=== PATIENT | female | born 1960 | race Caucasian/White ===

== ENCOUNTER 2019-08-17 09:29 | Outpatient (CLI) | payer MEDICARE, SELFPAY ==
--- NOTE | 2019-08-17 | XR_ITS ---
WS: [id number] LATERAL LUMBAR SPINE: 3 view. Lateral radiographs are performed in upright neutral, flexion and extension to the patient's toleranc e. HISTORY: LUMBOSACRAL RADICULOPATHY COMPARISON: 05/05/2018 L4 anterolisthesis by 8.1 mm on neutral imaging. During flexion anterolisthesis is 9.1 mm and during extension 4.6 mm. Otherwise disc spaces and vertebral body heights are well-maintained with the exception of moderate n arrowing at L5-S1. No fracture. XR/XR lumbar spine 2-3V* [id number] IMPRESSION: Grade 1 spondylolisthesis of L4 with mild instability during extension.
== END 2019-08-17 09:30 | disposition home or self-care (01) ==
PROVIDERS: Family Provider Family Medicine; Visit Provider Family Medicine
DX: M54.17 Radiculopathy, lumbosacral region (principal); M43.16 Spondylolisthesis, lumbar region

== ENCOUNTER 2019-12-02 09:45 | Outpatient (CLI) | payer MEDICARE, SELFPAY ==
--- NOTE | 2019-12-02 10:15 | CT_ITS ---
WS: [id number] CT LUMBAR SPINE TECHNIQUE: Noncontrast CT of the lumbar spine with coronal and sagittal reformatted images. CLINICAL INFORMATION: Low back pain COMPARISON: MRI September 08, 2019 DLP: 2060.[address] scans at [facility] use at least one of these dose optimization techniques: automat ed exposure control; mA and/or kV adjustment per patient size (includes targeted exams where dose is matched to clinical indication); or iterative reconstruction. FINDINGS: Mild lumbar curve. No acute compression. Slight anterolisthesis L4 on L5. Vacuum disc phenomenon L4-5 . Disc space narrowing worse L5-S1 with osteophytic ridging. L1-L2: Normal. L2-L3: Mild disc bulging with osteophytic ridging. Mild central canal stenosis. Moderate facet arthro abel. Mild bilateral foraminal narrowing. L3-L4: Mild disc bulging with osteophytic ridging. Moderate central canal stenosis. Moderate facet ar thropathy and ligamentum flavum hypertrophy. Mild left greater than right foraminal narrowing. L4-L5: Slight anterolisthesis L4 on L5. Disc bulging with osteophytic ridging results in severe centr al canal stenosis. Advanced facet arthropathy. Mild left greater than right foraminal narrowing. L5-S1: Mild disc bulging with osteophytic ridging. Disc space narrowing. Advanced facet arthropathy. Narrowing of the subarticular recess bilaterally. Mild right foraminal narrowing. Visualized pelvic bony structures: Normal. Paravertebral soft tissues: Normal. CT/CT lumbar spine wo con* [id number] IMPRESSION: 1. Mild lumbar curve with grade 1 anterolisthesis L4 on L5 unchanged. 2. Severe central canal stenosis L4-5 due to disc osteophyte complex with face t arthropathy ligament flavum hypertrophy. Advanced facet arthropathy at this l evel. 3. Mild central canal stenosis L2-3 and moderate central canal stenosis L3-4. 4. Mild foraminal narrowing described above. 5. Moderate to advanced facet arthropathy L3-4 and L4-5.
== END 2019-12-02 09:46 | disposition home or self-care (01) ==
PROVIDERS: Family Provider Family Medicine; PCP Family Medicine; Visit Provider Licensed Practical Nurse
DX: M54.5 Low back pain (principal); M48.061 Spinal stenosis, lumbar region without neurogenic claudication; M25.78 Osteophyte, vertebrae; M47.816 Spondylosis without myelopathy or radiculopathy, lumbar region
CPT/HCPCS: 72131

== ENCOUNTER 2021-04-25 14:52 | Outpatient (CLI) | payer MEDICARE, SELFPAY ==
--- NOTE | 2021-04-25 15:01 | MM_ITS ---
WS: [id number] BILATERAL DIGITAL SCREENING MAMMOGRAPHY WITH CAD CLINICAL INFORMATION: SCREENING HISTORY: Screening mammogram. No current complaints. COMPARISON: 3 5 TECHNIQUE: Bilateral CC and MLO views. FINDINGS: Scattered fibroglandular densities bilaterally. No suspicious focal mass, asymmetry, calcifications, or architectural distortion. No evidence of malignancy. A few punctate calcifications. Intramammary l ymph node upper outer left breast is unchanged. MM/[id number] IMPRESSION: BI-RADS: 2-Benign FOLLOW UP: 1 Year Follow-up Recommend return to annual screening mammography.
== END 2021-04-25 14:53 | disposition home or self-care (01) ==
LOC: RADSHAW 14:57
PROVIDERS: PCP Family Medicine; Visit Provider Family Medicine
DX: Z12.31 Encounter for screening mammogram for malignant neoplasm of breast (principal)
CPT/HCPCS: 77067

== ENCOUNTER 2022-01-23 15:25 | Outpatient (CLI) | payer MEDICARE, SELFPAY ==
--- NOTE | 2022-01-23 15:31 | MM_ITS ---
WS: [id number] VIEWS: MLO and CC views both breasts. 3D digital tomosynthesis is also included in this exam. Comparison made with prior exam of 09/01/2007, 10/05/2014, 04/25/2021.. Findings: Stable appearing nodular densities in both breasts. No areas of architectural distortion or suspiciou s calcification. Scattered fibroglandular densities MM/[id number] Impression: BI-RADS: 2-Benign FOLLOW-UP: 1 Year Follow-up This mammogram was also analyzed by the Computer Aided Detection System [employer] Employee Relations Assistant.
== END 2022-01-23 15:26 | disposition home or self-care (01) ==
LOC: RAD 15:26
PROVIDERS: PCP Family Medicine; Visit Provider Family Medicine
DX: Z12.31 Encounter for screening mammogram for malignant neoplasm of breast (principal)
CPT/HCPCS: 77063; 77067

== ENCOUNTER → 2022-12-04 10:40 | Outpatient (BNVA) | payer MEDICARE, SELFPAY | PROVIDERS: PCP Family Medicine; Referring Provider Family Medicine; Visit Provider Orthopaedic Surgery | DX: M17.0 Bilateral primary osteoarthritis of knee (principal) | CPT/HCPCS: 99203 ==

== ENCOUNTER 2023-01-25 08:23 | Outpatient (CLI) | payer MEDICARE, SELFPAY ==
--- NOTE | 2023-01-25 08:29 | MM_ITS ---
WS: [id number] BILATERAL SCREENING DIGITAL TOMOSYNTHESIS MAMMOGRAM WITH CAD HISTORY: SCREENING COMPARISON: 01/23/2022 and 04/25/2021 Bilateral CC and MLO views with tomosynthesis and synthetic mammography submitted. Computer aided det ection analyzed. Breast composition: There are scattered areas of fibroglandular density. No suspicious masses, microc alcifications or architectural distortion. Benign calcifications. Benign lymph node upper outer quadr ant LEFT breast. MM/[id number] IMPRESSION: BI-RADS: 2-Benign FOLLOW UP: 1 Year Follow-up
== END 2023-01-25 08:24 | disposition home or self-care (01) ==
PROVIDERS: PCP Family Medicine; Visit Provider Family Medicine
DX: Z12.31 Encounter for screening mammogram for malignant neoplasm of breast (principal)
CPT/HCPCS: 77063; 77067

== ENCOUNTER 2024-01-28 13:08 | Outpatient (CLI) | payer MEDICARE, SELFPAY ==
--- NOTE | 2024-01-28 13:19 | MM_ITS ---
WS: [id number] BILATERAL 3D TOMOSYNTHESIS DIGITAL SCREENING MAMMOGRAPHY WITH CAD CLINICAL INFORMATION: SCREENING HISTORY: Screening mammogram. No current complaints. COMPARISON: 2022 TECHNIQUE: Bilateral CC and MLO views. FINDINGS: Scattered fibroglandular densities bilaterally. No suspicious focal mass, asymmetry, calcifications, or architectural distortion. No evidence of malignancy. Incidental punctate and lucent centered calci fications. Vascular calcifications. MM/[id number] IMPRESSION: BI-RADS: 2-Benign FOLLOW UP: 1 Year Follow-up Recommend return to annual screening mammography.
== END 2024-01-28 13:09 | disposition home or self-care (01) ==
LOC: RAD 13:11
PROVIDERS: PCP Family Medicine; Visit Provider Family Medicine
DX: Z12.31 Encounter for screening mammogram for malignant neoplasm of breast (principal); R92.323 Mammographic fibroglandular density, bilateral breasts; R92.1 Mammographic calcification found on diagnostic imaging of breast
CPT/HCPCS: 77063; 77067

== ENCOUNTER 2024-04-13 10:09 | Emergency (ER) | payer MEDICARE, SELFPAY ==
[2024-04-13 10:16] VITALS: BP 141/99; PULSE 93; TEMP 36.4; O2SAT 98; BMI 32.9
--- NOTE | 2024-04-13 10:29 | XR_ITS ---
WS: [id number] XR knee RT 3V* [id number] REASON FOR EXAM: injury FINDINGS: There is relatively severe osteoarthritis in all 3 knee joint compartments. No acute fracture is identified. There is been advancement of the osteoarthritis in the medial knee joint compartment compared to prev ious examination of 11/19/2022, otherwise no significant interval change. XR/XR knee RT 3V* [id number] IMPRESSION: Relatively severe osteoarthritis of the right knee. No acute abnormality.
--- NOTE | 2024-04-13 10:31 | ED_ITS ---
HPI - Extremity Injury (Lower) 2 General: Chief Complaint: Extremity Injury, Lower Stated Complaint: fall Time Seen by Provider: 04/13/24 10:13 Source: patient Mode of arrival: EMS Limitations: no limitations History of Present Illness: Patient is a 64-year-old female presents to ED today with a complaint of an injury to her right knee. Patient states she was walking to her car when she felt like her knees locked . She states she was able to lower herself to the ground but did hear a pop in her right knee and has had pain since. She states it took multiple EMS personnel to get her up into the ambulance. She denies any other injuries sustained. Patient has reported a few falls over the past several months from weakness. Patient reportedly had a gastric bypass surgery back in June in [place] and states since the surgery she has felt weak. She has had continued follow-up through her bariatric team. complaint: knee injury Onset (ago): hour(s) Injury: Right: knee Place: home Severity: moderate Relieving factors: immobilization Exacerbating factors: weight bearing, movement and palpation Other symptoms: none Related Data Home Medications Medication Instructions Recorded Confirmed diphenhydramine 25 3 tab PO BEDTIME PRN Pain 10/23/19 04/13/24 mg-acetaminophen 500 mg tablet (Tylenol PM Extra Strength) fluticasone propionate 50 1 inh inhalation DAILY PRN 10/23/19 04/13/24 mcg/actuation blister powder for allergies inhalation gabapentin 400 mg capsule 400 mg PO TID 10/23/19 04/13/24 levothyroxine 137 mcg capsule 137 mcg PO DAILY 10/23/19 04/13/24 tramadol 50 mg tablet 50 mg PO TID PRN Pain 10/23/19 04/13/24 multivitamin with iron 1 tab PO DAILY 04/13/24 04/13/24 omeprazole 40 mg capsule,delayed 40 mg PO DAILY 04/13/24 04/13/24 release Allergies Allergy/AdvReac Type Severity Reaction Status Date / Time No Known Allergies Allergy Verified 04/13/24 10:22 Review of Systems 2 Const: Reports: other (generalized weakness); Denies: fever(s), chills, body aches, fatigue or malaise Card: Denies: chest pain, palpitations, lightheadedness, syncope or pre- syncope Resp: Denies: dyspnea GI: Denies: abdominal pain or vomiting : Denies: flank pain or dysuria Musc: Reports: joint pain (R knee); Denies: neck pain, back pain, extremity pain or extremity swelling Neuro: Denies: numbness in extremities or sensory changes PFSH ED 2 PFSH: Medical History (Updated 04/13/24 @ 15:01 by WINNIE Rodríguez) Instability of joint Spondylolisthesis, lumbar region Morbid obesity with BMI of 50.0-59.9, adult Lumbar stenosis with neurogenic claudication Intervertebral disc disorder with radiculopathy of lumbosacral region Spondylolisthesis (~08/15/16) Surgical History History of tonsillectomy History of knee surgery right knee laproscopic History of hysterectomy History of cervical spinal surgery (~2016) Dr. Abran Colindres Family History Mother Stroke Arthritis Social History Smoking and tobacco/nicotine status: never used tobacco/nicotine Alcohol intake: never Substance/Drug Use: never Household members: spouse and family Marital status: Current occupational status: retired and disabled Physical Exam 2 Const: COMMON NORMALS: no acute distress, patient oriented x3, no limitations, alert and well nourished GENERAL APPEARANCE: cooperative O RIENTATION/CONSCIOUSNESS: Yes awake, Yes oriented to person, Yes oriented to place and Yes oriented to time HENMT: COMMON NORMALS: normocephalic and atraumatic HEAD & SCALP: normal to inspection, normocephalic and atraumatic Neck/C-Spine: COMMON NORMALS: full ROM CERVICAL SPINE: No Cervical spine tenderness Chest: COMMONS NORMALS: normal inspection of the chest and normal palpation of entire chest wall Resp: COMMON NORMALS: normal respiratory effort and clear to auscultation bilaterally AUSCULTATION: clear to auscultation bilaterally Cardio: COMMON NORMALS: regular rate and regular rhythm RATE: regular rate RHYTHM: regular rhythm GI: COMMON NORMALS: non-tender AUSCULTATION: Yes normoactive bowel sounds : COMMON NORMALS: Yes no CVA tenderness BLADDER/KIDNEY EXAM: Yes no CVA tenderness Back/Pelvis: COMMON NORMALS: no CVA tenderness and thoracic and lumbar spine normal to inspection Extremity: COMMON NORMALS: capillary refill normal, no calf tenderness and no pedal edema GENERAL: Yes normal exam except as noted RIGHT LOWER EXTREMITY: Yes knee joint Right knee: Yes palpation (TTP; significant arthritic crepitus noted) and Yes neurovascular exam (normal) Neuro: COMMON NORMALS: patient oriented x3, moves all extremities, no focal motor deficits and no sensory deficits noted SENSORIUM/ORIENTATION: Yes alert, Yes oriented to person, Yes oriented to place and Yes oriented to time Skin: COMMON NORMALS: no rashes or lesions noted GENERAL SKIN EXAM: no rashes or lesions noted Course 2 Vital Signs: Vital signs: Vital Signs Temperature 97.5 F L 04/13/24 10:16 Pulse Rate 77 04/13/24 11:58 Respiratory Rate 16 04/13/24 14:51 Blood Pressure 155/91 04/13/24 14:51 Pulse Oximetry 98 04/13/24 14:51 Oxygen Delivery Me thod Room Air 04/13/24 10:16 MDM - Extremity Injury (Lower) Medical Decision Making Patient here following a right knee injury. Her XR is unremarkable apart from chronic severe osteoarthritis. She was ambulatory here without difficulty or assistance. CBC, CMP obtained due to her complaint of weakness. She states this has been present since June since she had her bariatric surgery. She has a follow-up appointment with them on Saturday. CBC is unremarkable. Her CMP showing mild hypokalemia at 3.1. She was given oral replacement for this. Her LFTs are mildly elevated. We do not have any previous lab values for comparison. Patient is status postcholecystectomy. She did have hepatitis/HIV testing ran on her as one of the RN/phlebotomists stuck herself during lab draw. These are unremarkable. We attempted to contact [facility] for previous lab records however after waiting several hours they still have not faxed these. We will have patient follow-up with her bariatric team on Saturday as scheduled and bring these labs today with her so they can compare with previous values. If these are new she will require further evaluation for these. She has no complaints of abdominal pain at this time. She is not vomiting. I do not feel she needs emergent imaging at this time. Medical Records I reviewed the patient's medical records. Lab Data I reviewed the patient's lab results. 04/13/24 12:34 04/13/24 12:34 Radiology Impressions Knee X-Ray 04/13/24 10:29 IMPRESSION: Relatively severe osteoarthritis of the right knee. No acute abnormality. Laboratory Results WBC 7.63 10^3/uL (3.29-11.43) 04/13/24 12:34 RBC 5.00 10^6/uL (3.85-5.65) 04/13/24 12:34 Hgb 15.10 g/dL (11.27-16.99) 04/13/24 12:34 Hct 45.6 % (36-47) 04/13/24 12:34 MCV 91.2 fl (85-98) 04/13/24 12:34 MCH 30.2 pg (27-33) 04/13/24 12:34 MCHC 33.1 g/dL (30-55) 04/13/24 12:34 RDW 12.2 % (12.1-15.1) 04/13/24 12:34 Plt Count 235 10^3/cmm (157-399) 04/13/24 12:34 MPV 10.9 fL (7.4-10.4) H 04/13/24 12:34 Neut % (Auto) 82.6 % 04/13/24 12:34 Lymph % (Auto) 11.7 % 04/13/24 12:34 Walsh % (Auto) 5.1 % 04/13/24 12:34 Eos % (Auto) 0.1 % 04/13/24 12:34 Baso % (Auto) 0.4 % 04/13/24 12:34 Neut # (Auto) 6.30 10^3/uL (1.8-7.7) 04/13/24 12:34 Lymph # (Auto) 0.9 10^3/uL (0.8-4.8) 04/13/24 12:34 Walsh # (Auto) 0.4 10^3/uL (0.2-0.9) 04/13/24 12:34 Eos # (Auto) 0.0 10^3/uL (0.0-0.8) 04/13/24 12:34 Baso # (Auto) 0.0 10^3/uL (0.0-0.1) 04/13/24 12:34 Nucleated RBC % (auto) 0 % 04/13/24 12:34 Nucleated RBCs # 0.0 /100WBC 04/13/24 12:34 Sodium 142 mmol/L (136-145) 04/13/24 12:34 Potassium 3.1 mmol/L (3.5-5.1) L 04/13/24 12:34 Chloride 103 mmol/L (98-107) 04/13/24 12:34 Carbon Dioxide 25 mmol/L (22-29) 04/13/24 12:34 Anion Gap 17.1 (5-19) 04/13/24 12:34 BUN 12 mg/dL (8-23) 04/13/24 12:34 Creatinine 0.8 mg/dL (0.5-0.9) 04/13/24 12:34 GFR Calculation 72.0 mL/min (90-130) L 04/13/24 12:34 Glucose 124 mg/dL (65-115) H 04/13/24 12:34 Calculated Osmolality 295 mOsm/kg (285-295) 04/13/24 12:34 Calcium 9.5 mg/dL (8.5-10.5) 04/13/24 12:34 Total Bilirubin 2.4 mg/dL (0.15-1.2) H 04/13/24 12:34 AST 90 U/L (0-32) H 04/13/24 12:34 ALT 53 U/L (0-33) H 04/13/24 12:34 Alkaline Phosphatase 176 U/L (35-105) H 04/13/24 12:34 Total Protein 5.5 g/dL (6.6-8.7) L 04/13/24 12:34 Albumin 2.8 g/dL (3.5-5.2) L 04/13/24 12:34 Globulin 2.7 g/dL (1.3-4.6) 04/13/24 12:34 Hep Bs Antigen Non-reactive (Nonreactive) 04/13/24 12:34 Hepatitis C Antibody Non-reactive (Nonreactive) 04/13/24 12:34 HIV 1&2 Ab & HIV 1 Ag Non-reactive (Non-Reactiv) 04/13/24 12:34 HIV 1&2 Antibody Non-reactive (Non-Reactiv) 04/13/24 12:34 All radiology interpretation(s) finalized by discharge Discharge Plan Discharge Patient Disposition: Home Clinical Impression: Elevated LFTs Injury of knee, right Qualifiers: Encounter type: initial encounter Qualified Code(s): S89.91XA - Unspecified injury of right lower leg, initial encounter Condition: Stable Prescriptions: No Action fluticasone propionate 50 mcg/actuation blister with device 1 inh INHALATION DAILY PRN (Reason: allergies) levothyroxine 137 mcg capsule 137 mcg PO DAILY gabapentin 400 mg capsule 400 mg PO TID tramadol 50 mg tablet 50 mg PO TID PRN (Reason: Pain) diphenhydramine-acetaminophen [Tylenol PM Extra Strength] 25-500 mg tablet 3 tab PO BEDTIME PRN (Reason: Pain) omeprazole 40 mg capsule,delayed release(DR/EC) 40 mg PO DAILY multivitamin with iron Tablet 1 tab PO DAILY Discharge Orders: Discharge ED (Routine); Ordered 04/13/24 Ordered By: Mady Munoz Referrals: Noel Landon MD [Primary Care Provider] - Activity Restrictions/Additional Instructions: As we discussed, make sure you get a copy of your labs prior to discharge. Your liver enzymes were elevated today. Unknown whether these are new or chronic. We attempted records from [facility] however, after several hours, they still have yet to fax labs. I would like you to bring those labs with you to your appointment on Saturday so they can compare. He may require further follow-up for this. Coding Level of Care Code ED [employer] for Harshal Momin
--- NOTE | 2024-04-13 11:13 | PC.NURSE ---
this nurse assumed pt care at 1100.
[2024-04-13 11:58] VITALS: BP 128/92; PULSE 77; RESP 16; O2SAT 99
[2024-04-13 12:42] LABS: Basophils % 0.4 %; Eosinophils % 0.1 %; Hematocrit 45.6 % (36-47); Lymphocytes # 0.9 10^3/uL (0.8-4.8); Lymphocytes % 11.7 %; Mean Corpuscular HGB Conc 33.1 g/dL (30-55); Mean Corpuscular Hemoglobin 30.2 pg (27-33); Mean Corpuscular Volume 91.2 fl (85-98); Mean Platelet Volume 10.9 fL (7.4-10.4); Monocytes # 0.4 10^3/uL (0.2-0.9); Monocytes % 5.1 %; Neutrophils % 82.6 %; Nucleated Red Blood Cells % 0 %; Platelet Count 235 10^3/cmm (157-399); Red Cell Distribution Width 12.2 % (12.1-15.1); White Blood Count 7.63 10^3/uL (3.29-11.43)
[2024-04-13 13:05] LABS: Alanine Aminotransferase 53 U/L (0-33); Albumin Level 2.8 g/dL (3.5-5.2); Alkaline Phosphatase 176 U/L (35-105); Anion Gap 17.1 (5-19); Aspartate Amino Transferase 90 U/L (0-32); Blood Urea Nitrogen 12 mg/dL (8-23); Calcium 9.5 mg/dL (8.5-10.5); Carbon Dioxide 25 mmol/L (22-29); Chloride 103 mmol/L (98-107); Globulin 2.7 g/dL (1.3-4.6); Glucose 124 mg/dL (65-115); Osmolality Calculated 295 mOsm/kg (285-295); Potassium 3.1 mmol/L (3.5-5.1); Sodium 142 mmol/L (136-145); Total Bilirubin 2.4 mg/dL (0.15-1.2); Total Protein 5.5 g/dL (6.6-8.7)
[2024-04-13 14:27] LABS: Hepatitis B Surface Antigen Non-Reactive (Nonreactive); Hepatitis C Virus Antibody Non-Reactive (Nonreactive)
[2024-04-13] MEDS: potassium chloride ER 20 mEq Tablet 40 MEQ PO (14:43)
[2024-04-13 14:46] LABS: HIV 1 & 2 Antibody Non-Reactive (Non-Reactiv); HIV 1 & 2 Antigen Non-Reactive (Non-Reactiv)
[2024-04-13 14:51] VITALS: BP 155/91; RESP 16; O2SAT 98
[2024-04-13 15:19] VITALS: BP 151/93; PULSE 77; O2SAT 100
== END 2024-04-13 15:19 | disposition home or self-care (01) ==
PROVIDERS: Emergency Provider Physician Assistant; PCP Family Medicine
DX: S89.91XA Unspecified injury of right lower leg, initial encounter (principal); R79.89 Other specified abnormal findings of blood chemistry; X58.XXXA Exposure to other specified factors, initial encounter
CPT/HCPCS: 73562; 80053; 85025; 86803; 87340; 87806; 99284

== ENCOUNTER 2024-05-24 21:26 | Emergency (ER) | payer MEDICARE, SELFPAY ==
[2024-05-24 21:28] VITALS: BP 108/93; PULSE 72; RESP 16; TEMP 36.4; O2SAT 97; BMI 31.4
--- NOTE | 2024-05-24 21:36 | ED_ITS ---
HPI - Abdominal Pain 2 General: Chief Complaint: Nausea/Vomiting/Diarrhea Stated Complaint: ABD PAIN Time Seen by Provider: 05/24/24 21:34 History of Present Illness: 64-year-old female comes in today with c omplaints of abdominal pain since Saturday with diarrhea. Patient appears chronically ill. Patient appears pale. Patient has a history of asthma and hypothyroidism. Patient takes medication for GERD and pain. Patient has had gastric bypass 1 year ago, neck surgery, gallbladder removal, arthroscopy on the knee, and a hysterectomy. Patient denies diabetes or high blood pressure. Related Data Home Medications Medication Instructions Recorded Confirmed diphenhydramine 25 3 tab PO BEDTIME PRN Pain 10/23/19 04/13/24 mg-acetaminophen 500 mg tablet (Tylenol PM Extra Strength) fluticasone propionate 50 1 inh inhalation DAILY PRN 10/23/19 04/13/24 mcg/actuation blister powder for allergies inhalation gabapentin 400 mg capsule 400 mg PO TID 10/23/19 04/13/24 levothyroxine 137 mcg capsule 137 mcg PO DAILY 10/23/19 04/13/24 tramadol 50 mg tablet 50 mg PO TID PRN Pain 10/23/19 04/13/24 multivitamin with iron 1 tab PO DAILY 04/13/24 04/13/24 omeprazole 40 mg capsule,delayed 40 mg PO DAILY 04/13/24 04/13/24 release Previous Rx's Medication Instructions Recorded apixaban 5 mg (74 tabs) tablets in See Rx Instructions PO .COMPLEX 05/25/24 a dose pack ([employer] DVT-PE Treat #74 ea 30D Start) nitrofurantoin 100 mg PO BID 5 days #10 caps 05/25/24 monohydrate/macrocrystals 100 mg capsule (Macrobid) Allergies Allergy/AdvReac Type Severity Reaction Status Date / Time No Known Allergies Allergy Verified 04/13/24 10:22 Review of Systems 2 General: Reports: 10 or more systems reviewed and unremarkable except in HPI and below PFSH ED 2 PFSH: Medical History (Updated 05/25/24 @ 00:11 by PHILIP Moncada) Instability of joint Spondylolisthesis, lumbar region Morbid obesity with BMI of 50.0-59.9, adult Lumbar stenosis with neurogenic claudication Intervertebral disc disorder with radiculopathy of lumbosacral region Spondylolisthesis (~01/11/17) Surgical History History of tonsillectomy History of knee surgery right knee laproscopic History of hysterectomy History of cervical spinal surgery (~2016) Dr. Abran Colindres Family History Mother Stroke Arthritis Social History Smoking and tobacco/nicotine status: never used tobacco/nicotine Alcohol intake: never Substance/Drug Use: never Household members: spouse and family Marital status: Current occupational status: retired and disabled Physical Exam 2 Const: COMMON NORMALS: alert HENMT: COMMON NORMALS: normocephalic HEAD & SCALP: normocephalic Neck/C-Spine: COMMON NORMALS: full ROM Resp: COMMON NORMALS: normal respiratory effort Cardio: COMMON NORMALS: regular rate RATE: regular rate GI: COMMON NORMALS: Soft to palpation PALPATION: Yes Soft to palpation and Yes Tenderness to palpation present (GI) (Generalized tenderness) Back/Pelvis: COMMON NORMALS: thoracic and lumbar spine normal to inspection Extremity: COMMON NORMALS: full ROM Neuro: SENSORIUM/ORIENTATION: Yes alert Skin: NARRATIVE SKIN EXAM: Skin turgor decreased. Course 2 Vital Signs: Vital signs: Vital Signs Temperature 97.6 F 05/24/24 21:28 Pulse Rate 72 05/24/24 21:28 Respiratory Rate 16 05/24/24 21:28 Blood Pressure 108/93 05/24/24 21:28 Pulse Oximetry 97 05/24/24 21:28 Oxygen Delivery Me thod Room Air 05/24/24 21:28 MDM - Abdominal Pain Medical Decision Making 64-year-old female comes in today with generalized abdominal pain and diarrhea since Saturday. Patient appears nontoxic. Patient is pale. Patient reports no blood in stool. On exam abdomen is soft with generalized tenderness. Bowel sounds are decreased. Vital signs are normal. Differential diagnosis includes not limited to GI bleed, gastroenteritis, dehydration, perforation of bowel, malnutrition. CBC was unremarkable. CMP had some mild hyponatremia. Liver enzymes remain elevated but no significant change from prior exam. CT of the abdomen noted some mild bilateral pleural effusions and DVT of the right lower extremity patient was also noted to have severe fatty infiltration of the liver with mild hepatomegaly. Reviewed exam with patient with recommendations for treatment for DVT with Eliquis, and Macrobid for her urinary tract infections that was noted on the urine. Patient reports that she has been having these episodes for weeks now and has actually been seen in [facility] regarding the symptoms. They believe it is related to her gastric bypass. Recommended that patient follow back up with her gastric bypass surgeon to discuss options for reversal of the procedure or other recommendations. Lab Data 05/24/24 21:45 05/24/24 21:45 Labs/Radiology: Radiology Impressions Abdomen/Pelvis CT 05/24/24 21:41 IMPRESSION: 1. There is low volume free intraperitoneal fluid, body wall edema, and bilateral pleural effusions which could reflect fluid overload. Heart size is normal and there is no pulmonary edema to suggest heart failure. 2. Probable right lower extremity deep venous thrombosis. Consider correlation with duplex exam. 3. Otherwise no acute abnormality in the abdomen or pelvis. No evidence of bowel obstruction or urolithiasis. No findings to suggest appendicitis. 4. Severe fatty infiltration of the liver with mild hepatomegaly. ADDENDUM: 05/24/24 [id number] THIS REPORT CONTAINS FINDINGS THAT MAY BE CRITICAL TO PATIENT CARE. The findings were verbally communicated via telephone conference with Dr. Sutton at 11:57 PM CDT on 05/24/2024. The findings were acknowledged and understood. Laboratory Results WBC 3.74 10^3/uL (3.29-11.43) 05/24/24 21:45 RBC 4.03 10^6/uL (3.85-5.65) 05/24/24 21:45 Hgb 12.80 g/dL (11.27-16.99) 05/24/24 21:45 Hct 37.0 % (36-47) 05/24/24 21:45 MCV 91.8 fl (85-98) 05/24/24 21:45 MCH 31.8 pg (27-33) 05/24/24 21:45 MCHC 34.6 g/dL (30-55) 05/24/24 21:45 RDW 21.0 % (12.1-15.1) H 05/24/24 21:45 Plt Count 239 10^3/cmm (157-399) 05/24/24 21:45 MPV 10.1 fL (7.4-10.4) 05/24/24 21:45 Neut % (Auto) 59.9 % 05/24/24 21:45 Lymph % (Auto) 31.0 % 05/24/24 21:45 [place] % (Auto) 7.2 % 05/24/24 21:45 Eos % (Auto) 1.1 % 05/24/24 21:45 Baso % (Auto) 0.5 % 05/24/24 21:45 Neut # (Auto) 2.24 10^3/uL (1.8-7.7) 05/24/24 21:45 Lymph # (Auto) 1.2 10^3/uL (0.8-4.8) 05/24/24 21:45 [place] # (Auto) 0.3 10^3/uL (0.2-0.9) 05/24/24 21:45 Eos # (Auto) 0.0 10^3/uL (0.0-0.8) 05/24/24 21:45 Baso # (Auto) 0.0 10^3/uL (0.0-0.1) 05/24/24 21:45 Nucleated RBC % (auto) 0 % 05/24/24 21:45 Nucleated RBCs # 0.0 /100WBC 05/24/24 21:45 Sodium 132 mmol/L (136-145) L 05/24/24 21:45 Potassium 3.5 mmol/L (3.5-5.1) 05/24/24 21:45 Chloride 98 mmol/L (98-107) 05/24/24 21:45 Carbon Dioxide 25 mmol/L (22-29) 05/24/24 21:45 Anion Gap 12.5 (5-19) 05/24/24 21:45 BUN 10 mg/dL (8-23) 05/24/24 21:45 Creatinine 0.7 mg/dL (0.5-0.9) 05/24/24 21:45 GFR Calculation 84.0 mL/min (90-130) L 05/24/24 21:45 Glucose 98 mg/dL (65-115) 05/24/24 21:45 Calculated Osmolality 273 mOsm/kg (285-295) L 05/24/24 21:45 Calcium 8.6 mg/dL (8.5-10.5) 05/24/24 21:45 Total Bilirubin 2.7 mg/dL (0.15-1.2) H 05/24/24 21:45 AST 82 U/L (0-32) H 05/24/24 21:45 ALT 65 U/L (0-33) H 05/24/24 21:45 Alkaline Phosphatase 316 U/L (35-105) H 05/24/24 21:45 Total Protein 4.9 g/dL (6.6-8.7) L 05/24/24 21:45 Albumin 2.7 g/dL (3.5-5.2) L 05/24/24 21:45 Globulin 2.2 g/dL (1.3-4.6) 05/24/24 21:45 Lipase 8 U/L (13-60) L 05/24/24 21:45 Urine Color Dark yellow (Yellow) A 05/24/24 23:19 Urine Appearance Clear (CLEAR) 05/24/24 23:19 Urine pH 7.5 (5-7) 05/24/24 23:19 Ur Specific [place] 1.054 (1.005-1.030) H 05/24/24 23:19 Urine Protein Trace (Negative) A 05/24/24 23:19 Urine Glucose (UA) Negative (Normal) 05/24/24 23:19 Urine Ketones Negative (Negative) 05/24/24 23:19 Urine Blood Negative (Negative) 05/24/24 23:19 Urine Nitrate Positive (Negative) A 05/24/24 23:19 Urine Bilirubin 1+ (Negative) H 05/24/24 23:19 Urine Urobilinogen 1.0 mg/dL (Negative) 05/24/24 23:19 Ur Leukocyte Esterase 2+ (Negative) A 05/24/24 23:19 Urine RBC 6-10 /hpf (0-2) 05/24/24 23:19 Urine WBC 21-50 /hpf (0-5) H 05/24/24 23:19 Ur Squamous Epith Cells 0-5 /hpf (0-5) 05/24/24 23:19 Amorphous Sediment Not Reportable 05/24/24 23:19 Urine Bacteria 4+ /hpf (NONE) H 05/24/24 23:19 Hyaline Casts 8.67 /lpf 05/24/24 23:19 All radiology interpretation(s) finalized by discharge Discharge Plan Discharge Patient Disposition: Home Clinical Impression: Acute UTI Right leg DVT Qualifiers: Affected thrombotic vein of extremity: unspecified vein of extremity C hronicity: acute Qualified Code(s): I82.401 - Acute embolism and thrombosis of unspecified deep veins of right lower extremity Condition: Stable Prescriptions: New Eliquis DVT-PE Treat 30D Start 5 mg (74 tabs) tablets,dose pack See Rx Instructions .ROUTE .COMPLEX Qty: 74 0RF Rx Instructions: orally per package directions nitrofurantoin monohyd/m-cryst [Macrobid] 100 mg capsule 100 mg PO BID 5 Days Qty: 10 0RF Rx Instructions: must administer with a meal/food No Action fluticasone propionate 50 mcg/actuation blister with device 1 inh INHALATION DAILY PRN (Reason: allergies) levothyroxine 137 mcg capsule 137 mcg PO DAILY gabapentin 400 mg capsule 400 mg PO TID tramadol 50 mg tablet 50 mg PO TID PRN (Reason: Pain) diphenhydramine-acetaminophen [Tylenol PM Extra Strength] 25-500 mg tablet 3 tab PO BEDTIME PRN (Reason: Pain) omeprazole 40 mg capsule,delayed release(DR/EC) 40 mg PO DAILY multivitamin with iron Tablet 1 tab PO DAILY Discharge Orders: Discharge ED (Routine); Ordered 05/25/24 Ordered By: Ismael Perez Referrals: Noel Landon MD [Primary Care Provider] - Discharge Diet: Usual diet Discharge Activity: Increase activity as tolerated Patient Instructions: Deep Vein Thrombosis (ED) Activity Restrictions/Additional Instructions: Home and rest. Take medication as directed. Follow-up with primary care in the morning for further recommendations of treatment. Follow-up with surgeon regarding the persistent nausea and poor oral intake. Coding Level of Care Code ED [employer] for Harshal Momin
--- NOTE | 2024-05-24 21:41 | CTR_ITS ---
PROCEDURE INFORMATION: Exam: CT Abdomen And Pelvis With Contrast Exam date and time: 05/24/2024 9:51 PM Age: 64 years old Clinical indication: Abdominal pain; Prior surgery; Surgery date: 6+ months; Surgery type: Gastric sleeve. Gb. Hysterectomy; Patient HX: C/O epigastric pain with n/v. ; Additional info: Diffuse abd pain TECHNIQUE: Imaging protocol: Computed tomography of the abdomen and pelvis with contrast. Radiation optimization: All CT scans at this facility use at least one of these dose optimization techniques: automated exposure control; mA and/or kV adjustment per patient size (includes targeted exams where dose is matched to clinical indication); or iterative reconstruction. Contrast material: OMNI 350; Contrast volume: 100 ml; Contrast route: INTRAVENOUS (IV); COMPARISON: CT lumbar spine wo con* [id number] 12/02/2019 10:00 AM RADIATION DOSE METRICS: Total DLP (mGy-cm): 900.49 FINDINGS: Lungs: Minor compressive atelectasis at each lung base. Pleural spaces: Left larger than right non loculated pleural effusions. Heart: Heart size is normal. Liver: Homogeneous low attenuation throughout the liver is compatible with fatty infiltration. Liver measures 18.7 cm in length. Gallbladder and biliary ducts: Prior cholecystectomy. No biliary tree dilation or high-density retained stones appreciated. Pancreas: There is fatty atrophy of the pancreas without visible edema or mass. Spleen: Spleen measures 10.6 cm in length. Adrenal glands: Normal configuration. Kidneys and ureters: No evidence of obstruction. No visible inflammation. Stomach and bowel: Changes of prior gastric sleeve procedure are noted. There are also changes of gastric bypass with Katarina-en-Y reconstruction. Normal caliber small bowel. Decompressed colon. Appendix: Normal appendix is confirmed. Intraperitoneal space: Low volume free intraperitoneal fluid. No free air. Vasculature: Filling defect noted in the contrast column of the right common femoral vein. Systemic venous structures otherwise appear normal. Minimal aortoiliac calcific atherosclerosis. No evidence of aneurysm. Patent portal vein. Lymph nodes: No enlarged lymph nodes. Urinary bladder: Unremarkable as visualized. Reproductive: Prior hysterectomy. No evidence of vaginal cuff or adnexal mass. Bones/joints: Diffuse fatty atrophy of skeletal muscle. Soft tissues: Moderate body wall edema. CT/CT abdomen pelvis w con* [id number] IMPRESSION: 1. There is low volume free intraperitoneal fluid, body wall edema, and bilateral pleural effusions which could reflect fluid overload. Heart size is normal and there is no pulmonary edema to suggest heart failure. 2. Probable right lower extremity deep venous thrombosis. Consider correlation with duplex exam. 3. Otherwise no acute abnormality in the abdomen or pelvis. No evidence of bowel obstruction or urolithiasis. No findings to suggest appendicitis. 4. Severe fatty infiltration of the liver with mild hepatomegaly.
[2024-05-24 21:52] LABS: Basophils % 0.5 %; Eosinophils % 1.1 %; Lymphocytes # 1.2 10^3/uL (0.8-4.8); Mean Corpuscular HGB Conc 34.6 g/dL (30-55); Mean Corpuscular Hemoglobin 31.8 pg (27-33); Mean Corpuscular Volume 91.8 fl (85-98); Mean Platelet Volume 10.1 fL (7.4-10.4); Monocytes # 0.3 10^3/uL (0.2-0.9); Monocytes % 7.2 %; Neutrophils # 2.24 10^3/uL (1.8-7.7); Neutrophils % 59.9 %; Nucleated Red Blood Cells % 0 %; Platelet Count 239 10^3/cmm (157-399); Red Blood Count 4.03 10^6/uL (3.85-5.65); White Blood Count 3.74 10^3/uL (3.29-11.43)
[2024-05-24] MEDS: iohexol 350 mg/mL 500 mL Btl (per mL) IV (21:52)
[2024-05-24 22:14] LABS: Alanine Aminotransferase 65 U/L (0-33); Albumin Level 2.7 g/dL (3.5-5.2); Alkaline Phosphatase 316 U/L (35-105); Anion Gap 12.5 (5-19); Aspartate Amino Transferase 82 U/L (0-32); Blood Urea Nitrogen 10 mg/dL (8-23); Calcium 8.6 mg/dL (8.5-10.5); Carbon Dioxide 25 mmol/L (22-29); Chloride 98 mmol/L (98-107); Creatinine Clr Calc Pharmacy 78.5369; Globulin 2.2 g/dL (1.3-4.6); Glucose 98 mg/dL (65-115); Lipase 8 U/L (13-60); Osmolality Calculated 273 mOsm/kg (285-295); Potassium 3.5 mmol/L (3.5-5.1); Sodium 132 mmol/L (136-145); Total Bilirubin 2.7 mg/dL (0.15-1.2); Total Protein 4.9 g/dL (6.6-8.7)
[2024-05-24] MEDS: sodium chloride 0.9% 1,000 ML 999 ML IV (22:32)
[2024-05-24 23:28] LABS: Bilirubin Urine 1+ (Negative); Blood Urine Negative (Negative); Glucose Urine UA Negative (Normal); Ketones Urine Negative (Negative); Leukocyte Esterase Urine 2+ (Negative); Nitrate Urine Positive (Negative); Protein Urine Trace (Negative); Urine Appearance Clear (CLEAR); Urine Color Dark Yellow (Yellow); pH Urine 7.5 (5-7)
[2024-05-24 23:31] LABS: Add Urine Microscopic? YES; Bacteria Urine 4+ /hpf; Hyaline Casts Urine 8.67 /lpf; Squamous Epithelial Cell Urine 0-5 /hpf (0-5); Universal Test for UA Present (0); WBC Urine 21-50 /hpf (0-5)
[2024-05-24 23:44] LABS: Add Urine Culture? Yes; Specific Gravity, Urine 1.054 (1.005-1.030)
[2024-05-25] MEDS: cefTRIAXone 2,000 mg SDV 2000 MG IVP
[2024-05-25] MEDS: apixaban 5 mg Tablet 10 MG PO (00:20)
== END 2024-05-25 00:37 | disposition home or self-care (01) ==
PROVIDERS: Emergency Provider Nurse Practitioner Family; PCP Family Medicine
DX: N39.0 Urinary tract infection, site not specified (principal); I82.401 Acute embolism and thrombosis of unspecified deep veins of right lower extremity
CPT/HCPCS: 74177; 80053; 81001; 83690; 85025; 87077; 87086; 87186; 96374; 99285; J0696; J7030

== ENCOUNTER 2024-06-07 00:51 | Emergency (ER) | payer MEDICARE, SELFPAY ==
[2024-06-07 00:57] VITALS: BP 114/75; PULSE 73; RESP 18; TEMP 36.8; O2SAT 100; BMI 31.4
--- NOTE | 2024-06-07 01:17 | ED_ITS ---
HPI - Nausea/Vomiting/Diarrhea 2 General: Chief complaint: Nausea/Vomiting/Diarrhea Stated complaint: N/V Time Seen by Provider: 06/07/24 01:50 CDT History of Present Illness: 64-year-old female with a history of gas tric bypass surgery 1 year ago. She presents with vomiting, and diarrhea, on and off for the last month or more. She has been generally weak. It has been difficult to get out of bed. She has had a couple of visits here for various complaints. She had a PICC line placed on Saturday, apparently for parenteral nutrition, but has not received any nutrition through the line yet. She is requesting admission. She denies fever. She denies blood in the stool. Related Data Home Medications Medication Instructions Recorded Confirmed diphenhydramine 25 3 tab PO BEDTIME PRN Pain 10/23/19 06/07/24 mg-acetaminophen 500 mg tablet (Tylenol PM Extra Strength) gabapentin 400 mg capsule 400 mg PO TID 10/23/19 06/07/24 levothyroxine 137 mcg capsule 137 mcg PO DAILY 10/23/19 06/07/24 tramadol 50 mg tablet 50 mg PO TID PRN Pain 10/23/19 06/07/24 multivitamin with iron 1 tab PO DAILY 04/13/24 06/07/24 omeprazole 40 mg capsule,delayed 40 mg PO DAILY 04/13/24 06/07/24 release Previous Rx's Medication Instructions Recorded apixaban 5 mg (74 tabs) tablets in See Rx Instructions PO .COMPLEX 05/25/24 a dose pack ([employer] DVT-PE Treat #74 ea 30D Start) Allergies Allergy/AdvReac Type Severity Reaction Status Date / Time No Known Allergies Allergy Verified 04/13/24 10:22 [facility] ED 2 [facility]: Medical History (Updated 06/07/24 @ 15:14 by Alexandro Matthew DO) Instability of joint Spondylolisthesis, lumbar region Morbid obesity with BMI of 50.0-59.9, adult Lumbar stenosis with neurogenic claudication Intervertebral disc disorder with radiculopathy of lumbosacral region Spondylolisthesis (~08/15/16) Surgical History (Updated 06/07/24 @ 15:14 by Alexandro Matthew DO) History of tonsillectomy History of knee surgery right knee laproscopic History of hysterectomy History of cervical spinal surgery (~2016) Dr. Abran Deleon [place] Family History Mother Stroke Arthritis Social History (Reviewed 06/07/24 @ 01:19 WASHERY BOSS by Alexandro Matthew DO) Smoking and tobacco/nicotine status: never used tobacco/nicotine Alcohol intake: never Substance/Drug Use: never Household members: spouse and family Marital status: Current occupational status: retired and disabled Physical Exam 2 Const: GENERAL APPEARANCE: cooperative, ill appearing, frail appearing (Mildly) and other (Pale) HENMT: COMMON NORMALS: normocephalic, atraumatic and Normal external nose present HEAD & SCALP: normocephalic and atraumatic FACE & SINUS: normal facial exam and face symmetric NOSE: Normal external nose present Eye: COMMON NORMALS: Equal, round and reactive pupils present and EOMs intact bilaterally PUPIL: Yes Equal, round and reactive pupils present Neck/C-Spine: GENERAL: Yes trachea midline Chest: CHEST: Yes Symmetrical chest wall rise Resp: COMMON NORMALS: normal respiratory effort, No retractions, No use of accessory muscles and clear to auscultation bilaterally AUSCULTATION: clear to auscultation bilaterally Cardio: COMMON NORMALS: regular rate and regular rhythm RATE: regular rate RHYTHM: regular rhythm GI: COMMON NORMALS: Normal to inspection, nondistended, normoactive bowel sounds present Extremity: COMMON NORMALS: no pedal edema Neuro: RIYA COMA SCALE: document GCS findings Riya coma scale eye opening: Spontaneous [place] coma scale verbal response: Orientated Riya coma scale motor response: Obey commands Riya coma scale total score: 15 S ENSORY EXAM: Yes extremities (intact) Psych: COMMON NORMALS: speech normal SPEECH: Yes normal speech Skin: COMMON NORMALS: no rashes or lesions noted GENERAL SKIN EXAM: no rashes or lesions noted Course 2 Vital Signs: Vital signs: Vital Signs Temperature 98.2 F 06/07/24 00:57 Pulse Rate 72 06/07/24 05:50 Respiratory Rate 16 06/07/24 03:38 Blood Pressure 117/78 06/07/24 05:50 Pulse Oximetry 94 06/07/24 05:50 Oxygen Delivery Me thod Room Air 06/07/24 05:50 MDM - Nausea/Vomiting/Diarrhea Medical Decision Making PICC line present in the left upper extremity. She does appear pale. She is afebrile. Her vitals are stable. However, her potassium is 2.7. Lactic acid is 3.1. CT scan shows severe hepatic steatosis, small amount of ascites. There are also findings of enteritis present. No Leukocytosis. CRP is only 8. Creatinine is 7. Lipase is normal. Bilirubin is 2.3. She has had a cholecystectomy. She has had 2L of fluid so far, with maintenence running now. KCL 40 IV and 40 liquid PO which she has held down. Her albumin is 2.2. She does appear to be malnutrition. Spoke with our hospitalist, who is concerned about this lady's next step post gastric bypass surgery, as she appears to be failing nutritionally, with an acute exacerbation of vomiting and diarrhea from enteritis. Spoke with the bariatric surgery team at [facility] in [place], as we do not have that service, and she had her surgery there. Since she is going to require admission, they would like to see her there in consultation. She'll go to the ER there. ER physician accepts in transfer. She's stable for transfer. Lab Data 06/07/24 01:18 [facility]ASH[facility] BOSS 06/07/24 01:18 W[facility]OSS Radiology Impressions Abdomen/Pelvis CT 06/07/24 02:40 IMPRESSION: 1. Severe hepatic steatosis. Small amount of ascites. 2. Findings suggesting mild enteritis. Laboratory Results WBC 3.78 10^3/uL (3.29-11.43) 06/07/24 01:18 WASHERY BOSS RBC 3.16 10^6/uL (3.85-5.65) L 06/07/24 01:18 [facility]ASH[facility] [employer]OSS Hgb 10.50 g/dL (11.27-16.99) L 06/07/24 01:18 [facility]ASH[facility] [employer] Hct 31.0 % (36-47) L 06/07/24 01:18 [facility] [employer] MCV 98.1 fl (85-98) H 06/07/24 01:18 [facility] MCH 33.2 pg (27-33) H 06/07/24 01:18 [facility] MCHC 33.9 g/dL (30-55) 06/07/24 01:18 [facility] [employer] RDW 18.5 % (12.1-15.1) H 06/07/24 01:18 [facility]ASH[facility] [employer]OSS Plt Count 146 10^3/cmm (157-399) L 06/07/24 01:18 [facility] [employer]OSS MPV 11.2 fL (7.4-10.4) H 06/07/24 01:18 [facility]OSS Neut % (Auto) 49.4 % 06/07/24 01:18 [facility]ASH[facility]OSS Lymph % (Auto) 40.5 % 06/07/24 01:18 WASHERY BOSS [place] % (Auto) 7.9 % 06/07/24 01:18 WASH[facility] [employer]OSS Eos % (Auto) 0.8 % 06/07/24 01:18 WASH[facility]OSS Baso % (Auto) 1.1 % 06/07/24 01:18 WASHERY [facility]OSS Neut # (Auto) 1.87 10^3/uL (1.8-7.7) 06/07/24 01:18 WASH[facility] BOSS Lymph # (Auto) 1.5 10^3/uL (0.8-4.8) 06/07/24 01:18 WASHERY BOSS [place] # (Auto) 0.3 10^3/uL (0.2-0.9) 06/07/24 01:18 WASH[facility] BOSS Eos # (Auto) 0.0 10^3/uL (0.0-0.8) 06/07/24 01:18 WASH[facility] BOSS Baso # (Auto) 0.0 10^3/uL (0.0-0.1) 06/07/24 01:18 WASH[facility] [employer]OSS Nucleated RBC % (auto) 0 % 06/07/24 01:18 WASH[facility] [employer]OSS Nucleated RBCs # 0.0 /100WBC 06/07/24 01:18 [facility]ASH[facility]OSS Sodium 141 mmol/L (136-145) 06/07/24 01:18 WASH[facility]OSS Potassium 2.7 mmol/L (3.5-5.1) L* 06/07/24 01:18 [facility]ASH[facility] [employer]OSS Chloride 106 mmol/L (98-107) 06/07/24 01:18 [facility]ASH[facility] [employer]OSS Carbon Dioxide 23 mmol/L (22-29) 06/07/24 01:18 [facility]ASH[facility] [employer]OSS Anion Gap 14.7 (5-19) 06/07/24 01:18 [facility]ASH[facility]OSS BUN 9 mg/dL (8-23) 06/07/24 01:18 [facility]ASH[facility]OSS Creatinine 0.7 mg/dL (0.5-0.9) 06/07/24 01:18 WASHERY [employer]OSS GFR Calculation 84.0 mL/min (90-130) L 06/07/24 01:18 WASHERY [employer]OSS Glucose 67 mg/dL (65-115) 06/07/24 01:18 WASHERY BOSS Calculated Osmolality 289 mOsm/kg (285-295) 06/07/24 01:18 WASHERY BOSS Lactic Acid 2.8 mmol/L (0.5-2.2) H 06/07/24 01:18 WASHERY BOSS Lactic Acid (Sepsis) 3.1 mmol/L (0.5-2.2) H 06/07/24 03:34 Calcium 7.9 mg/dL (8.5-10.5) L 06/07/24 01:18 WASHERY BOSS Total Bilirubin 2.3 mg/dL (0.15-1.2) H 06/07/24 01:18 WASHERY BOSS AST 71 U/L (0-32) H 06/07/24 01:18 WASHERY BOSS ALT 54 U/L (0-33) H 06/07/24 01:18 WASHERY BOSS Alkaline Phosphatase 252 U/L (35-105) H 06/07/24 01:18 WASHERY BOSS C-Reactive Protein 8.3 mg/L (0.0-4.9) H 06/07/24 01:18 WASHERY BOSS Total Protein 3.9 g/dL (6.6-8.7) L 06/07/24 01:18 WASH[facility] BOSS Albumin 2.2 g/dL (3.5-5.2) L 06/07/24 01:18 WASHERY BOSS Globulin 1.7 g/dL (1.3-4.6) 06/07/24 01:18 WASHERY BOSS Lipase 6 U/L (13-60) L 06/07/24 01:18 WASHERY BOSS All radiology interpretation(s) finalized by discharge Discharge Plan Discharge Patient Disposition: Xfer Short-Term Hosp Clinical Impression: Enteritis, Hypoalbuminemia, Hypokalemia, Acidosis, lactic, History of gastric bypass Referrals: Noel Landon MD [Primary Care Provider] - Coding Level of Care Code ED [employer] [facility] for Marcog Liliane
--- NOTE | 2024-06-07 01:17 | W.ED.NAVMDI ---
HPI - Nausea/Vomiting/Diarrhea General: Chief complaint: Nausea/Vomiting/Diarrhea Stated complaint: N/V Time Seen by Provider: 06/07/24 01:50 CDT History of Present Illness: 64-year-old female with a history of gastric bypass surgery 1 year ago. She presents with vomiting, and diarrhea, on and off for the last month or more. She has been generally weak. It has been difficult to get out of bed. She has had a couple of visits here for various complaints. She had a PICC line placed on Saturday, apparently for parenteral nutrition, but has not received any nutrition through the line yet. She is requesting admission. She denies fever. She denies blood in the stool. Related Data Home Medications Medication Instructions Recorded Confirmed diphenhydramine 25 3 tab PO BEDTIME PRN Pain 10/23/19 06/07/24 mg-acetaminophen 500 mg tablet (Tylenol PM Extra Strength) gabapentin 400 mg capsule 400 mg PO TID 10/23/19 06/07/24 levothyroxine 137 mcg capsule 137 mcg PO DAILY 10/23/19 06/07/24 tramadol 50 mg tablet 50 mg PO TID PRN Pain 10/23/19 06/07/24 multivitamin with iron 1 tab PO DAILY 04/13/24 06/07/24 omeprazole 40 mg capsule,delayed 40 mg PO DAILY 04/13/24 06/07/24 release Previous Rx's Medication Instructions Recorded apixaban 5 mg (74 tabs) tablets in See Rx Instructions PO .COMPLEX 05/25/24 a dose pack (Eliquis DVT-PE Treat #74 ea 30D Start) Allergies Allergy/AdvReac Type Severity Reaction Status Date / Time No Known Allergies Allergy Verified 04/13/24 10:22 [facility] ED [facility]: Medical History (Updated 06/07/24 @ 15:14 by Alexandro Matthew DO) Instability of joint Spondylolisthesis, lumbar region Morbid obesity with BMI of 50.0-59.9, adult Lumbar stenosis with neurogenic claudication Intervertebral disc disorder with radiculopathy of lumbosacral region Spondylolisthesis (~08/15/16) Surgical History (Updated 06/07/24 @ 15:14 by Alexandro Matthew DO) History of tonsillectomy History of knee surgery right knee laproscopic History of hysterectomy History of cervical spinal surgery (~2016) Dr. 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 by Alexandro Matthew DO) Smoking and tobacco/nicotine status: never used tobacco/nicotine Alcohol intake: never Substance/Drug Use: never Household members: spouse and family Marital status: Current occupational status: retired and disabled Physical Exam Const: GENERAL APPEARANCE: cooperative, ill appearing, frail appearing (Mildly) and other (Pale) HENMT: COMMON NORMALS: normocephalic, atraumatic and Normal external nose present HEAD & SCALP: normocephalic and atraumatic FACE & SINUS: normal facial exam and face symmetric NOSE: Normal external nose present Eye: COMMON NORMALS: Equal, round and reactive pupils present and EOMs intact bilaterally PUPIL: Yes Equal, round and reactive pupils present Neck/C-Spine: GENERAL: Yes trachea midline Chest: CHEST: Yes Symmetrical chest wall rise Resp: COMMON NORMALS: normal respiratory effort, No retractions, No use of accessory muscles and clear to auscultation bilaterally AUSCULTATION: clear to auscultation bilaterally Cardio: COMMON NORMALS: regular rate and regular rhythm RATE: regular rate RHYTHM: regular rhythm GI: COMMON NORMALS: Normal to inspection, nondistended, normoactive bowel sounds present Extremity: COMMON NORMALS: no pedal edema Neuro: RIYA COMA SCALE: document GCS findings Riya coma scale eye opening: Spontaneous Riya coma scale verbal response: Orientated Unity coma scale motor response: Obey commands Riya coma scale total score: 15 SENSORY EXAM: Yes extremities (intact) Psych: COMMON NORMALS: speech normal SPEECH: Yes normal speech Skin: COMMON NORMALS: no rashes or lesions noted GENERAL SKIN EXAM: no rashes or lesions noted Course Vital Signs: Vital signs: Vital Signs Temperature 98.2 F 06/07/24 00:57 Pulse Rate 72 06/07/24 05:50 Respiratory Rate 16 06/07/24 03:38 Blood Pressure 117/78 06/07/24 05:50 Pulse Oximetry 94 06/07/24 05:50 Oxygen Delivery Me thod Room Air 06/07/24 05:50 MDM - Nausea/Vomiting/Diarrhea Medical Decision Making PICC line present in the left upper extremity. She does appear pale. She is afebrile. Her vitals are stable. However, her potassium is 2.7. Lactic acid is 3.1. CT scan shows severe hepatic steatosis, small amount of ascites. There are also findings of enteritis present. No Leukocytosis. CRP is only 8. Creatinine is 7. Lipase is normal. Bilirubin is 2.3. She has had a cholecystectomy. She has had 2L of fluid so far, with maintenence running now. KCL 40 IV and 40 liquid PO which she has held down. Her albumin is 2.2. She does appear to be malnutrition. Spoke with our hospitalist, who is concerned about this lady's next step post gastric bypass surgery, as she appears to be failing nutritionally, with an acute exacerbation of vomiting and diarrhea from enteritis. Spoke with the bariatric surgery team at [facility] in [place], as we do not have that service, and she had her surgery there. Since she is going to require admission, they would like to see her there in consultation. She'll go to the ER there. ER physician accepts in transfer. She's stable for transfer. Lab Data 06/07/24 01:18 SPRAY GUN STRIPER 06/07/24 01:18 SPRAY GUN STRIPER Radiology Impressions Abdomen/Pelvis CT 06/07/24 02:40 IMPRESSION: 1. Severe hepatic steatosis. Small amount of ascites. 2. Findings suggesting mild enteritis. Laboratory Results WBC 3.78 10^3/uL (3.29-11.43) 06/07/24 01:18 SPRAY GUN STRIPER RBC 3.16 10^6/uL (3.85-5.65) L 06/07/24 01:18 SPRAY GUN STRIPER Hgb 10.50 g/dL (11.27-16.99) L 06/07/24 01:18 SPRAY GUN STRIP[employer] Hct 31.0 % (36-47) L 06/07/24 01:18 [employer] GUN [employer]IP[employer] MCV 98.1 fl (85-98) H 06/07/24 01:18 [employer] G[employer] MCH 33.2 pg (27-33) H 06/07/24 01:18 [employer] GUN [employer]IP[employer] MCHC 33.9 g/dL (30-55) 06/07/24 01:18 SPRAY GUN STR[employer] RDW 18.5 % (12.1-15.1) H 06/07/24 01:18 SPRAY GUN STRIPER Plt Count 146 10^3/cmm (157-399) L 06/07/24 01:18 SPRAY GUN STRIP[employer] MPV 11.2 fL (7.4-10.4) H 06/07/24 01:18 SPRAY GUN STRIP[employer] Neut % (Auto) 49.4 % 06/07/24 01:18 SPRAY GUN STRIP[employer] Lymph % (Auto) 40.5 % 06/07/24 01:18 SPRAY GUN STRIPER [place] % (Auto) 7.9 % 06/07/24 01:18 SPRAY GUN STRIPER Eos % (Auto) 0.8 % 06/07/24 01:18 SPRAY GUN STRIPER Baso % (Auto) 1.1 % 06/07/24 01:18 SPRAY GUN STRIPER Neut # (Auto) 1.87 10^3/uL (1.8-7.7) 06/07/24 01:18 SPRAY GUN STRIPER Lymph # (Auto) 1.5 10^3/uL (0.8-4.8) 06/07/24 01:18 SPRAY GUN STRIP[employer] [place] # (Auto) 0.3 10^3/uL (0.2-0.9) 06/07/24 01:18 SPRAY GUN STRIPER Eos # (Auto) 0.0 10^3/uL (0.0-0.8) 06/07/24 01:18 SPRAY GUN STRIPER Baso # (Auto) 0.0 10^3/uL (0.0-0.1) 06/07/24 01:18 SPRAY GUN STRIP[employer] Nucleated RBC % (auto) 0 % 06/07/24 01:18 SPRAY GUN STRIP[employer] Nucleated RBCs # 0.0 /100WBC 06/07/24 01:18 SPRAY GUN STRIP[employer] Sodium 141 mmol/L (136-145) 06/07/24 01:18 SPRAY GUN STRIP[employer] Potassium 2.7 mmol/L (3.5-5.1) L* 06/07/24 01:18 SPRAY GUN STRIPER Chloride 106 mmol/L (98-107) 06/07/24 01:18 SPRAY GUN STRIPER Carbon Dioxide 23 mmol/L (22-29) 06/07/24 01:18 SPRAY GUN STRIPER Anion Gap 14.7 (5-19) 06/07/24 01:18 SPRAY GUN STRIPER BUN 9 mg/dL (8-23) 06/07/24 01:18 SPRAY GUN STRIPER Creatinine 0.7 mg/dL (0.5-0.9) 06/07/24 01:18 SPRAY GUN STRIPER GFR Calculation 84.0 mL/min (90-130) L 06/07/24 01:18 SPRAY GUN STRIPER Glucose 67 mg/dL (65-115) 06/07/24 01:18 SPRAY GUN STRIPER Calculated Osmolality 289 mOsm/kg (285-295) 06/07/24 01:18 SPRAY GUN STRIPER Lactic Acid 2.8 mmol/L (0.5-2.2) H 06/07/24 01:18 SPRAY GUN STRIPER Lactic Acid (Sepsis) 3.1 mmol/L (0.5-2.2) H 06/07/24 03:34 Calcium 7.9 mg/dL (8.5-10.5) L 06/07/24 01:18 SPRAY GUN STRIPER Total Bilirubin 2.3 mg/dL (0.15-1.2) H 06/07/24 01:18 SPRAY GUN STRIPER AST 71 U/L (0-32) H 06/07/24 01:18 SPRAY GUN STRIPER ALT 54 U/L (0-33) H 06/07/24 01:18 SPRAY GUN STRIPER Alkaline Phosphatase 252 U/L (35-105) H 06/07/24 01:18 SPRAY GUN STRIPER C-Reactive Protein 8.3 mg/L (0.0-4.9) H 06/07/24 01:18 SPRAY GUN STRIPER Total Protein 3.9 g/dL (6.6-8.7) L 06/07/24 01:18 SPRAY GUN STRIPER Albumin 2.2 g/dL (3.5-5.2) L 06/07/24 01:18 SPRAY GUN STRIPER Globulin 1.7 g/dL (1.3-4.6) 06/07/24 01:18 SPRAY GUN STRIPER Lipase 6 U/L (13-60) L 06/07/24 01:18 SPRAY GUN STRIPER All radiology interpretation(s) finalized by discharge Discharge Plan Discharge Patient Disposition: Xfer Short-Term Hosp Clinical Impression: Enteritis, Hypoalbuminemia, Hypokalemia, Acidosis, lactic, History of gastric bypass Referrals: Noel Landon MD [Primary Care Provider] - Coding Level of Care Code ED Cutter Operator Brick for Marcog Liliane
[2024-06-07 01:29] LABS: Basophils % 1.1 %; Eosinophils % 0.8 %; Lymphocytes # 1.5 10^3/uL (0.8-4.8); Lymphocytes % 40.5 %; Mean Corpuscular HGB Conc 33.9 g/dL (30-55); Mean Corpuscular Hemoglobin 33.2 pg (27-33); Mean Corpuscular Volume 98.1 fl (85-98); Mean Platelet Volume 11.2 fL (7.4-10.4); Monocytes # 0.3 10^3/uL (0.2-0.9); Monocytes % 7.9 %; Neutrophils # 1.87 10^3/uL (1.8-7.7); Neutrophils % 49.4 %; Nucleated Red Blood Cells % 0 %; Platelet Count 146 10^3/cmm (157-399); Red Blood Count 3.16 10^6/uL (3.85-5.65); Red Cell Distribution Width 18.5 % (12.1-15.1); White Blood Count 3.78 10^3/uL (3.29-11.43)
[2024-06-07 01:43] LABS: Alanine Aminotransferase 54 U/L (0-33); Albumin Level 2.2 g/dL (3.5-5.2); Alkaline Phosphatase 252 U/L (35-105); Anion Gap 14.7 (5-19); Aspartate Amino Transferase 71 U/L (0-32); Blood Urea Nitrogen 9 mg/dL (8-23); C Reactive Protein 8.3 mg/L (0.0-4.9); Calcium 7.9 mg/dL (8.5-10.5); Carbon Dioxide 23 mmol/L (22-29); Chloride 106 mmol/L (98-107); Creatinine Clr Calc Pharmacy 78.5369; Globulin 1.7 g/dL (1.3-4.6); Glucose 67 mg/dL (65-115); Lactic Sepsis W/Reflex 2.8 mmol/L (0.5-2.2); Lipase 6 U/L (13-60); Osmolality Calculated 289 mOsm/kg (285-295); Sodium 141 mmol/L (136-145); Total Bilirubin 2.3 mg/dL (0.15-1.2); Total Protein 3.9 g/dL (6.6-8.7)
[2024-06-07 01:50] VITALS: BP 134/74; PULSE 67; RESP 16; O2SAT 100
[2024-06-07 01:51] LABS: Potassium 2.7 mmol/L (3.5-5.1)
--- NOTE | 2024-06-07 02:40 | CTR_ITS ---
PROCEDURE INFORMATION: Exam: CT Abdomen And Pelvis With Contrast Exam date and time: 06/07/2024 4:00 AM Age: 64 years old Clinical indication: Pain and abnormal findings; Abnormal lab test; Elevated liver enzymes; Abdominal pain; Generalized; Prior surgery; Surgery date: 6+ months; Surgery type: Gastric bypass. Gb. Hysterectomy. Patient HX: C/O abd pain with vomiting and diarrhea. Elevated lactic acid and lfts. ; Additional info: Abd pain, vomiting, elevated lactic acid TECHNIQUE: Imaging protocol: Computed tomography of the abdomen and pelvis with contrast. Radiation optimization: All CT scans at this facility use at least one of these dose optimization techniques: automated exposure control; mA and/or kV adjustment per patient size (includes targeted exams where dose is matched to clinical indication); or iterative reconstruction. Contrast material: OMNI 350; Contrast volume: 100 ml; Contrast route: INTRAVENOUS (IV); COMPARISON: CT abdomen pelvis w con* [id number] 05/24/2024 9:51 PM RADIATION DOSE METRICS: Total DLP (mGy-cm): 924.19 FINDINGS: Pleural spaces: Small left pleural effusion similar to prior exam. Liver: Severe hepatic steatosis noted. Gallbladder and biliary ducts: There has been cholecystectomy. Pancreas: Normal. No ductal dilation. Spleen: Normal. No splenomegaly. Adrenal glands: Normal. No mass. Kidneys and ureters: Normal. No hydronephrosis. Stomach and bowel: Mild thickening of the gastroenteric anastomosis is unchanged. There are mildly prominent small bowel loops throughout the abdomen with air-fluid levels suggesting mild enteritis. Appendix: No evidence of appendicitis. Intraperitoneal space: Small amount of ascites noted. Vasculature: Unremarkable. No abdominal aortic aneurysm. Lymph nodes: Unremarkable. No enlarged lymph nodes. Urinary bladder: Unremarkable as visualized. Reproductive: There has been hysterectomy. Bones/joints: Unremarkable. No acute fracture. Soft tissues: Unremarkable. Other findings: There has been bariatric surgery. CT/CT abdomen pelvis w con* [id number] IMPRESSION: 1. Severe hepatic steatosis. Small amount of ascites. 2. Findings suggesting mild enteritis.
[2024-06-07] MEDS: sodium chloride 0.9% 1,000 ML 999 ML IV (02:47)
[2024-06-07] MEDS: potassium chloride oral liq 20 mEq/15 mL UDC 40 MEQ PO (02:47)
[2024-06-07] MEDS: lidocaine 1% 5 ML in potassium chloride premix 100 ML 26.25 ML IV (02:48)
[2024-06-07] MEDS: iohexol 350 mg/mL 500 mL Btl (per mL) IV (03:04)
[2024-06-07 03:08] LABS: Reflex Lactate Order REFLEX LACTIC ORDERD
[2024-06-07 03:38] VITALS: BP 122/96; PULSE 71; RESP 16; O2SAT 96
[2024-06-07 03:59] LABS: Lactic Acid level (Lactate) 3.1 mmol/L (0.5-2.2)
[2024-06-07] MEDS: sodium chloride 0.9% 1,000 ML 150 ML IV (05:48)
[2024-06-07 05:50] VITALS: BP 117/78; PULSE 72; O2SAT 94
--- NOTE | 2024-06-07 07:22 | PC.NURSE ---
took over pt care from ELIE Smith at 0655.
--- NOTE | 2024-06-07 07:30 | PC.NURSE ---
ELIE Smith explained to this RN during shift change that pt continues to refuse straight cath. pt is unable to give urine sample d/t her having a bowel movement at the same time she urinates.
--- NOTE | 2024-06-07 07:31 | PC.PHAR ---
Pt states has not taken any of her medications since Saturday06/03/24
== END 2024-06-07 08:02 | disposition short-term general hospital (02) ==
PROVIDERS: Emergency Provider Emergency Medicine; PCP Family Medicine
DX: K52.9 Noninfective gastroenteritis and colitis, unspecified (principal); E27.40 Unspecified adrenocortical insufficiency; E87.6 Hypokalemia; E87.20 Acidosis, unspecified; Z98.890 Other specified postprocedural states
CPT/HCPCS: 74177; 80053; 83605; 83690; 85025; 86140; 96361; 96374; 99285; J3480; J7030

== ENCOUNTER 2024-07-24 01:17 | Inpatient (IN) | payer MEDICARE, SELFPAY ==
[2024-07-24] VITALS (70 sets, daily range): BP systolic 112–161; BP diastolic 61–97; PULSE 75–150; RESP 16–112; TEMP 36.6–37.7; O2SAT 94–100; BMI 32.3
--- NOTE | 2024-07-24 01:33 | ED_ITS ---
HPI - Back Pain/Injury 2 General: Chief Complaint: Back Pain/Injury Stated Complaint: Back Pain Time Seen by Provider: 07/24/24 01:19 History of Present Illness: 64-year-old female who presents to the mergency room with weakness and back pain. Once. They report she is receiving TPN for failure to thrive. They say her sent her today because she is getting worse. Apparently she has a appointment in [place] tomorrow with someone. She will not give me much history. Related Data Home Medications Medication Instructions Recorded Confirmed diphenhydramine 25 3 tab PO BEDTIME PRN Pain 10/23/19 06/07/24 mg-acetaminophen 500 mg tablet (Tylenol PM Extra Strength) gabapentin 400 mg capsule 400 mg PO TID 10/23/19 06/07/24 levothyroxine 137 mcg capsule 137 mcg PO DAILY 10/23/19 06/07/24 tramadol 50 mg tablet 50 mg PO TID PRN Pain 10/23/19 06/07/24 multivitamin with iron 1 tab PO DAILY 04/13/24 06/07/24 omeprazole 40 mg capsule,delayed 40 mg PO DAILY 04/13/24 06/07/24 release Previous Rx's Medication Instructions Recorded apixaban 5 mg (74 tabs) tablets in See Rx Instructions PO .COMPLEX 05/25/24 a dose pack (EliquSweet [employer] DVT-PE Treat #74 ea 30D Start) Allergies Allergy/AdvReac Type Severity Reaction Status Date / Time No Known Allergies Allergy Verified 04/13/24 10:22 Review of Systems 2 Narrative: Constitutional symptoms: Negative except as documented in HPI. Skin symptoms: Negative except as documented in HPI. Eye symptoms: Negative except as documented in HPI. ENMT symptoms: Negative except as documented in HPI. Respiratory symptoms: Negative except as documented in HPI. Cardiovascular symptoms: Negative except as documented in HPI. Gastrointestinal symptoms: Negative except as documented in HPI. Genitourinary symptoms: Negative except as documented in HPI. Musculoskeletal symptoms: Negative except as documented in HPI. Neurologic symptoms: Negative except as documented in HPI. Psychiatric symptoms: Negative except as documented in HPI. Endocrine symptoms: Negative except as documented in HPI. PFSH ED 2 PFSH: Medical History (Updated 07/24/24 @ 03:55 by Abimbola Rojas MD) Instability of joint Spondylolisthesis, lumbar region Morbid obesity with BMI of 50.0-59.9, adult Lumbar stenosis with neurogenic claudication Intervertebral disc disorder with radiculopathy of lumbosacral region Spondylolisthesis (~08/15/16) Surgical History (Updated 06/15/24 @ 00:00 by BLANCHE Mcgill) History of tonsillectomy History of knee surgery right knee laproscopic History of hysterectomy History of cervical spinal surgery (~2016) Dr. 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 Skin: Warm, dry. Head: Normocephalic, atraumatic. Neck: Supple, trachea midline. Eye: Extraocular movements are intact. Ears, nose, mouth and throat: Tacky oral mucosa Cardiovascular: Regular, Normal peripheral perfusion. Respiratory: Lungs are clear to auscultation, respirations are non-labored, breath sounds are equal, Symmetrical chest wall expansion. Gastrointestinal: Soft, Nontender, Non distended Musculoskeletal: Normal ROM, no deformity. Patient has diffuse tenderness over entire back. Nothing focal. Neurological: Alert and oriented, No focal neurological deficit observed. Patient will not provide much history. Psychiatric: Not providing much history. Course 2 Vital Signs: Vital signs: Vital Signs Temperature 97.9 F 07/24/24 01:24 Pulse Rate 86 07/24/24 01:31 Respiratory Rate 16 07/24/24 01:31 Blood Pressure 144/74 07/24/24 01:31 Pulse Oximetry 99 07/24/24 01:31 Oxygen Delivery Me thod Room Air 07/24/24 01:31 MDM - Back Pain/Injury Medical Decision Making Medical decision making: Differential diagnosis for patient presenting with generalized weakness including but not limited to and based on the above HPI, review of systems and physical exam: Sepsis. Dehydration. Renal failure. Electrolyte abnormalities. Anemia. Congestive heart failure. Hypotension. Coronary syndrome. Hepatitis. Cirrhosis. Infections such as pneumonia, urinary tract infection, [place] illness, Cellulitis, Viral infections including influenza and Covid-19. Workup: labwork and lab/exam driven imaging ordered to evaluate, rule in and rule out above pathologies. Lab Review: Laboratory results were reviewed and interpreted by myself the emergency room physician. Lab work is actually fairly unremarkable. No leukocytosis. Stable anemia. No renal failure. Urinalysis is negative for infection. She does appear somewhat dehydrated. I reviewed the patient's medical record. Assessment and plan: Chronic back pain Weakness Dehydration ?IV Dilaudid and Zofran. IV fluids. - Discharged home - Discussed plan with patient. Answered any questions. - Evaluation and treatment of this problem were appropriate in the emergency setting. Labs 07/24/24 02:09 07/24/24 02:09 Laboratory Results WBC 10.75 10^3/uL (3.29-11.43) 07/24/24 02:09 RBC 3.17 10^6/uL (3.85-5.65) L 07/24/24 02:09 Hgb 9.70 g/dL (11.27-16.99) L 07/24/24 02:09 Hct 28.9 % (36-47) L 07/24/24 02:09 MCV 91.2 fl (85-98) 07/24/24 02:09 MCH 30.6 pg (27-33) 07/24/24 02:09 MCHC 33.6 g/dL (30-55) 07/24/24 02:09 RDW 12.3 % (12.1-15.1) 07/24/24 02:09 Plt Count 180 10^3/cmm (157-399) 07/24/24 02:09 MPV 11.8 fL (7.4-10.4) H 07/24/24 02:09 Neut % (Auto) 81.6 % 07/24/24 02:09 Lymph % (Auto) 7.6 % 07/24/24 02:09 [place] % (Auto) 9.7 % 07/24/24 02:09 Eos % (Auto) 0.0 % 07/24/24 02:09 Baso % (Auto) 0.2 % 07/24/24 02:09 Neut # (Auto) 8.77 10^3/uL (1.8-7.7) H 07/24/24 02:09 Lymph # (Auto) 0.8 10^3/uL (0.8-4.8) 07/24/24 02:09 [place] # (Auto) 1.0 10^3/uL (0.2-0.9) H 07/24/24 02:09 Eos # (Auto) 0.0 10^3/uL (0.0-0.8) 07/24/24 02:09 Baso # (Auto) 0.0 10^3/uL (0.0-0.1) 07/24/24 02:09 Nucleated RBC % (auto) 0 % 07/24/24 02:09 Nucleated RBCs # 0.0 /100WBC 07/24/24 02:09 Sodium 130 mmol/L (136-145) L 07/24/24 02:09 Potassium 3.7 mmol/L (3.5-5.1) 07/24/24 02:09 Chloride 94 mmol/L (98-107) L 07/24/24 02:09 Carbon Dioxide 23 mmol/L (22-29) 07/24/24 02:09 Anion Gap 16.7 (5-19) 07/24/24 02:09 BUN 23 mg/dL (8-23) 07/24/24 02:09 Creatinine 0.6 mg/dL (0.5-0.9) 07/24/24 02:09 GFR Calculation 100.3 mL/min (90-130) 07/24/24 02:09 Glucose 173 mg/dL (65-115) H 07/24/24 02:09 Calculated Osmolality 278 mOsm/kg (285-295) L 07/24/24 02:09 Lactic Acid 2.3 mmol/L (0.5-2.2) H 07/24/24 02:09 Calcium 9.8 mg/dL (8.5-10.5) 07/24/24 02:09 Total Bilirubin 0.8 mg/dL (0.15-1.2) 07/24/24 02:09 AST 33 U/L (0-32) H 07/24/24 02:09 ALT 28 U/L (0-33) 07/24/24 02:09 Alkaline Phosphatase 123 U/L (35-105) H 07/24/24 02:09 Total Protein 5.7 g/dL (6.6-8.7) L 07/24/24 02:09 Albumin 3.0 g/dL (3.5-5.2) L 07/24/24 02:09 Globulin 2.7 g/dL (1.3-4.6) 07/24/24 02:09 Urine Color Yellow (Yellow) 07/24/24 02:45 Urine Appearance Clear (CLEAR) 07/24/24 02:45 Urine pH 5.5 (5-7) 07/24/24 02:45 Ur Specific [place] 1.018 (1.005-1.030) 07/24/24 02:45 Urine Protein Trace (Negative) A 07/24/24 02:45 Urine Glucose (UA) Negative (Normal) 07/24/24 02:45 Urine Ketones Negative (Negative) 07/24/24 02:45 Urine Blood Negative (Negative) 07/24/24 02:45 Urine Nitrate Negative (Negative) 07/24/24 02:45 Urine Bilirubin Negative (Negative) 07/24/24 02:45 Urine Urobilinogen 1.0 mg/dL (Negative) 07/24/24 02:45 Ur Leukocyte Esterase Negative (Negative) 07/24/24 02:45 Urine RBC 6-10 /hpf (0-2) 07/24/24 02:45 Urine WBC 0-5 /hpf (0-5) 07/24/24 02:45 Ur Squamous Epith Cells 0-5 /hpf (0-5) 07/24/24 02:45 Amorphous Sediment Not Reportable 07/24/24 02:45 Urine Bacteria None seen /hpf (NONE) 07/24/24 02:45 Hyaline Casts 2.05 /lpf 07/24/24 02:45 No radiology studies performed this visit Discharge Plan Discharge Patient Disposition: Home Clinical Impression: Chronic back pain, Dehydration, Weakness Condition: Stable Prescriptions: No Action levothyroxine 137 mcg capsule 137 mcg PO DAILY gabapentin 400 mg capsule 400 mg PO TID tramadol 50 mg tablet 50 mg PO TID PRN (Reason: Pain) diphenhydramine-acetaminophen [Tylenol PM Extra Strength] 25-500 mg tablet 3 tab PO BEDTIME PRN (Reason: Pain) omeprazole 40 mg capsule,delayed release(DR/EC) 40 mg PO DAILY multivitamin with iron Tablet 1 tab PO DAILY Eliquis DVT-PE Treat 30D Start 5 mg (74 tabs) tablets,dose pack See Rx Instructions .ROUTE .COMPLEX Qty: 74 0RF Rx Instructions: Take orally as directed per package instructions. Discharge Orders: Discharge ED (Routine); Ordered 07/24/24 Ordered By: Abimbola Rojas Referrals: Noel Landon MD [Primary Care Provider] - Discharge Diet: As Directed Discharge Activity: Increase activity as tolerated Patient Instructions: Opioid Safety, Pain Management Activity Restrictions/Additional Instructions: I would call your primary provider today and discussed with them that you are having worsening issues with her mobility. Discussed being placed in rehab again. Or snf. Thank you for choosing [facility] for your healthcare needs today. Please realize this is an emergency room and that we are providing you with a medical screening exam and this may not be complete and all inclusive of all the testing and or work up that you may need to determine your ailment or severity of your illness. You have been screened and evaluated and felt safe for discharge. Health conditions do change or evolve sometimes and as such it is important that you follow up with your Primary Doctor to be re checked, 3-5 days is a general good time frame for follow up. You are always welcome to return to the ED for re assessment if your symptoms are worsening or you have new concerns Coding Level of Care Code ED Collar Padder Blindstitch for Harshal Momin
[2024-07-24 02:31] LABS: Basophils % 0.2 %; Hematocrit 28.9 % (36-47); Lymphocytes # 0.8 10^3/uL (0.8-4.8); Lymphocytes % 7.6 %; Mean Corpuscular HGB Conc 33.6 g/dL (30-55); Mean Corpuscular Hemoglobin 30.6 pg (27-33); Mean Corpuscular Volume 91.2 fl (85-98); Mean Platelet Volume 11.8 fL (7.4-10.4); Monocytes % 9.7 %; Neutrophils # 8.77 10^3/uL (1.8-7.7); Neutrophils % 81.6 %; Nucleated Red Blood Cells % 0 %; Platelet Count 180 10^3/cmm (157-399); Red Blood Count 3.17 10^6/uL (3.85-5.65); Red Cell Distribution Width 12.3 % (12.1-15.1); White Blood Count 10.75 10^3/uL (3.29-11.43)
[2024-07-24 02:54] LABS: Alanine Aminotransferase 28 U/L (0-33); Alkaline Phosphatase 123 U/L (35-105); Anion Gap 16.7 (5-19); Aspartate Amino Transferase 33 U/L (0-32); Blood Urea Nitrogen 23 mg/dL (8-23); Calcium 9.8 mg/dL (8.5-10.5); Carbon Dioxide 23 mmol/L (22-29); Chloride 94 mmol/L (98-107); Creatinine Clr Calc Pharmacy 79.5405; Globulin 2.7 g/dL (1.3-4.6); Glomerular Filtration Rate 100.3 mL/min (90-130); Glucose 173 mg/dL (65-115); Lactic Sepsis W/Reflex 2.3 mmol/L (0.5-2.2); Osmolality Calculated 278 mOsm/kg (285-295); Potassium 3.7 mmol/L (3.5-5.1); Sodium 130 mmol/L (136-145); Total Bilirubin 0.8 mg/dL (0.15-1.2); Total Protein 5.7 g/dL (6.6-8.7)
[2024-07-24 03:26] LABS: Bilirubin Urine Negative (Negative); Blood Urine Negative (Negative); Glucose Urine UA Negative (Normal); Ketones Urine Negative (Negative); Leukocyte Esterase Urine Negative (Negative); Nitrate Urine Negative (Negative); Protein Urine Trace (Negative); Specific Gravity, Urine 1.018 (1.005-1.030); Urine Appearance Clear (CLEAR); Urine Color Yellow (Yellow); pH Urine 5.5 (5-7)
[2024-07-24 03:31] LABS: Bacteria Urine None Seen /hpf; Hyaline Casts Urine 2.05 /lpf; Squamous Epithelial Cell Urine 0-5 /hpf (0-5); WBC Urine 0-5 /hpf (0-5)
[2024-07-24 03:39] LABS: UA Slide Review UA Slide Review Perf
[2024-07-24] MEDS: HYDROmorphone 1 mg/mL INJ 1 mL IVP (04:11)
[2024-07-24] MEDS: ondansetron 2 mg/ML SDV 2 mL 4 MG IVP (04:11)
[2024-07-24] MEDS: sodium chloride 0.9% 1,000 ML 999 ML IV (04:12)
[2024-07-24 04:15] LABS: Reflex Lactate Order REFLEX LACTIC ORDERD
--- NOTE | 2024-07-24 06:59 | CT_ITS ---
WS: [id number] CT LUMBAR SPINE, noncontrast. HISTORY: trauma pain TECHNIQUE: Contiguous 2.0 mm axial imaging are performed. Sagittal and coronal reformats are submitte d and reviewed. All CT scans at [facility] use at least one of these dose optimization techni ques: automated exposure control; mA and/or kV adjustment per patient size (includes targeted exams w here dose is matched to clinical indication); or iterative reconstruction. IV contrast: None DLP: 922.08 mGy.cm COMPARISON: 12/02/2019, 06/07/2024 L4 anterolisthesis by 5.6 mm. No acute lumbar spine fracture. Degenerative disc disease and vacuum di sc phenomenon at L2-3 and L4-5. Severe disc space narrowing at L5-S1. Marked facet joint arthropathy bilateral. L1-2: Annular disc bulging with facet arthritis. L2-3: Moderate annular disc bulging with osteophytic ridging and facet arthritis. Moderate central, b ilateral subarticular recess and mild foraminal stenosis. L3-4: Diffuse annular disc bulging with bilateral proximal foraminal disc protrusions, ligamentum fla vum and facet arthritis. Severe central, bilateral subarticular recess and moderate foraminal stenosi s. L4-5: Marked annular disc bulging with severe facet joint arthropathy. Osteophyte and facet arthropat hy encroach upon the central canal and subarticular recesses. Severe central, bilateral subarticular recess and foraminal stenosis. L5-S1: Diffuse osteophytic ridging. No significant encroachment upon the S1 nerve roots. Mild central with moderate subarticular recess and mild foraminal stenosis. Paravertebral soft tissues are negative for acute process. Mild atherosclerosis aorta. CT/CT lumbar spine wo con* [id number] IMPRESSION: 1. No acute fractures identified. 2. Grade 1 anterolisthesis of L4, unchanged. 3. Mild progression of stenosis and facet joint arthropathy since 2019. 4. L4-5: Severe central, bilateral subarticular recess and foraminal stenosis. Severe facet joint arthropathy. 5. L5-S1: Mild central with moderate bilateral subarticular recess and mild fo raminal stenosis. 6. L2-3: Moderate central, bilateral subarticular recess and mild foraminal st enosis. 7. L3-4: Severe central, bilateral subarticular recess and moderate foraminal stenosis.
--- NOTE | 2024-07-24 07:33 | ECG_ITS ---
[facility] Test Date: 2024-07-24 Pat Name: Suma Rush Department: Room: Gender: Female Administrative Sales Assistant: : 1960 Requested By: Edward Nicole Order Number: [id number] Lisa MD: Derrick Ward M.D. Measurements Intervals [place] Rate: 146 P: 0 ID: 0 QRS: -50 QRSD: 119 T: 27 QT: 303 QTc: 473 Interpretive Statements ATRIAL FIBRILLATION WITH RAPID VENTRICULAR RESPONSE PATTERN CONSISTENT WITH PULMONARY DISEASE INCOMPLETE RIGHT BUNDLE BRANCH BLOCK [90+ ms QRS DURATION, TERMINAL R IN V1/V2, 40+ ms S IN I/aVL/V4/V5/V6] LEFT ANTERIOR FASCICULAR BLOCK [QRS AXIS <= -45, QR IN I, RS IN II] MODERATE ST DEPRESSION [0.05+ mV ST DEPRESSION] No previous ECG available for comparison Electronically Signed On 07-24-2024 19:45:07 MAINTENANCE GROUNDSKEEPER by Derrick Ward M.D. [id number]
[2024-07-24 08:09] LABS: Thyroid Stimulating Hormone 2.07 uIU/mL (0.27-4.20)
[2024-07-24] MEDS: dilTIAZem 100 MG in sodium chloride 0.9% (add-van) 100 ML IV (08:49)
[2024-07-24] MEDS: dilTIAZem 5 mg/mL SDV 5 mL 10 MG IVP (08:49)
[2024-07-24 09:01] LABS: Troponin(5th) Baseline 92 ng/L (0-10)
[2024-07-24 09:03] LABS: Lactic Acid level (Lactate) 1.7 mmol/L (0.5-2.2)
[2024-07-24] MEDS: HYDROmorphone 1 mg/mL INJ 1 mL 0.5 MG IVP (09:21)
--- NOTE | 2024-07-24 09:33 | ECG_ITS ---
[facility]: 2024-07-24 Pat Name: Suma Rush Department: Room: Gender: Female Teller Supervisor: : 1960 Requested By: Edward Nicole Order Number: [id number] Lisa MD: Derrick Ward M.D. Measurements Intervals [place] Rate: 120 P: 0 [place]: 0 QRS: -47 QRSD: 134 T: 12 QT: 322 QTc: 455 Interpretive Statements ATRIAL FIBRILLATION WITH RAPID VENTRICULAR RESPONSE RIGHT BUNDLE BRANCH BLOCK [120+ ms QRS DURATION, UPRIGHT V1, 40+ ms S IN I/aVL/V4/V5/V6] LEFT ANTERIOR FASCICULAR BLOCK [QRS AXIS <= -45, QR IN I, RS IN II] Compared to ECG 07/24/2024 07:37:53 Right bundle-branch block now present Incomplete right bundle-branch block no longer present ST (T wave) deviation no longer present Electronically Signed On 07-24-2024 19:54:02 BUCKLE INSPECTOR by Derrick Wadr M.D. [email or web address]
[2024-07-24 10:56] LABS: Troponin 5 2HR 93.79 ng/L (0-10); Troponin 5 2HR Delta 1.79 ABS# (0-10)
--- NOTE | 2024-07-24 12:39 | USCV_ITS ---
Suma Rush Age: 64 Gender: F : 1960 Exam Date: 07/24/2024 13:27 Ordering Phys: Jermaine Rodriguez MD Technologist: Nikos Pierson Exam Location: [facility] Indication: AFIB BP: 122 / 73 HR: 80 Rhythm: Sinus Technical Quality: Adequate MEASUREMENTS (Male / Female) Normal Values 2D ECHO LV Diastolic Diameter PLAX 4.2 cm 4.2 - 5.9 / 3.9 - 5.3 cm IVS Diastolic Thickness 1.5 cm 0.6 - 1.0 / 0.6 - 0.9 cm IVS Systolic Thickness 1.9 cm LVPW Diastolic Thickness 1.8 cm 0.6 - 1.0 / 0.6 - 0.9 cm LVPW Systolic Thickness 2.3 cm LVOT Diameter 2.1 cm LV Ejection Fraction 2D Teich 61.9 % LV Ejection Fraction MOD 4C 66.7 % LV Ejection Fraction MOD 2C 69.4 % LV Ejection Fraction 2C AL 69.0 % LA Diameter 3.5 cm RA Systolic Volume 4C AL 45.8 ml RA Systolic Volume 4C MOD 44.4 ml LA Sys Volume AL 65.3 cm cubed LA Sys Volume Index AL 31.3 cm cubed/m squared Aorta at Sinotubular Diameter 2.3 cm IVC Diameter 2.0 cm M-MODE LA Ao Ratio MM 1.3 AV Cusp Separation MM 1.5 cm DOPPLER AV Peak Velocity 266.0 cm/s LVOT Peak Velocity 207.0 cm/s AV Area Cont Eq vti 2.7 cm squared AV Area Cont Eq pk 2.7 cm squared MV Peak Velocity 141.0 cm/s MV Area PHT 3.5 cm squared Mitral E to A Ratio 1.8 TV Peak Velocity 357.0 cm/s TR Peak Velocity 424.0 cm/s TR Peak Gradient 71.9 mmHg TR Mean Velocity 300.0 cm/s TR Mean Gradient 40.8 mmHg TR Velocity Time Integral 100.3 cm PV Peak Velocity 110.0 cm/s RV Ejection Time 0.3 s FINDINGS Left Ventricle Left ventricle is normal in size. LV systolic function is normal with EF of 60 to 65%. No regional wall motion abnormalities are seen. Right Ventricle Normal in size and function Right Atrium Normal in size Left Atrium Dilated Mitral Valve Moderate mitral annular calcification. No significant stenosis. Mild mitral regurgitation. Aortic Valve Aortic valve is thickened. Mild aortic stenosis with mean gradient of 14 mmHg. Tricuspid Valve Mild tricuspid regurgitation. Insufficient TRjet to calculate RVSP Pulmonic Valve Not well visualized Pericardium Normal Aorta Normal in size IVC Appears dilated CONCLUSIONS LV systolic function is normal with EF of 60 to 65%. No left atrial dilation. Mild mitral regurgitation. Mild mild aortic stenosis Mild tricuspid regurgitation No comparison studies are available. Francis Pierre MD (Electronically Signed) Final Date: 25 July 2024 10:48 S
--- NOTE | 2024-07-24 12:57 | MRR_ITS ---
PROCEDURE INFORMATION: Exam: MR Lumbar Spine Without Contrast Exam date and time: 07/24/2024 4:50 PM Age: 64 years old Clinical indication: Abnormal findings; Abnormal xray or scan of thoracolumbar spine; Additional info: Lumbar stenosis TECHNIQUE: Imaging protocol: Magnetic resonance imaging of the lumbar spine without contrast. COMPARISON: CT lumbar spine wo con* [id number] 07/24/2024 7:22 AM FINDINGS: Bones/joints: There are degenerative changes throughout the visualized spine including marginal osteophyte formations, endplate degenerative changes, and facet arthropathy. Multilevel disc space narrowing. Grade 1 degenerative anterolisthesis of L4 on L5 appears similar to the prior CT scan. Spinal cord: The conus ends normally at the T12-L1 level. No abnormal signal is seen within the conus or the intrathecal nerve roots. L1-L2: No significant disc bulge or herniation. No severe spinal canal stenosis. No significant neural foraminal narrowing. L2-L3: There is a broad-based disc osteophyte complex which results in moderate severe canal stenosis. Cauda equina are crowded and/or compressed. L3-L4: There is a broad-based disc osteophyte complex resulting in moderate to severe canal stenosis.Cauda equina are crowded and/or compressed. Mild narrowing of the right neural foramen. L4-L5: There is a broad-based disc osteophyte complex with severe canal stenosis and compression of the cauda equina. Moderate to severe narrowing of the left neural foramen and moderate narrowing of the right neural foramen. L5-S1: Severe disc desiccation and narrowing. Canal and neural foramina are within normal limits in caliber. Soft tissues: There is edema in the subcutaneous soft tissues of the lower thoracic and lumbar spine. Small synovial cyst posterior to the lower lumbar facet joints. MR/MR lumbar spine wo con* [id number] IMPRESSION: Multilevel, multifactorial degenerative changes are present throughout the lumbar spine with varying degrees of canal and neural foramina stenosis as described in detail above. The canal stenosis is severe at the L4-L5 level with compression of the cauda equina. Canal stenosis is moderate to severe at the L2-L3 and L3-L4 levels where the cauda equina are crowded and/or compressed.
--- NOTE | 2024-07-24 13:03 | P.CONIM_ITS ---
Providers/Reason For Consult 2 Consulting Physician/Specialty*: Hospitalist Reason for Consult*: Back pain and leg pain. Attending Physician: Jermaine Rodriguez MD Primary Care Provider: Noel Landon MD History of Present Illness History of Present Illness Suam Rush is a 64 year old female long history of low back pain. She is seeing Dr. Kevan quesada in 2019. She had a L4-5 spinal listhesis. Which is unstable. She is having severe radicular pain to her legs. She is able to move her legs. In the ER she is having issues with her heart and was admitted to the hospital. Recently she was up in [place] which was to have a procedure done on her back but ended up having a what sounds a EGD instead. Review of Systems 2 Const: Reports: other (generalized weakness); Denies: fever(s), chills, body aches, fatigue or malaise Card: Denies: chest pain, palpitations, lightheadedness, syncope or pre- syncope Resp: Denies: dyspnea GI: Denies: abdominal pain or vomiting : Denies: flank pain or dysuria Musc: Reports: joint pain (R knee); Denies: neck pain, back pain, extremity pain or extremity swelling Neuro: Denies: numbness in extremities or sensory changes Medications/Allergies Home Medications Medication Instructions Recorded Confirmed Last Taken Type diphenhydramine 25 3 tab PO BEDTIME PRN Pain 10/23/19 07/24/24 Unknown History mg-acetaminophen 500 mg tablet (Tylenol PM Extra Strength) gabapentin 400 mg capsule 400 mg PO TID 10/23/19 07/24/24 06/03/24 History levothyroxine 137 mcg capsule 137 mcg PO DAILY 10/23/19 07/24/24 06/03/24 History tramadol 50 mg tablet 50 mg PO TID PRN Pain 10/23/19 07/24/24 06/03/24 History multivitamin with iron 1 tab PO DAILY 04/13/24 07/24/24 06/03/24 History omeprazole 40 mg capsule,delayed 40 mg PO DAILY 04/13/24 07/24/24 06/03/24 History release apixaban 2.5 mg tablet (Eliquis) 2.5 mg PO BID 07/24/24 07/24/24 Unknown History docusate sodium 250 mg capsule 250 mg PO BID 07/24/24 07/24/24 Unknown History (Stool Softener) magnesium oxide 400 mg (241.3 mg 400 mg PO DAILY 07/24/24 07/24/24 Unknown History magnesium) tablet trazodone 100 mg tablet 100 mg PO DAILY 07/24/24 07/24/24 Unknown History Allergies Allergy/AdvReac Type Severity Reaction Status Date / Time No Known Allergies Allergy Verified 04/13/24 10:22 Current Medications Generic Name Dose Route Start Last Admin Trade Name Freq PRN Reason Stop Dose Admin Diltiazem HCl 100 mg/ Sodium 100 mls @ 0 mls/hr 07/24/24 08:00 07/24/24 12:06 Chloride IV 10 mg/hr .Q0M JEFF 10 mls/hr Titration Protocol Per Protocol PFSH Acute 2 PFSH: Medical History (Updated 07/24/24 @ 13:06 by Parrish Shah DO) Instability of joint Spondylolisthesis, lumbar region Morbid obesity with BMI of 50.0-59.9, adult Lumbar stenosis with neurogenic claudication Intervertebral disc disorder with radiculopathy of lumbosacral region Spondylolisthesis (~08/15/16) Surgical History (Updated 06/15/24 @ 00:00 by BLANCHE Mcgill) History of tonsillectomy History of knee surgery right knee laproscopic History of hysterectomy History of cervical spinal surgery (~2016) Dr. Abran [place] Family History Mother Stroke Arthritis Social History (Reviewed 06/07/24 @ 01:[address] ENGINEER by Alexandro Matthew DO) Smoking and tobacco/nicotine status: never used tobacco/nicotine Alcohol intake: never Substance/Drug Use: never Household members: spouse and family Marital status: Current occupational status: retired and disabled Vitals/I&O/Wt Last Vital Signs Temp 97.9 F 07/24/24 01:24 Pulse 76 07/24/24 12:38 Resp 16 07/24/24 11:53 BP 122/73 07/24/24 12:38 Pulse Ox 96 07/24/24 12:38 O2 Del Method Room Air 07/24/24 11:53 07/23/24 07/24/24 07/24/24 22:59 06:59 14:59 Intake Total 1000 / 1000 33.916 / 33.916 Balance 1000 / 1000 33.916 / 33.916 Weight last 48 hrs Weight 200 lb Physical Exam 2 Narrative: Alert and oriented x 3 Head is normocephalic atraumatic Respirations are intact No evidence of any rashes or infection strength in bilateral upper and lower extremities difficult to get a good exam because every time she moves she winces in pain. Sensation intact in all extremities Urinary Catheter Management: Garcia: Cath Placed During This Visit: yes Urinary Catheter Date of Insertion: 07/24/24 Data 07/24/24 02:09 07/24/24 02:09 Micro: Microbiology 07/24/24 02:09 Blood Culture - Preliminary Blood SPECIMEN COLLECTED 07/24/24 02:09 Blood Culture - Preliminary Blood SPECIMEN COLLECTED A&P Assessment and plan (1) Spondylolisthesis at L4-L5 level: Patient has L4-5 spinal thesis as well as lumbar stenosis neurogenic claudication. At this point we will get a new MRI to discuss treatment plan. However patient is on Eliquis and also sounds like she had some heart issues currently. At this point not sure if she would be candidate for any type of surgery. But will review the MRI and determine Coding Level of Care Code Acute Code for [facility] Fwd Diagnoses Spondylolisthesis at L4-L5 level M43.16
--- NOTE | 2024-07-24 13:11 | P.HP_ITS ---
Providers/Chief Complaint 2 Admitting Physician: Jermaine Rodriguez MD Primary Care Provider: Noel Landon MD Chief Complaint: Back Pain History of Present Illness Suma Rush is a 64 year old female presenting to the emergency department with weakness and back pain. She apparently has been ill since gastric bypass surgery in June 2023. She has not been able to eat well, and eventually was started on TPN in June 2024. They have hopes to reverse the surgery at some point in the future if she recovers enough. She has been having low back pain for quite some time. She has been treated for neuropathy before. She slid down, during a fall yesterday secondary to weakness. She did not hit her head or have loss of consciousness. Secondary to poor nutrition she has been receiving TPN 7 PM to 7 AM for at least the last 7 to 8 weeks through a PICC line placed about the same time. She normally gets her care at [facility]. No recent fever. In the emergency department she had an episode of atrial fibrillation with rapid ventricular rate, ultimately controlled and converted on Cardizem. She has no past medical history of A-fib, or coronary disease. Bladder scan demonstrated urinary retention and catheter was placed. There was concern with her low back pain, radiculopathy, urinary retention, abnormal CT findings that orthopedics was consulted. They recommended MRI. She was recently in [facility] rehab, discharging 7 to 10 days ago. Review of Systems 2 General: Reports: 10 or more systems reviewed and unremarkable except in HPI and below Card: Denies: chest pain Resp: Denies: dyspnea GI: Denies: abdominal pain Medications/Allergies Home Medications Medication Instructions Recorded Confirmed Last Taken Type diphenhydramine 25 3 tab PO BEDTIME PRN Pain 10/23/19 07/24/24 Unknown History mg-acetaminophen 500 mg tablet (Tylenol PM Extra Strength) gabapentin 400 mg capsule 400 mg PO TID 10/23/19 07/24/24 06/03/24 History levothyroxine 137 mcg capsule 137 mcg PO DAILY 10/23/19 07/24/24 06/03/24 History tramadol 50 mg tablet 50 mg PO TID PRN Pain 10/23/19 07/24/24 06/03/24 History multivitamin with iron 1 tab PO DAILY 04/13/24 07/24/24 06/03/24 History omeprazole 40 mg capsule,delayed 40 mg PO DAILY 04/13/24 07/24/24 06/03/24 History release apixaban 2.5 mg tablet (Eliquis) 2.5 mg PO BID 07/24/24 07/24/24 Unknown History docusate sodium 250 mg capsule 250 mg PO BID 07/24/24 07/24/24 Unknown History (Stool Softener) magnesium oxide 400 mg (241.3 mg 400 mg PO DAILY 07/24/24 07/24/24 Unknown History magnesium) tablet trazodone 100 mg tablet 100 mg PO DAILY 07/24/24 07/24/24 Unknown History Allergies Allergy/AdvReac Type Severity Reaction Status Date / Time No Known Allergies Allergy Verified 04/13/24 10:22 PFSH Acute 2 PFSH: Medical History (Updated 07/24/24 @ 13:24 by Jermaine Rodriguez MD) GERD (gastroesophageal reflux disease) Hypothyroidism Instability of joint Spondylolisthesis, lumbar region Morbid obesity with BMI of 50.0-59.9, adult Lumbar stenosis with neurogenic claudication Intervertebral disc disorder with radiculopathy of lumbosacral region Spondylolisthesis (~08/15/16) Surgical History History of cholecystectomy History of gastric bypass History of tonsillectomy History of knee surgery right knee laproscopic History of hysterectomy History of cervical spinal surgery (~2016) Dr. Abran Deleon [place] Family History Mother Stroke Arthritis Social History Smoking and tobacco/nicotine status: never used tobacco/nicotine Alcohol intake: never Substance/Drug Use: never Household members: spouse and family Marital status: Current occupational status: retired and disabled Vitals/I&O/Wt Last Vital Signs Temp 97.9 F 07/24/24 01:24 Pulse 76 07/24/24 12:38 Resp 16 07/24/24 11:53 BP 122/73 07/24/24 12:38 Pulse Ox 96 07/24/24 12:38 O2 Del Method Room Air 07/24/24 11:53 07/23/24 07/24/24 07/24/24 22:59 06:59 14:59 Intake Total 1000 / 1000 33.916 / 33.916 Balance 1000 / 1000 33.916 / 33.916 Weight last 48 hrs Weight 90.718 kg Physical Exam 2 Narrative: General Exam demonstrates a tired appearing female, reporting low back pain HEENT: Atraumatic normocephalic. Oropharynx is clear Neck is supple no lymphadenopathy thyromegaly Cardiovascular currently regular rate and rhythm with a 2/6 systolic murmur Lungs clear Abdomen is soft nontender exam Garcia Extremities no cyanosis clubbing. Trace edema. PICC line noted left upper extremity. Skin no rash Neuro no obvious focal deficits Urinary Catheter Management: Garcia: Cath Placed During This Visit: yes Urinary Catheter Date of Insertion: 07/24/24 Data 07/24/24 02:09 07/24/24 02:09 Other Labs: Lactic acid 2.3, repeat normal at 1.7 Hemoglobin A1c 4.4 LFTs with an elevation in AST of 33 and an alk phos of 123 Troponin 92 and repeat 93 Albumin 3.0, calcium 9.8 Urinalysis 6-10 reds 0-5 whites TSH normal Magnesium recently normal yesterday at 1.[address] demonstrates severe central stenosis L3/4. Severe stenosis L4/5. See report for other specificities of abnormalities EKG demonstrated atrial fibrillation with rapid ventricular response, left axis deviation, right bundle branch block. Repeat EKG demonstrated sinus rhythm left axis deviation right bundle branch block by my read I have ordered a chest x-ray Micro: Microbiology 07/24/24 02:09 Blood Culture - Preliminary Blood SPECIMEN COLLECTED 07/24/24 02:09 Blood Culture - Preliminary Blood SPECIMEN COLLECTED A&P Assessment and plan (1) Atrial fibrillation: Patient presents with weakness, was found to be in atrial fibrillation with rapid ventricular rate. She required Cardizem IV, and is since converted to sinus rhythm Initiate metoprolol 25 mg twice daily Magnesium, TSH were checked and normal Check echocardiogram Lovenox for anticoagulation (2) Back pain: Patient with significant low back pain Now there was a concern of urinary retention and Garcia has been placed CT indicates severe lumbar stenosis MRI has been ordered by orthopedic spine surgery Pain control with oxycodone Physical therapy consultation She does report weakness, falling 1 day ago which could contribute. (3) Protein calorie malnutrition: Significant weakness, protein calorie malnutrition, low albumin developing since her gastric bypass surgery over a year ago. She was recently in a long-term care hospital for rehab and was discharged 7 to 10 days ago. Try to obtain records Dietary consult for TPN which she is receiving by PICC line left upper extremity. Family indicates she eats, but very small amounts and typically gets infusions from 7 PM to 7 AM of nutrition via her PICC Plan Past history of DVT, currently on low-dose Eliquis. Changed to Lovenox secondary to A-fib, and potential need for a surgical procedure Other medical problems as outlined in past medical history Full code currently Lovenox for DVT prophylaxis Attestations 2 Medical Necessity Statement*: Will need greater than 2 midnight stay for evaluation and treatment of atrial fibrillation with rapid ventricular rate, significant back pain requiring IV pain medication, therapy consultation, orthopedic consultation and MRI Diagnoses Atrial fibrillation I48.91 Back pain M54.9 Protein calorie malnutrition E46 Time Spent (min) 45
--- NOTE | 2024-07-24 13:11 | PC.NURSE ---
received patient from ER patient alert and oriented v/s table medications in place
[2024-07-24 13:16] LABS: Estmated Average Glucose 80; Hemoglobin A1C 4.4 % (4.0-6.0)
--- NOTE | 2024-07-24 13:21 | XRR_ITS ---
PROCEDURE INFORMATION: Exam: XR Chest Exam date and time: 07/24/2024 1:56 PM Age: 64 years old Clinical indication: Condition or disease; Other: Arrhythmia TECHNIQUE: Imaging protocol: Radiologic exam of the chest. Views: 1 view. COMPARISON: CT abdomen pelvis w con* [id number] 06/07/2024 4:00 AM FINDINGS: Tubes, catheters and devices: PICC line terminates near the atrial caval junction. Lungs: Mild chronic interstitial prominence. Pleural spaces: Unremarkable. No pleural effusion. No pneumothorax. Heart/Mediastinum: See Vasculature finding. Vasculature: Mild cardiomegaly and uncoiling of the thoracic aorta. Bones/joints: Prior anterior cervical fusion. XR/XR chest 1V portable [id number] IMPRESSION: No acute findings.
--- NOTE | 2024-07-24 13:33 | ECG_ITS ---
[facility] Test Date: 2024-07-24 Pat Name: Suma Rush Department: Room: Gender: Female Nonprofit Fundraiser: : 1960 Requested By: Edward Nicole Order Number: [id number] Lisa MD: Derrick Ward M.D. Measurements Intervals [place] Rate: 82 P: -4 [place]: 138 QRS: -31 QRSD: 134 T: 10 QT: 405 QTc: 474 Interpretive Statements SINUS RHYTHM LEFT AXIS DEVIATION [QRS AXIS < -30] RIGHT BUNDLE BRANCH BLOCK [120+ ms QRS DURATION, UPRIGHT V1, 40+ ms S IN I/aVL/V4/V5/V6] Compared to ECG 07/24/2024 09:36:02 Left-axis deviation now present Atrial fibrillation no longer present Left anterior fascicular block no longer present Electronically Signed On 07-24-2024 19:54:13 IN SERVICE EDUCATION TEACHER by Derrick Ward M.D. [email or web address]
[2024-07-24] MEDS: enoxaparin 100 mg/mL Syringe SUBCUT (14:41)
[2024-07-24] MEDS: gabapentin 400 mg Capsule PO ×2 (14:42→20:43)
[2024-07-24] MEDS: oxyCODONE 5 mg IR Tab/Cap PO (14:56)
--- NOTE | 2024-07-24 15:18 | PC.PT ---
Patient adamantly refused PT evaluation at this time, refusing to sit bedside or demonstrate recently learned rehab program from 4-week stay at [facility]. Patient friend or other, male person in the room, states patient was doing well with moving at [employer] on Saturday, but has declined since then. Patient states severe back pain as to her current limitation, but denies pre-existing severity, and feels it is due to recent fall. Encouraged patient and person in the room to request pain medicine, and attempt to perform any out of bed activities with nursing staff as able. Will reattempt evaluation tomorrow.
[2024-07-24 15:20] LABS: Troponin 5 6HR 95.52 ng/L (0-10); Troponin 5 6HR Delta 3.52 ng/L (0-12)
[2024-07-24] MEDS: metoprolol tartrate 25 mg Tablet PO (20:43)
[2024-07-25] VITALS (9 sets, daily range): BP systolic 101–155; BP diastolic 61–106; PULSE 61–80; RESP 18–28; TEMP 36.5–38; O2SAT 92–96
[2024-07-25] MEDS: enoxaparin 100 mg/mL Syringe SUBCUT ×2 (01:29→13:16)
[2024-07-25] MEDS: ondansetron 2 mg/ML SDV 2 mL 4 MG IVP (02:18)
[2024-07-25 04:52] LABS: Basophils % 0.3 %; Hematocrit 28.6 % (36-47); Lymphocytes # 0.7 10^3/uL (0.8-4.8); Lymphocytes % 5.9 %; Mean Corpuscular HGB Conc 32.9 g/dL (30-55); Mean Corpuscular Hemoglobin 30.4 pg (27-33); Mean Corpuscular Volume 92.6 fl (85-98); Mean Platelet Volume 11.8 fL (7.4-10.4); Monocytes # 1.1 10^3/uL (0.2-0.9); Monocytes % 9.5 %; Neutrophils # 10.07 10^3/uL (1.8-7.7); Neutrophils % 83.9 %; Nucleated Red Blood Cells % 0 %; Platelet Count 158 10^3/cmm (157-399); Red Blood Count 3.09 10^6/uL (3.85-5.65); Red Cell Distribution Width 12.5 % (12.1-15.1)
[2024-07-25 05:13] LABS: Magnesium 1.9 mg/dL (1.7-2.3)
[2024-07-25 05:16] LABS: Alanine Aminotransferase 40 U/L (0-33); Albumin Level 2.7 g/dL (3.5-5.2); Alkaline Phosphatase 137 U/L (35-105); Anion Gap 12.6 (5-19); Aspartate Amino Transferase 53 U/L (0-32); Blood Urea Nitrogen 27 mg/dL (8-23); Calcium 10.2 mg/dL (8.5-10.5); Carbon Dioxide 25 mmol/L (22-29); Chloride 96 mmol/L (98-107); Creatinine Clr Calc Pharmacy 81.4362; Globulin 2.6 g/dL (1.3-4.6); Glucose 107 mg/dL (65-115); Osmolality Calculated 276 mOsm/kg (285-295); Potassium 3.6 mmol/L (3.5-5.1); Sodium 130 mmol/L (136-145); Total Bilirubin 1.2 mg/dL (0.15-1.2); Total Protein 5.3 g/dL (6.6-8.7)
[2024-07-25] MEDS: acetaminophen 325 mg Tablet 650 MG PO ×2 (08:31→18:36)
[2024-07-25] MEDS: levothyroxine 137 mcg Tablet PO (08:32)
[2024-07-25] MEDS: docusate sodium 100 mg Capsule 200 MG PO ×2 (08:32→18:37)
[2024-07-25] MEDS: gabapentin 400 mg Capsule PO ×3 (08:32→20:29)
[2024-07-25] MEDS: metoprolol tartrate 25 mg Tablet PO ×2 (08:35→20:30)
[2024-07-25] MEDS: oxyCODONE 5 mg IR Tab/Cap PO ×2 (08:35→18:36)
--- NOTE | 2024-07-25 11:24 | P.PN_ITS ---
Subjective 2 Subjective: Patient was seen this morning still complaining of pain. Worse in the left leg. And back. Patient MRI was reviewed it does reveal shows severe stenosis at L3- 4 L4-5. Vitals/I&O/Wt Last Vital Signs Temp 98.0 F 07/25/24 07:30 Pulse 80 07/25/24 07:30 Resp 18 07/25/24 08:35 BP 120/68 07/25/24 07:30 Pulse Ox 93 07/25/24 08:35 O2 Del Method Nasal Cannula 07/25/24 07:30 O2 Flow Rate 2 07/24/24 18:26 07/24/24 07/25/24 07/25/24 22:59 06:59 14:59 Intake Total 100 / 147.416 360 / 360 Output Total 400 / 400 800 / 1200 Balance -400 / -352.584 -700 / -1052.584 360 / 360 Weight last 48 hrs Weight 209 lb 7.026 oz Weight 209 lb 7.026 oz Weight 200 lb Physical Exam 2 Narrative: Unchanged from yesterday Urinary Catheter Management: Garcia: Cath Placed During This Visit: yes Reason for Continuing Indwelling Catheter: Other Urinary Catheter Date of Insertion: 07/24/24 Data 07/25/24 04:47 07/25/24 04:47 Micro: Microbiology 07/24/24 02:09 Blood Culture - Preliminary Blood Staphylococcus aureus 07/24/24 02:09 Blood Culture - Preliminary Blood Staphylococcus aureus 07/25/24 04:48 Blood Culture - Preliminary Blood SPECIMEN COLLECTED 07/25/24 04:47 Blood Culture - Preliminary Blood SPECIMEN COLLECTED A&P Assessment and plan (1) Lumbar stenosis with neurogenic claudication: Discussed with the possibility of doing surgery on Saturday. It would be an L3-4 and L4-5 minimally invasive decompression. She is off of Eliquis and taking Lovenox at this time. If she does decide to have surgery would stop the Lovenox tomorrow morning. Patient is going to discuss with her and I will check in with her tomorrow to see if she wants to proceed with surgery on Saturday. Attestations 2 Medical Necessity Statement*: Per primary service Coding Level of Care Code Acute Code for [facility] Fwd Diagnoses Lumbar stenosis with neurogenic claudication M48.062
[2024-07-25] MEDS: linezolid premix 600 MG/300 ML PREMIX 300 MG IV (13:16)
[2024-07-25] MEDS: trazodone 100 mg Tablet PO (20:30)
--- NOTE | 2024-07-25 22:03 | P.PN_ITS ---
Subjective 2 Subjective: She is feeling generally weak. Vitals/I&O/Wt Last Vital Signs Temp 99.6 F 07/25/24 19:33 Pulse 75 07/25/24 19:33 Resp 18 07/25/24 19:33 BP 124/73 07/25/24 19:33 Pulse Ox 95 07/25/24 19:33 O2 Del Method Nasal Cannula 07/25/24 19:33 O2 Flow Rate 2 07/24/24 18:26 07/25/24 07/25/24 07/25/24 06:59 14:59 22:59 Intake Total 100 / 147.416 900 / 900 Output Total 800 / 1200 1000 / 1000 Balance -700 / -1052.584 900 / 900 -1000 / -100 Weight last 48 hrs Weight 95 kg Weight 95 kg Weight 90.718 kg Physical Exam 2 Narrative: Sitting up in a chair. Const: COMMON NORMALS: patient oriented x3 and alert GENERAL APPEARANCE: c ooperative ORIENTATION/CONSCIOUSNESS: Yes awake HENMT: COMMON NORMALS: oropharynx normal Neck/C-Spine: COMMON NORMALS: no JVD Resp: COMMON NORMALS: normal respiratory effort and clear to auscultation bilaterally AUSCULTATION: clear to auscultation bilaterally Cardio: COMMON NORMALS: no JVD, regular rhythm, S1 normal heart sound present, S2 normal heart sound present and No murmurs present (Cardio) RHYTHM: regular rhythm HEART SOUNDS: S1 normal heart sound present and S2 normal heart sound present GI: COMMON NORMALS: Normal to inspection, nondistended, normoactive bowel sounds present, Soft to palpation and non-tender PALPATION: Yes Soft to palpation Extremity: COMMON NORMALS: no joint enlargement and no pedal edema N ARRATIVE EXTREMITY EXAM: Left extremity PICC line removed, no localized erythema, swelling, bruising or other changes. Neuro: COMMON NORMALS: patient oriented x3 and moves all extremities S ENSORIUM/ORIENTATION: Yes alert Skin: COMMON NORMALS: no rashes or lesions noted GENERAL SKIN EXAM: no rashes or lesions noted Urinary Catheter Management: Garcia: Cath Placed During This Visit: yes Reason for Continuing Indwelling Catheter: Other Urinary Catheter Date of Insertion: 07/24/24 Data 07/25/24 04:47 07/25/24 04:47 Micro: Microbiology 07/25/24 04:48 Blood Culture - Preliminary Blood Staphylococcus aureus 07/25/24 04:47 Blood Culture - Preliminary Blood Staphylococcus aureus 07/24/24 02:09 Blood Culture - Preliminary Blood Staphylococcus aureus 07/24/24 02:09 Blood Culture - Preliminary Blood Staphylococcus aureus A&P Assessment and plan (1) Staphylococcus aureus bacteremia: Overnight with finding of bacteremia. PICC line has been removed. Repeat blood cultures were obtained today. Reviewed original cultures and today's cultures, both showing identification of Staph aureus on initial ID. Follow-up culture growth. Started antibiotic coverage with linezolid. Monitor for risk of cytopenia, agranulocytosis, C. difficile. Discussed with her. TTE has been obtained, systolic function 65 to 65%. No LA dilation, mild MVR, mild AAS, mild TVR. No comparison available. Follow-up original and repeat cultures. Monitor vitals. Reviewed CBC, chemistry, magnesium. Repeat studies. (2) Back pain: Patient with significant low back pain Now there was a concern of urinary retention and Garcia has been placed CT indicates severe lumbar stenosis MRI has been ordered by orthopedic spine surgery. Reviewed. Noted multilevel multifactorial degenerative changes with various degrees of canal and neuroforaminal stenosis. Severe at L4-5 with compression of cauda equina. Moderate to severe canal stenosis L2-3, L3-4. Cauda equina crowded and/or compressed. Appreciate orthospine consultation. Consideration of minimally invasive decompression. However, will need to be reviewed in light of new finding of bacteremia as well. Pain control with oxycodone Physical therapy consultation She does report weakness, falling 1 day ago which could contribute. (3) Atrial fibrillation: Reviewed vitals. Heart rate so far doing better. Continue metoprolol 25 mg p.o. twice daily. IV Cardizem has been discontinued. Reviewed magnesium, TSH were checked and normal reviewed echocardiogram Lovenox for anticoagulation (4) Protein calorie malnutrition: PICC line had to be removed due to bacteremia. Could not continue TPN. She declines any sort of protein supplement as per discussion with registered dietitian. Revisited with her, despite only small amount of dairy, she states severe intolerance to all protein supplements. Discussed resuming nutrition with PPN. Significant weakness, protein calorie malnutrition, low albumin developing since her gastric bypass surgery over a year ago. She was recently in a long-term care hospital for rehab and was discharged 7 to 10 days ago. Try to obtain records Family indicates she eats, but very small amounts and typically gets infusions from 7 PM to 7 AM of nutrition via her PICC Plan Past history of DVT, currently on low-dose Eliquis at home. Changed to Lovenox secondary to A-fib, and potential need for a surgical procedure. Monitor for risk of bleeding Other medical problems as outlined in past medical history Full code currently Lovenox for DVT prophylaxis Attestations 2 Medical Necessity Statement*: Continue admission for assessment of management of staphylococcal bacteremia, compression fractures and severe spinal stenosis including compression of cauda equina, malnutrition with limited oral intake, preceding parenteral nutrition. Diagnoses Staphylococcus aureus bacteremia R78.81; B95.61 Back pain M54.9 Atrial fibrillation I48.91 Protein calorie malnutrition E46
[2024-07-26] VITALS (12 sets, daily range): BP systolic 117–145; BP diastolic 57–88; PULSE 64–119; RESP 15–27; TEMP 36.6–37.2; O2SAT 90–97
[2024-07-26] MEDS: enoxaparin 100 mg/mL Syringe SUBCUT ×2 (01:10→15:00)
[2024-07-26] MEDS: linezolid premix 600 MG/300 ML PREMIX 300 MG IV ×2 (01:10→15:12)
--- NOTE | 2024-07-26 03:40 | ECG_ITS ---
[facility]: 2024-[facility]26 Pat Name: Suma Rush Department: Room: 103 Gender: Female [employer]: : 1960 Requested By: Jermaine Shafer Order Number: [id number] Lisa MD: Francis Pierre M.D. Measurements Intervals [place] Rate: 121 P: 0 [place]: 0 QRS: -44 QRSD: 137 T: 9 QT: 326 QTc: 464 Interpretive Statements ATRIAL FIBRILLATION WITH RAPID VENTRICULAR RESPONSE LEFT AXIS DEVIATION [QRS AXIS < -30] RIGHT BUNDLE BRANCH BLOCK [120+ ms QRS DURATION, UPRIGHT V1, 40+ ms S IN I/aVL/V4/V5/V6] Compared to ECG 07/24/2024 12:09:18 Sinus rhythm no longer present Electronically Signed On 07-27-2024 20:15:15 [employer] by Francis Pierre M.D. [id number]
--- NOTE | 2024-07-26 04:04 | PC.NURSE ---
Spoke with regarding patient has gone into rapid afib, HR 110-140s, BP 122/72. Had previously been on Cardizem gtt in ER but had converted to SR and now was only on metoprolol 25mg BID for rate control. said start cardizem gtt on pt.
[2024-07-26] MEDS: dilTIAZem 100 MG in sodium chloride 0.9% (add-van) 100 ML IV (04:25)
[2024-07-26 05:31] LABS: Basophils # 0.1 10^3/uL (0.0-0.1); Basophils % 0.4 %; Eosinophils % 0.2 %; Lymphocytes # 0.7 10^3/uL (0.8-4.8); Mean Corpuscular HGB Conc 32.9 g/dL (30-55); Mean Corpuscular Hemoglobin 30.5 pg (27-33); Mean Corpuscular Volume 92.8 fl (85-98); Mean Platelet Volume 12.7 fL (7.4-10.4); Monocytes % 6.9 %; Neutrophils # 12.08 10^3/uL (1.8-7.7); Neutrophils % 86.7 %; Nucleated Red Blood Cells % 0 %; Platelet Count 154 10^3/cmm (157-399); Red Blood Count 3.34 10^6/uL (3.85-5.65); Red Cell Distribution Width 12.3 % (12.1-15.1); White Blood Count 13.93 10^3/uL (3.29-11.43)
[2024-07-26 05:56] LABS: Alanine Aminotransferase 48 U/L (0-33); Albumin Level 2.6 g/dL (3.5-5.2); Alkaline Phosphatase 184 U/L (35-105); Anion Gap 12.7 (5-19); Aspartate Amino Transferase 59 U/L (0-32); Blood Urea Nitrogen 30 mg/dL (8-23); Calcium 10.8 mg/dL (8.5-10.5); Carbon Dioxide 26 mmol/L (22-29); Chloride 94 mmol/L (98-107); Creatinine Clr Calc Pharmacy 81.4362; Globulin 3.5 g/dL (1.3-4.6); Glucose 91 mg/dL (65-115); Osmolality Calculated 274 mOsm/kg (285-295); Potassium 3.7 mmol/L (3.5-5.1); Sodium 129 mmol/L (136-145); Total Bilirubin 1.5 mg/dL (0.15-1.2); Total Protein 6.1 g/dL (6.6-8.7)
[2024-07-26] MEDS: gabapentin 400 mg Capsule PO ×3 (09:30→21:43)
[2024-07-26] MEDS: metoprolol tartrate 25 mg Tablet PO ×2 (09:30→21:43)
[2024-07-26] MEDS: oxyCODONE 5 mg IR Tab/Cap PO ×3 (09:30→21:43)
[2024-07-26] MEDS: levothyroxine 137 mcg Tablet PO (09:31)
--- NOTE | 2024-07-26 11:49 | PM.PN ---
Subjective Subjective: Patient is continue have pain and weakness in the legs. However now she has bacteremia. Vitals/I&O/Wt Last Vital Signs Temp 98.4 F 07/26/24 11:19 Pulse 65 07/26/24 11:19 Resp 20 H 07/26/24 11:19 BP 130/68 07/26/24 11:19 Pulse Ox 94 07/26/24 11:19 O2 Del Method Nasal Cannula 07/26/24 11:19 O2 Flow Rate 2 07/26/24 07:28 07/25/24 07/26/24 07/26/24 22:59 06:59 14:59 Intake Total 550 / 1450 240 / 240 Output Total 1000 / 1000 500 / 1500 650 / 650 Balance -1000 / -100 50 / -50 -410 / -410 Weight last 48 hrs Weight 209 lb 7.026 oz Weight 209 lb 7.026 oz Weight 209 lb 7.026 oz Physical Exam Narrative: Unchanged from yesterday Urinary Catheter Management: Garcia: Cath Placed During This Visit: yes Reason for Continuing Indwelling Catheter: Acute Urinary Retention or Obstruction Urinary Catheter Date of Insertion: 07/24/24 Data 07/26/24 04:29 07/26/24 04:29 Micro: Microbiology 07/25/24 04:48 Blood Culture - Preliminary Blood Staphylococcus aureus 07/25/24 04:47 Blood Culture - Preliminary Blood Staphylococcus aureus 07/24/24 02:09 Blood Culture - Preliminary Blood Staphylococcus aureus 07/24/24 02:09 Blood Culture - Preliminary Blood Staphylococcus aureus A&P Assessment and plan (1) Lumbar stenosis with neurogenic claudication: Did discuss surgery with the patient however with the bacteremia we will hold off until bacteremia is cleared up. At this point more likely if we do decide to do surgery be on an outpatient basis. Attestations Medical Necessity Statement*: Per primary service Coding Level of Care Code Acute Code for [facility] Diagnoses Lumbar stenosis with neurogenic claudication M48.062
--- NOTE | 2024-07-26 17:52 | P.PN_ITS ---
Subjective 2 Subjective: She is doing about the same today, does not feel she is significantly improved. Not much appetite. Has been bothered by back pain. Vitals/I&O/Wt Last Vital Signs Temp 97.9 F 07/26/24 16:00 Pulse 69 07/26/24 16:00 Resp 16 07/26/24 16:00 BP 143/63 07/26/24 16:00 Pulse Ox 90 07/26/24 16:00 O2 Del Method Room Air 07/26/24 16:00 O2 Flow Rate 2 07/26/24 07:28 07/26/24 07/26/24 07/26/24 06:59 14:59 22:59 Intake Total 550 / 1450 240 / 240 357.917 / 597.917 Output Total 500 / 1500 650 / 650 400 / 1050 Balance 50 / -50 -410 / -410 -42.083 / -452.083 Weight last 48 hrs Weight 95 kg Weight 95 kg Physical Exam 2 Narrative: Reclined in bed. Const: COMMON NORMALS: patient oriented x3 and alert GENERAL APPEARANCE: c ooperative ORIENTATION/CONSCIOUSNESS: Yes awake HENMT: COMMON NORMALS: oropharynx normal Neck/C-Spine: COMMON NORMALS: no JVD Resp: COMMON NORMALS: normal respiratory effort and clear to auscultation bilaterally AUSCULTATION: clear to auscultation bilaterally Cardio: COMMON NORMALS: no JVD, regular rhythm, S1 normal heart sound present, S2 normal heart sound present and No murmurs present (Cardio) RHYTHM: regular rhythm HEART SOUNDS: S1 normal heart sound present and S2 normal heart sound present GI: COMMON NORMALS: Normal to inspection, nondistended, normoactive bowel sounds present, Soft to palpation and non-tender PALPATION: Yes Soft to palpation Extremity: COMMON NORMALS: no joint enlargement and no pedal edema N ARRATIVE EXTREMITY EXAM: Left extremity PICC line removed, no localized erythema, swelling, bruising or other changes. Neuro: COMMON NORMALS: patient oriented x3 and moves all extremities S ENSORIUM/ORIENTATION: Yes alert OTHER: Sensation intact to light touch and temperature in bilateral lower extremities. Moving both feet. Skin: COMMON NORMALS: no rashes or lesions noted GENERAL SKIN EXAM: no rashes or lesions noted Urinary Catheter Management: Garcia: Cath Placed During This Visit: yes Reason for Continuing Indwelling Catheter: Acute Urinary Retention or Obstruction Urinary Catheter Date of Insertion: 07/24/24 Data 07/26/24 04:29 07/26/24 04:29 Micro: Microbiology 07/24/24 02:09 Blood Culture - Final Blood Staphylococcus aureus 07/24/24 02:09 Blood Culture - Final Blood Staphylococcus aureus 07/25/24 04:48 Blood Culture - Preliminary Blood Staphylococcus aureus 07/25/24 04:47 Blood Culture - Preliminary Blood Staphylococcus aureus A&P Assessment and plan (1) Staphylococcus aureus bacteremia: Reviewed vitals, CBC, CMP. Blood culture. Repeat culture noted again positive for Staph aureus notification. Discussed with her. Discussed with orthopedic surgeon. Surgical procedure deferred until cleared bacteremia. Continue linezolid. Monitor for risk of cytopenia, agranulocytosis, C. difficile. Reassess vitals, CBC. Requesting repeat culture for tomorrow morning. PICC line has been removed. I do not see a tip culture. TTE has been obtained, systolic function 65 to 65%. No LA dilation, mild MVR, mild AAS, mild TVR. No comparison available. Follow-up original and repeat cultures. Monitor vitals. Reviewed CBC, chemistry, magnesium. Repeat studies. (2) Back pain: Patient with significant low back pain. Reviewed her results of MRI scan. Reviewed with orthopedics. With persistent bacteremia surgical procedure has been deferred until clears bacteremia. Now there was a concern of urinary retention and Garcia has been placed CT indicates severe lumbar stenosis MRI has multilevel multifactorial degenerative changes with various degrees of canal and neuroforaminal stenosis. Severe at L4-5 with compression of cauda equina. Moderate to severe canal stenosis L2-3, L3-4. Cauda equina crowded and/or compressed. Appreciate orthospine consultation. Consideration of minimally invasive decompression. Deferred at current time due to persistent Staph aureus bacteremia. Pain control with oxycodone. Renew oxycodone. Physical therapy consultation She does report weakness, falling 1 day ago which could contribute. (3) Atrial fibrillation: Reviewed vitals. Heart rate so far doing better. Continue metoprolol 25 mg p.o. twice daily. IV Cardizem has been discontinued. Reviewed magnesium, TSH were checked and normal reviewed echocardiogram Lovenox for anticoagulation (4) Protein calorie malnutrition: PICC line had to be removed due to bacteremia. Could not continue TPN. She declines any sort of protein supplement as per discussion with registered dietitian. Revisited with her, despite only small amount of dairy, she states severe intolerance to all protein supplements. Discussed resuming nutrition with PPN. Significant weakness, protein calorie malnutrition, low albumin developing since her gastric bypass surgery over a year ago. She was recently in a long-term care hospital for rehab and was discharged 7 to 10 days ago. Try to obtain records Family indicates she eats, but very small amounts and typically gets infusions from 7 PM to 7 AM of nutrition via her PICC Plan Past history of DVT, currently on low-dose Eliquis at home. Changed to Lovenox secondary to A-fib, and potential need for a surgical procedure. Monitor for risk of bleeding Other medical problems as outlined in past medical history Full code currently Lovenox for DVT prophylaxis Attestations 2 Medical Necessity Statement*: Continue admission for assessment of management of persistent Staph aureus bacteremia, compression fractures and severe spinal stenosis including compression of cauda equina, malnutrition with limited oral intake, preceding parenteral nutrition. Diagnoses Staphylococcus aureus bacteremia R78.81; B95.61 Back pain M54.9 Atrial fibrillation I48.91 Protein calorie malnutrition E46
[2024-07-26] MEDS: trazodone 100 mg Tablet PO (21:43)
[2024-07-27] VITALS (58 sets, daily range): BP systolic 107–149; BP diastolic 58–92; PULSE 63–119; RESP 13–23; TEMP 36.4–37.7; O2SAT 90–100
[2024-07-27] MEDS: enoxaparin 100 mg/mL Syringe SUBCUT ×2 (01:31→15:54)
[2024-07-27] MEDS: linezolid premix 600 MG/300 ML PREMIX 300 MG IV (01:31)
[2024-07-27 04:12] LABS: Basophils % 0.2 %; Eosinophils # 0.1 10^3/uL (0.0-0.8); Eosinophils % 0.7 %; Hematocrit 27.5 % (36-47); Lymphocytes # 0.9 10^3/uL (0.8-4.8); Lymphocytes % 9.1 %; Mean Corpuscular HGB Conc 33.5 g/dL (30-55); Mean Corpuscular Hemoglobin 30.3 pg (27-33); Mean Corpuscular Volume 90.5 fl (85-98); Mean Platelet Volume 12.5 fL (7.4-10.4); Monocytes # 0.9 10^3/uL (0.2-0.9); Monocytes % 8.6 %; Neutrophils # 7.99 10^3/uL (1.8-7.7); Neutrophils % 80.7 %; Nucleated Red Blood Cells % 0 %; Platelet Count 198 10^3/cmm (157-399); Red Blood Count 3.04 10^6/uL (3.85-5.65); Red Cell Distribution Width 12.5 % (12.1-15.1)
[2024-07-27 04:39] LABS: Alanine Aminotransferase 45 U/L (0-33); Albumin Level 2.3 g/dL (3.5-5.2); Alkaline Phosphatase 196 U/L (35-105); Anion Gap 9.6 (5-19); Aspartate Amino Transferase 52 U/L (0-32); Blood Urea Nitrogen 26 mg/dL (8-23); Calcium 10.3 mg/dL (8.5-10.5); Carbon Dioxide 27 mmol/L (22-29); Chloride 93 mmol/L (98-107); Creatinine Clr Calc Pharmacy 81.4362; Globulin 3.1 g/dL (1.3-4.6); Glucose 105 mg/dL (65-115); Osmolality Calculated 267 mOsm/kg (285-295); Potassium 3.6 mmol/L (3.5-5.1); Sodium 126 mmol/L (136-145); Total Protein 5.4 g/dL (6.6-8.7)
[2024-07-27] MEDS: oxyCODONE 5 mg IR Tab/Cap PO ×2 (06:24→11:31)
[2024-07-27] MEDS: gabapentin 400 mg Capsule PO ×3 (09:07→22:02)
[2024-07-27] MEDS: levothyroxine 137 mcg Tablet PO (09:07)
[2024-07-27] MEDS: docusate sodium 100 mg Capsule 200 MG PO ×2 (09:07→16:59)
[2024-07-27] MEDS: metoprolol tartrate 25 mg Tablet PO ×2 (09:09→22:02)
[2024-07-27] MEDS: nafcillin 2,000 MG in sodium chloride 0.9% (plus) 50 ML 50 MG IV (11:30)
--- NOTE | 2024-07-27 13:32 | PC.SOCIAL ---
IMM Updated Updated pt on IMM. No questions voiced. Provided pt a copy. Initialed, dated, & timed a copy & placed in chart.
[2024-07-27 14:26] LABS: Sodium 125 mmol/L (136-145)
--- NOTE | 2024-07-27 14:51 | CT_ITS ---
WS: [id number] CT CHEST, ABDOMEN AND PELVIS NONCONTRAST HISTORY: ams,staph bacteremia TECHNIQUE: Contiguous 5 mm axial imaging performed through the chest, abdomen and pelvis without IV c ontrast, oral contrast has not been provided. Coronal and sagittal reformats chest. Coronal and sagit anam reformats through the abdomen and pelvis. All CT scans at [facility] use at least one of these dose optimization techniques: automated exposure control; mA and/or kV adjustment per patient s ize (includes targeted exams where dose is matched to clinical indication); or iterative reconstructi on. CONTRAST: None DLP: 1126.78 mGy.cm COMPARISON: 06/07/[address]: Dependent changes and atelectasis at the lung bases. Mild hazy attenuation at the lung base s. Breathing motion artifact. No pneumothorax. Mild atherosclerosis aorta. Mildly dilated pulmonary a rtery. Moderate cardiac enlargement. Heart appears to have increased in size since the prior exam of 06/07/2024. Abdomen CT: Mild soft tissue anasarca. Hepatic steatosis. Prior cholecystectomy and gastric bypass. N ormal size spleen. No renal obstruction. No GI tract obstruction. No ascites. No adrenal mass. Diffuse soft tissue anasarca. Pelvic CT: Tiny amount of free fluid in the pelvis. Garcia cath in the urinary bladder. There is air i n the urinary bladder from the catheter placement. L4 anterolisthesis by 5 mm. Increase in thoracic kyphosis. CT/[place] [id number] IMPRESSION: 1. Dependent changes and atelectasis at the lung bases. 2. No pneumothorax or pneumonia. 3. No free air. 4. Diffuse soft tissue anasarca. 5. Very small amount of residual free fluid in the pelvis. 6. Garcia catheter in the urinary bladder. 7. Hepatic steatosis and prior cholecystectomy. 8. Cardiomegaly. Heart appears larger than it did on 06/07/2024.
--- NOTE | 2024-07-27 15:07 | P.PN_ITS ---
Subjective 2 Subjective: - Patient was seen this morning, she is alert to person, to place, not to time, does report poor appetite -She reports that she had a gastric bypa ss June of last year, since then she has had a poor appetite, had a PICC line placed for peripheral nutrition June of this year ? Denies IV drug use ? She does report she has had neck surgery in the past, and has a plate in her neck, ? During my conversations she is a bit drowsy, Vitals/I&O/Wt Last Vital Signs Temp 98.5 F 07/27/24 12:00 Pulse 119 H 07/27/24 14:00 Resp 20 H 07/27/24 12:00 BP 107/58 07/27/24 12:00 Pulse Ox 100 07/27/24 12:00 O2 Del Method Room Air 07/27/24 12:00 O2 Flow Rate 1 07/27/24 07:47 07/27/24 07/27/24 07/27/24 06:59 14:59 22:59 Intake Total 800 / 2117.917 530 / 530 Output Total 600 / 1950 800 / 800 Balance 200 / 167.917 -270 / -270 Weight last 48 hrs Weight 94.6 kg Weight 94.6 kg Weight 95 kg Physical Exam 2 Const: COMMON NORMALS: no acute distress ORIENTATION/CONSCIOUSNESS: Yes awake, Yes oriented to person and Yes oriented to place; not oriented to time Neck/C-Spine: COMMON NORMALS: no JVD Resp: COMMON NORMALS: normal respiratory effort, No retractions, No use of accessory muscles and clear to auscultation bilaterally AUSCULTATION: clear to auscultation bilaterally Cardio: COMMON NORMALS: no JVD, regular rate, regular rhythm, S1 normal heart sound present and S2 normal heart sound present RATE: regular rate RHYTHM: regular rhythm HEART SOUNDS: S1 normal heart sound present and S2 normal heart sound present GI: COMMON NORMALS: Normal to inspection, nondistended, normoactive bowel sounds present and non-tender Extremity: COMMON NORMALS: no pedal edema Neuro: SENSORIUM/ORIENTATION: Yes oriented to person, Yes oriented to place and No oriented to time Psych: COMMON NORMALS: mental status grossly normal Urinary Catheter Management: Garcia: Cath Placed During This Visit: yes Reason for Continuing Indwelling Catheter: Acute Urinary Retention or Obstruction Urinary Catheter Date of Insertion: 07/24/24 Data 07/27/24 03:01 07/27/24 13:55 Micro: Microbiology 07/25/24 04:47 Blood Culture - Preliminary Blood Staphylococcus aureus 07/27/24 03:04 Blood Culture - Preliminary Blood SPECIMEN COLLECTED 07/27/24 03:01 Blood Culture - Preliminary Blood SPECIMEN COLLECTED 07/24/24 02:09 Blood Culture - Final Blood Staphylococcus aureus 07/24/24 02:09 Blood Culture - Final Blood Staphylococcus aureus A&P Assessment and plan (1) Staphylococcus aureus bacteremia: - MSSA bacteremia -Source is likely PICC line that was placed in June 2024 for feeding, poor appetite after her gastric bypass surgery June 2023 -PICC line has removed -Transthoracic cardiac echocardiogram, no valvular vegetations, no reported IV drug use -But will do CT chest abdomen pelvis -She does report neck pain, she has had neck surgery she has metal hardware in her neck we will do CT of her neck -She did complain of back pain, she has had a lumbar MRI no evidence of discitis -First 2 blood cultures positive for MSSA species -Third set of blood cultures pending -Start cefazolin -Will eventually PICC line placed for long-term IV antibiotics (2) Back pain: MR/MR lumbar spine wo con* [id number] IMPRESSION: Multilevel, multifactorial degenerative changes are present throughout the lumbar spine with varying degrees of canal and neural foramina stenosis as described in detail above. The canal stenosis is severe at the L4-L5 level with compression of the cauda equina. Canal stenosis is moderate to severe at the L2-L3 and L3-L4 levels where the cauda equina are crowded and/or compressed. -Orthopedic service has been consulted -For now given her MSSA bacteremia surgical intervention is on hold (3) Atrial fibrillation: Continue p.o. metoprolol Therapeutic Lovenox (4) Protein calorie malnutrition: - Used to get infusions from peripheral nutrition through her PICC line 7 PM to 7 AM -Will consult dietary -Encourage p.o. intake -Options if her p.o. intake remains poor his PEG tube placement Plan Past history of DVT, currently on low-dose Eliquis at home. Changed to Lovenox secondary to A-fib, and potential need for a surgical procedure. Monitor for risk of bleeding Other medical problems as outlined in past medical history Hyponatremia, likely secondary to poor oral intake, IV fluids, salt tablets, monitor serum sodium every 6 hours Acute encephalopathy, monitor mentation closely, monitor serum sodium levels, CT head Full code currently Lovenox for DVT prophylaxis Attestations 2 Medical Necessity Statement*: Patient requires hospitalization for MSSA bacteremia Diagnoses Staphylococcus aureus bacteremia R78.81; B95.61 Back pain M54.9 Atrial fibrillation I48.91 Protein calorie malnutrition E46
--- NOTE | 2024-07-27 15:09 | CT_ITS ---
WS: [id number] CT NECK WITHOUT CONTRAST HISTORY: neck pain, surgical site infection TECHNIQUE: Contiguous 2 mm axial images are performed through the neck without intravenous contrast. Sagittal and coronal reformats are also submitted. All CT scans at [facility] use at least on e of these dose optimization techniques: automated exposure control; mA and/or kV adjustment per nima ent size (includes targeted exams where dose is matched to clinical indication); or iterative reconst ruction. CONTRAST: CONTRAST: None DLP: 1397.97 mGy.cm COMPARISON: None available. Nasopharynx, oropharynx, hypopharynx and larynx are unremarkable. No soft tissue mass or stranding. Torus tubarius and fossa of Rosenmuller and parapharyngeal fat are normal. Small bilateral cervical chain lymph nodes. Thyroid gland and salivary glands are normally enhancing with no masses. Prior anterior cervical fusion at C5-6 with interbody spacer. Visualized portions of the skull base demonstrate no abnormalities. Orbits and globes are within norm al limits. No soft tissue masses. Visualized paranasal sinuses and mastoid air cells are normal. Atherosclerotic plaque thoracic aortic arch. Lung apices are clear. CT/CT neck wo con [id number] IMPRESSION: Unremarkable neck CT.
--- NOTE | 2024-07-27 15:14 | CT_ITS ---
WS: [id number] CT HEAD NONCONTRAST HISTORY: ams TECHNIQUE: Contiguous axial imaging performed through the brain. Bone and soft tissue windows. Sagitt al and coronal reformats reviewed. All CT scans at [facility] use at least one of these dose optimization techniques: automated exposure control; mA and/or kV adjustment per patient size (includ es targeted exams where dose is matched to clinical indication); or iterative reconstruction. DLP: 1397.97 mGy.cm COMPARISON: None available. No acute intracranial hemorrhage, midline shift or mass effect. Minimal atrophy and small vessel disease. Ventricles: Normal size with no hydrocephalus. No inferior displacement of cerebellar tonsils. Paranasal sinuses: As visualized are clear. Mastoid air cells: Well pneumatized. Calvarium and scalp: Skull is intact with no soft tissue edema or swelling. CT/CT head wo con* [id number] IMPRESSION: 1. No acute intracranial hemorrhage or edema. 2. Minimal cerebral atrophy and small vessel disease. 3. No paranasal sinus disease.
[2024-07-27] MEDS: sodium chloride 1 gm Tablet PO (16:59)
[2024-07-27] MEDS: sodium chloride 0.9% 1,000 ML 75 ML IV (16:59)
[2024-07-27] MEDS: ceFAZolin 2,000 mg SDV 2000 MG IVP (16:59)
[2024-07-27 18:42] LABS: Sodium 127 mmol/L (136-145)
[2024-07-28] VITALS (59 sets, daily range): BP systolic 134–189; BP diastolic 66–87; PULSE 63–82; RESP 12–36; TEMP 36.5–37; O2SAT 93–99
[2024-07-28 01:26] LABS: Sodium 129 mmol/L (136-145)
[2024-07-28] MEDS: ceFAZolin 2,000 mg SDV 2000 MG IVP ×3 (02:51→18:01)
[2024-07-28] MEDS: enoxaparin 100 mg/mL Syringe SUBCUT ×2 (02:51→14:54)
[2024-07-28] MEDS: acetaminophen 325 mg Tablet 650 MG PO (03:02)
[2024-07-28 04:51] LABS: Basophils % 0.2 %; Eosinophils % 0.1 %; Hematocrit 28.3 % (36-47); Lymphocytes # 0.9 10^3/uL (0.8-4.8); Lymphocytes % 8.4 %; Mean Corpuscular HGB Conc 33.6 g/dL (30-55); Mean Corpuscular Hemoglobin 30.4 pg (27-33); Mean Corpuscular Volume 90.7 fl (85-98); Mean Platelet Volume 11.8 fL (7.4-10.4); Monocytes # 0.9 10^3/uL (0.2-0.9); Monocytes % 8.2 %; Neutrophils # 8.64 10^3/uL (1.8-7.7); Neutrophils % 82.3 %; Nucleated Red Blood Cells % 0 %; Platelet Count 228 10^3/cmm (157-399); Red Blood Count 3.12 10^6/uL (3.85-5.65); Red Cell Distribution Width 12.4 % (12.1-15.1); White Blood Count 10.49 10^3/uL (3.29-11.43)
[2024-07-28 05:15] LABS: C Reactive Protein 134.8 mg/L (0.0-4.9)
[2024-07-28 05:25] LABS: Alanine Aminotransferase 42 U/L (0-33); Albumin Level 2.4 g/dL (3.5-5.2); Alkaline Phosphatase 187 U/L (35-105); Anion Gap 12.3 (5-19); Aspartate Amino Transferase 49 U/L (0-32); Blood Urea Nitrogen 18 mg/dL (8-23); Carbon Dioxide 26 mmol/L (22-29); Chloride 94 mmol/L (98-107); Creatinine Clr Calc Pharmacy 81.2591; Globulin 2.9 g/dL (1.3-4.6); Glomerular Filtration Rate 100.3 mL/min (90-130); Glucose 102 mg/dL (65-115); Osmolality Calculated 270 mOsm/kg (285-295); Potassium 3.3 mmol/L (3.5-5.1); Sodium 129 mmol/L (136-145); Total Bilirubin 0.9 mg/dL (0.15-1.2); Total Protein 5.3 g/dL (6.6-8.7)
[2024-07-28] MEDS: sodium chloride 0.9% 1,000 ML 75 ML IV (09:04)
[2024-07-28] MEDS: metoprolol tartrate 25 mg Tablet PO ×2 (09:07→20:27)
[2024-07-28] MEDS: gabapentin 400 mg Capsule PO ×3 (09:07→20:27)
[2024-07-28] MEDS: sodium chloride 1 gm Tablet PO ×2 (09:08→18:01)
[2024-07-28] MEDS: levothyroxine 137 mcg Tablet PO (09:08)
--- NOTE | 2024-07-28 14:41 | P.PN_ITS ---
Subjective 2 Subjective: Patient was seen this morning she is alert to person, to place, not to time she tells me she is sat up in a chair yesterday, but was quite uncomfortable, denies any fevers, no chills, we discussed her blood cultures being positive, she remains afebrile, normotensive, discussed with her that I feel is likely as she was on Zyvox and the staph is growing in her bloodstream is resistant to Zyvox she has since then been transitioned to cefazolin, but will discuss with infectious disease, consider transesophageal echocardiogram, Vitals/I&O/Wt Last Vital Signs Temp 97.8 F 07/28/24 11:17 Pulse 64 07/28/24 11:17 Resp 20 H 07/28/24 11:17 BP 159/73 07/28/24 11:17 Pulse Ox 95 07/28/24 11:17 O2 Del Method Room Air 07/28/24 11:17 O2 Flow Rate 1 07/27/24 07:47 07/27/24 07/28/24 07/28/24 22:59 06:59 14:59 Intake Total 220 / 750 1000 / 1750 120 / 120 Output Total 525 / 1325 1150 / 2475 600 / 600 Balance -305 / -575 -150 / -725 -480 / -480 Weight last 48 hrs Weight 95.4 kg Weight 94.6 kg Weight 94.6 kg Physical Exam 2 Const: COMMON NORMALS: no acute distress and patient oriented x3 Resp: COMMON NORMALS: normal respiratory effort, No retractions, No use of accessory muscles and clear to auscultation bilaterally AUSCULTATION: clear to auscultation bilaterally Cardio: COMMON NORMALS: regular rate, regular rhythm, S1 normal heart sound present and S2 normal heart sound present RATE: regular rate RHYTHM: r egular rhythm HEART SOUNDS: S1 normal heart sound present and S2 normal heart sound present GI: COMMON NORMALS: Normal to inspection, nondistended, normoactive bowel sounds present and non-tender Extremity: COMMON NORMALS: no pedal edema Neuro: COMMON NORMALS: patient oriented x3 Psych: COMMON NORMALS: mental status grossly normal Urinary Catheter Management: Garcia: Cath Placed During This Visit: yes Reason for Continuing Indwelling Catheter: Accurate Measurement of Urinary Output in Critically Ill Patients Urinary Catheter Date of Insertion: 07/24/24 Data 07/28/24 03:57 07/28/24 03:57 Micro: Microbiology 07/27/24 03:01 Blood Culture - Preliminary Blood 07/27/24 03:04 Blood Culture - Preliminary Blood NEGATIVE TO DATE 07/25/24 04:47 Blood Culture - Preliminary Blood Staphylococcus aureus A&P Assessment and plan (1) Staphylococcus aureus bacteremia: - MSSA bacteremia -Source is likely PICC line that was placed in June 2024 for feeding, poor appetite after her gastric bypass surgery June 2023 -PICC line has been removed -Transthoracic cardiac echocardiogram, no valvular vegetations, no reported IV drug use -But will do CT chest abdomen pelvis no acute findings -She did complain of back pain, she has had a lumbar MRI no evidence of discitis -First 3 blood cultures positive for MSSA species -Continue cefazolin -Will wait until 48 hours repeat blood cultures -Will consider transesophageal echocardiogram based on clinical progress -Will eventually PICC line placed for long-term IV antibiotics (2) Back pain: MR/MR lumbar spine wo con* [id number] IMPRESSION: Multilevel, multifactorial degenerative changes are present throughout the lumbar spine with varying degrees of canal and neural foramina stenosis as described in detail above. The canal stenosis is severe at the L4-L5 level with compression of the cauda equina. Canal stenosis is moderate to severe at the L2-L3 and L3-L4 levels where the cauda equina are crowded and/or compressed. -Orthopedic service has been consulted -For now given her MSSA bacteremia surgical intervention is on hold (3) Atrial fibrillation: Continue p.o. metoprolol Therapeutic Lovenox (4) Protein calorie malnutrition: - Used to get infusions from peripheral nutrition through her PICC line 7 PM to 7 AM -Patient had a gastric bypass June 2023, had poor appetite since then, and then had PICC line placed roughly June 2024, due to poor appetite, now removed -Will consult dietary -Encourage p.o. intake -If she continues to have poor oral intake will consider PEG tube placement Plan Past history of DVT, currently on low-dose Eliquis at home. Changed to Lovenox secondary to A-fib, and potential need for a surgical procedure. Monitor for risk of bleeding Other medical problems as outlined in past medical history Hyponatremia, likely secondary to poor oral intake, IV fluids, salt tablets, monitor serum sodium every 6 hours Acute encephalopathy, monitor mentation closely, monitor serum sodium levels, CT head no acute findings Full code currently Lovenox for DVT prophylaxis Attestations 2 Medical Necessity Statement*: Patient requires hospitalization for MSSA bacteremia, hyponatremia Diagnoses Staphylococcus aureus bacteremia R78.81; B95.61 Back pain M54.9 Atrial fibrillation I48.91 Protein calorie malnutrition E46
--- NOTE | 2024-07-28 16:14 | P.CONIM_ITS ---
Providers/Reason For Consult 2 Consulting Physician/Specialty*: Lizzeth Roman MD / infectious disease Reason for Consult*: MSSA bacteremia Requesting Physician: James Fletcher MD Attending Physician: James Fletcher MD Primary Care Provider: Noel Landon MD History of Present Illness History of Present Illness Suma Rush is a 64 year old female with a past medical history of gastric bypass surgery in June 2023 since when she states she has not been able to eat very much. She had been complaining of progressive weakness over the past few months and had been started on TPN in June 2024. PICC line was placed sometime around June 22, 2024. Per review of chart she has had issues with osteoarthritis involving multiple joints, particularly the knees, has previously had C-spine surgery, has had recurrent falls, and was at [facility] rehab 7 to 10 days ago. She presented to the emergency room on 07/24/2024 with chief complaints of back pain and increased lower extremity weakness. In the ER she was also noted to have A-fib with RVR. She had urinary retention. MRI of the back was obtained which was concerning for findings of cauda equina syndrome. She was planned for decompressive surgery at levels L3-L5 however in the interim her blood cultures returned positive for MSSA. She was febrile, had leukocytosis upon admission. She remained with positive blood cultures between 07/24/2024 to 07/27/2024. On 07/25/2024 she had started antibiotics with linezolid 600 mg every 12 hours. TTE was obtained which showed systolic function of 60 to 65% without LA dilatation, mild MVR and mild TVR. No prior studies were available for comparison. Her PICC line which was previously placed was removed from the left arm. She underwent a CT of the chest abdomen and pelvis for infectious source evaluation. It showed dependent changes and atelectasis in the lung bases without obvious consolidation. There was a small amount of residual free fluid in the pelvis and soft tissue anasarca. Changes of prior cholecystectomy and gastric bypass were noted. No obvious abscess was encountered. Lumbar spine MRI had shown multilevel multifactorial degenerative changes with foraminal stenosis without signs of discitis or osteomyelitis. Urine analysis was negative for leukocyte esterase nitrates or WBCs. At the time of assessment today patient is globally weak, somewhat lethargic and unable to contribute significantly to her history taking at this time. She does not have any pacemaker or replaced valves. No orthopedic hardware other than C-spine fixation. Medication history: Linezolid 600 mg IV every 12 hours -. Switched to nafcillin today. Review of Systems 2 General: Reports: ROS unobtainable due to medical condition and ROS unobtainable due to mental status Medications/Allergies Home Medications Medication Instructions Recorded Confirmed Last Taken Type gabapentin 400 mg capsule 400 mg PO TID 10/23/19 07/24/24 06/03/24 History levothyroxine 137 mcg capsule 137 mcg PO DAILY 10/23/19 07/24/24 06/03/24 History multivitamin with iron 1 tab PO DAILY 04/13/24 07/24/24 06/03/24 History omeprazole 40 mg capsule,delayed 40 mg PO DAILY 04/13/24 07/24/24 06/03/24 History release docusate sodium 250 mg capsule 250 mg PO BID 07/24/24 07/24/24 Unknown History (Stool Softener) magnesium oxide 400 mg (241.3 mg 400 mg PO DAILY 07/24/24 07/24/24 Unknown History magnesium) tablet amlodipine 10 mg tablet 10 mg PO DAILY 30 days #30 tabs 07/31/24 Unknown Rx apixaban 2.5 mg tablet (Eliquis) 5 mg (2 x 2.5 mg) PO BID 30 days 07/31/24 07/24/24 Unknown Rx #120 tabs cefazolin 2 gram solution for 2,000 mg IVP Q8H 6 weeks #25 ea 07/31/24 Unknown Rx injection metoprolol tartrate 25 mg tablet 25 mg PO BID@0900,2100 30 days #60 07/31/24 Unknown Rx tabs multivitamin 1 tab PO DAILY 30 days #30 tabs 07/31/24 Unknown Rx oxycodone 5 mg tablet 5 mg PO Q6H PRN Moderate Pain 7 07/31/24 Unknown Rx days #28 tabs sodium chloride 1,000 mg soluble 1,000 mg PO DAILY 30 days #30 tabs 07/31/24 Unknown Rx tablet Allergies Allergy/AdvReac Type Severity Reaction Status Date / Time Milk Containing Products AdvReac Severe ADR-Flatule Verified 07/26/24 20:22 (Dairy) nce Current Medications Generic Name Dose Route Start Last Admin Trade Name Freq PRN Reason Stop Dose Admin Acetaminophen 650 mg 07/24/24 13:27 07/28/24 03:02 Acetaminophen 325 Mg Tablet PO 650 mg Q6H PRN Administration Mild/Mod Pain Or Temp >/= 101 Cefazolin Sodium 2,000 mg 07/27/24 18:00 07/28/24 10:26 Cefazolin 2,000 Mg Sdv IVP 2,000 mg Q8H JEFF Administration Protocol Docusate Sodium 200 mg 07/24/24 18:00 07/28/24 09:08 Docusate Sodium 100 Mg Capsule PO Not Given BID JEFF Enoxaparin Sodium 100 mg 07/24/24 14:00 07/28/24 14:54 Enoxaparin 100 Mg/Ml Syringe 1 mg/kg (100 mg) 100 mg SUBCUT Administration Q12H JEFF Gabapentin 400 mg 07/24/24 15:00 07/28/24 14:55 Gabapentin 400 Mg Capsule PO 400 mg TID JEFF Administration Sodium Chloride 1,000 mls @ 50 mls/hr 07/27/24 10:45 07/28/24 13:39 Sodium Chloride 0.9% IV Not Given .Q20H JEFF Levothyroxine Sodium 137 mcg 07/25/24 09:00 07/28/24 09:08 Levothyroxine 137 Mcg Tablet PO 137 mcg DAILY JEFF Administration Metoprolol Tartrate 25 mg 07/24/24 21:00 07/28/24 09:07 Metoprolol Tartrate 25 Mg Tablet PO 25 mg BID@0900,2100 JEFF Administration Ondansetron HCl 4 mg 07/24/24 13:27 07/25/24 02:18 Ondansetron 2 Mg/Ml Sdv 2 Ml IVP 4 mg Q6H PRN Administration vomiting, or N/V if npo Oxycodone HCl 5 mg 07/24/24 13:23 07/27/24 11:31 Oxycodone 5 Mg Ir Tab/Cap PO 5 mg Q4H PRN Administration MODERATE PAIN Sodium Chloride 1 gm 07/27/24 18:00 07/28/24 09:08 Sodium Chloride 1 Gm Tablet PO 1 gm BID JEFF Administration PFSH Acute 2 PFSH: Medical History (Updated 08/01/24 @ 12:06 by Lizzeth Roman MD) GERD (gastroesophageal reflux disease) Hypothyroidism Instability of joint Spondylolisthesis, lumbar region Morbid obesity with BMI of 50.0-59.9, adult Lumbar stenosis with neurogenic claudication Intervertebral disc disorder with radiculopathy of lumbosacral region Spondylolisthesis (~08/15/16) Surgical History History of cholecystectomy History of gastric bypass History of tonsillectomy History of knee surgery right knee laproscopic History of hysterectomy History of cervical spinal surgery (~2016) Dr. Abran Deleon [place] Family History Mother Stroke Arthritis Social History Smoking and tobacco/nicotine status: never used tobacco/nicotine Alcohol intake: never Substance/Drug Use: never Household members: spouse and family Marital status: Current occupational status: retired and disabled Vitals/I&O/Wt Last Vital Signs Temp 97.8 F 07/28/24 11:17 Pulse 64 07/28/24 11:17 Resp 20 H 07/28/24 11:17 BP 159/73 07/28/24 11:17 Pulse Ox 95 07/28/24 11:17 O2 Del Method Room Air 07/28/24 11:17 O2 Flow Rate 1 07/27/24 07:47 07/28/24 07/28/24 07/28/24 06:59 14:59 22:59 Intake Total 1000 / 1750 120 / 120 Output Total 1150 / 2475 600 / 600 Balance -150 / -725 -480 / -480 Weight last 48 hrs Weight 95.4 kg Weight 94.6 kg Weight 94.6 kg Physical Exam 2 Narrative: General: No acute distress, AO x1, overall lethargic, chronically ill-appearing HEENT: PERRLA, pupils bilaterally equal and reactive, pallors not present Chest: Normal vesicular breath sounds, no added sounds, equal good air entry bilaterally CVS: S1-S2 regular, no murmurs, no tachycardia, no gallops, no rubs Abdomen: Soft, nontender, no organomegaly, bowel sounds present Neuro: Globally weak, states she is not able to lift her leg significantly off the bed. Moving bilateral upper extremities. No obvious facial deformity. Extremities bilateral knee osteoarthritis noted. Right knee joint swelling worse than the left, however no signs of surrounding cellulitis redness warmth or other changes to suggest a septic joint. Urinary Catheter Management: Garcia: Cath Placed During This Visit: yes Reason for Continuing Indwelling Catheter: Accurate Measurement of Urinary Output in Critically Ill Patients Urinary Catheter Date of Insertion: 07/24/24 Data 08/01/24 07:05 08/01/24 07:05 Micro: Microbiology 07/27/24 03:01 Blood Culture - Preliminary Blood 07/27/24 03:04 Blood Culture - Preliminary Blood NEGATIVE TO DATE 07/25/24 04:47 Blood Culture - Preliminary Blood Staphylococcus aureus S aureus M.I.C. RX --------- ------ * Ciprofloxacin <=1 S * Clindamycin 1 I * Erythromycin <=0.5 S * Levofloxacin 2 S * Linezolid >4 R * Moxifloxacin 1 S * Oxacillin 1 S * Penicillin >8 R * Rifampin <=1 S * Tetracycline >8 R * Trimethoprim/Sulfamethoxazole <=0.5/9.5 S Vancomycin 2 S Daptomycin 1 S Peripheral blood culture: 07/24/2024 : 4 of 4 positive for MSSA 07/25/2024: 2/4+ for MSSA 07/27/2024: 2 of 2 positive for Staph aureus MSSA Other data: CT/CT head wo con* [id number] IMPRESSION: 1. No acute intracranial hemorrhage or edema. 2. Minimal cerebral atrophy and small vessel disease. 3. No paranasal sinus disease. CT/CT neck wo con [id number] IMPRESSION: Unremarkable neck [place]. [place] [id number] IMPRESSION: 1. Dependent changes and atelectasis at the lung bases. 2. No pneumothorax or pneumonia. 3. No free air. 4. Diffuse soft tissue anasarca. 5. Very small amount of residual free fluid in the pelvis. 6. Garcia catheter in the urinary bladder. 7. Hepatic steatosis and prior cholecystectomy. 8. Cardiomegaly. Heart appears larger than it did on 06/07/2024. XR/XR chest 1V portable [id number] IMPRESSION: No acute findings. MR/MR lumbar spine wo con* [id number] IMPRESSION: FINDINGS: Bones/joints: There are degenerative changes throughout the visualized spine including marginal osteophyte formations, endplate degenerative changes, and facet arthropathy. Multilevel disc space narrowing. Grade 1 degenerative anterolisthesis of L4 on L5 appears similar to the prior CT scan. Spinal cord: The conus ends normally at the T12-L1 level. No abnormal signal is seen within the conus or the intrathecal nerve roots. L1-L2: No significant disc bulge or herniation. No severe spinal canal stenosis. No significant neural foraminal narrowing. L2-L3: There is a broad-based disc osteophyte complex which results in moderate severe canal stenosis. Cauda equina are crowded and/or compressed. L3-L4: There is a broad-based disc osteophyte complex resulting in moderate to severe canal stenosis.Cauda equina are crowded and/or compressed. Mild narrowing of the right neural foramen. L4-L5: There is a broad-based disc osteophyte complex with severe canal stenosis and compression of the cauda equina. Moderate to severe narrowing of the left neural foramen and moderate narrowing of the right neural foramen. L5-S1: Severe disc desiccation and narrowing. Canal and neural foramina are within normal limits in caliber. Soft tissues: There is edema in the subcutaneous soft tissues of the lower thoracic and lumbar spine. Small synovial cyst posterior to the lower lumbar facet joints. Multilevel, multifactorial degenerative changes are present throughout the lumbar spine with varying degrees of canal and neural foramina stenosis as described in detail above. The canal stenosis is severe at the L4-L5 level with compression of the cauda equina. Canal stenosis is moderate to severe at the L2-L3 and L3-L4 levels where the cauda equina are crowded and/or compressed. CT/CT lumbar spine wo con* [id number] IMPRESSION: 1. No acute fractures identified. 2. Grade 1 anterolisthesis of L4, unchanged. 3. Mild progression of stenosis and facet joint arthropathy since 2019. 4. L4-5: Severe central, bilateral subarticular recess and foraminal stenosis. Severe facet joint arthropathy. 5. L5-S1: Mild central with moderate bilateral subarticular recess and mild foraminal stenosis. 6. L2-3: Moderate central, bilateral subarticular recess and mild foraminal stenosis. 7. L3-4: Severe central, bilateral subarticular recess and moderate foraminal stenosis. A&P Assessment and plan (1) Staphylococcus aureus bacteremia: (2) Atrial fibrillation: (3) Lumbar stenosis with neurogenic claudication: (4) PICC line infection: Plan HPI as noted above. Briefly 64-year-old lady who had a PICC line placement a few weeks ago to enable TPN for failure to thrive after gastric surgery a year ago presented to the hospital with cauda equina syndrome and radiculopathy. Noted to have low-grade fever and leukocytosis upon admission, blood cultures eventually returning positive for MSSA between 07/24/2024 to 07/27/2024. Source of infection may have been PICC line related. No other obvious source on extensive evaluation. CT of the chest abdomen and pelvis without any gross source. MRI of the lumbar spine without any epidural abscess discitis or osteomyelitis. UA unremarkable. Chest x-ray without consolidation. PICC line removed 07/25/2024. Patient was on treatment with linezolid 600 mg IV every 24 hours Agree with switch to nafcillin for organism directed therapy for MSSA. Cefazolin 2 g IV every 8 hours may be an alternative if less frequent dosing desired. Repeat blood cultures to ascertain clearance. TTE without gross vegetations Plan to treat patient with 6 weeks of organism directed therapy for endovascular infection. Can defer DEEPAK for now if blood cultures clear after switching to nafcillin/cefazolin and removal of PICC line as unlikely to change clinical management. Currently no peripheral stigmata of endocarditis. Wait at least until 48 to 72 hours after clearance of blood cultures to place another PICC line. Will follow Consult Attestations 2 Medical Necessity Statement: Per admitting Coding Level of Care Code Acute Code for Chg Fwd High MDM includes number and complexity of problems actively addressed during encounter, amount and/or complexity of data reviewed/ordered and described risk of complication, morbidity or mortality of management as documented Diagnoses Staphylococcus aureus bacteremia R78.81; B95.61 Atrial fibrillation I48.91 Lumbar stenosis with neurogenic claudication M48.062 PICC line infection T80.219A
[2024-07-28] MEDS: oxyCODONE 5 mg IR Tab/Cap PO (18:01)
[2024-07-29] VITALS (8 sets, daily range): BP systolic 162–174; BP diastolic 66–82; PULSE 70–81; RESP 20–27; TEMP 36.6–37.8; O2SAT 92–100
[2024-07-29] MEDS: ceFAZolin 2,000 mg SDV 2000 MG IVP ×3 (01:26→17:30)
[2024-07-29] MEDS: enoxaparin 100 mg/mL Syringe SUBCUT ×2 (01:26→14:26)
[2024-07-29] MEDS: sodium chloride 0.9% 1,000 ML 50 ML IV ×2 (01:30→21:39)
[2024-07-29] MEDS: oxyCODONE 5 mg IR Tab/Cap PO (06:05)
[2024-07-29 06:10] LABS: Basophils % 0.2 %; Eosinophils % 0.3 %; Lymphocytes % 10.1 %; Mean Corpuscular HGB Conc 33.6 g/dL (30-55); Mean Corpuscular Hemoglobin 30.4 pg (27-33); Mean Corpuscular Volume 90.6 fl (85-98); Mean Platelet Volume 11.1 fL (7.4-10.4); Monocytes # 0.9 10^3/uL (0.2-0.9); Monocytes % 8.3 %; Neutrophils # 8.21 10^3/uL (1.8-7.7); Neutrophils % 79.6 %; Nucleated Red Blood Cells % 0 %; Platelet Count 243 10^3/cmm (157-399); Red Blood Count 3.09 10^6/uL (3.85-5.65); Red Cell Distribution Width 12.7 % (12.1-15.1)
[2024-07-29 06:30] LABS: Alanine Aminotransferase 31 U/L (0-33); Albumin Level 2.4 g/dL (3.5-5.2); Alkaline Phosphatase 214 U/L (35-105); Anion Gap 11.3 (5-19); Aspartate Amino Transferase 50 U/L (0-32); Blood Urea Nitrogen 14 mg/dL (8-23); Calcium 9.9 mg/dL (8.5-10.5); Carbon Dioxide 26 mmol/L (22-29); Chloride 97 mmol/L (98-107); Creatinine Clr Calc Pharmacy 81.3477; Globulin 2.4 g/dL (1.3-4.6); Glomerular Filtration Rate 123.8 mL/min (90-130); Glucose 117 mg/dL (65-115); Osmolality Calculated 274 mOsm/kg (285-295); Potassium 3.3 mmol/L (3.5-5.1); Sodium 131 mmol/L (136-145); Total Bilirubin 0.9 mg/dL (0.15-1.2); Total Protein 4.8 g/dL (6.6-8.7)
[2024-07-29 06:32] LABS: C Reactive Protein 129.9 mg/L (0.0-4.9)
[2024-07-29 06:36] LABS: Procalcitonin 0.37 ng/mL (0-0.5)
[2024-07-29] MEDS: gabapentin 400 mg Capsule PO ×3 (08:15→21:39)
[2024-07-29] MEDS: metoprolol tartrate 25 mg Tablet PO ×2 (08:16→21:39)
[2024-07-29] MEDS: sodium chloride 1 gm Tablet PO ×2 (08:16→17:30)
[2024-07-29] MEDS: levothyroxine 137 mcg Tablet PO (08:16)
[2024-07-29] MEDS: potassium chloride ER 20 mEq Tablet 40 MEQ PO (09:59)
--- NOTE | 2024-07-29 12:05 | PC.SOCIAL ---
IMM updated IMM dated and initialed, copy given to patient and copy placed in chart.
--- NOTE | 2024-07-29 15:16 | P.PN_ITS ---
Subjective 2 Subjective: Patient was seen this morning, she is alert and oriented x 2, follows all commands, does report an improving appetite, no fevers overnight, no chills, discussed watching her blood cultures today continue antibiotics, Vitals/I&O/Wt Last Vital Signs Temp 99.2 F 07/29/24 11:59 Pulse 75 07/29/24 11:59 Resp 20 H 07/29/24 11:59 BP 172/66 07/29/24 11:59 Pulse Ox 92 07/29/24 11:59 O2 Del Method Room Air 07/29/24 11:59 O2 Flow Rate 1 07/27/24 07:47 07/29/24 07/29/24 07/29/24 06:59 14:59 22:59 Intake Total 555 / 1360 480 / 480 Output Total 500 / 1650 1000 / 1000 Balance 55 / -290 -520 / -520 Weight last 48 hrs Weight 94.8 kg Weight 95.4 kg Physical Exam 2 Const: COMMON NORMALS: no acute distress and patient oriented x3 Resp: COMMON NORMALS: normal respiratory effort, No retractions, No use of accessory muscles and clear to auscultation bilaterally AUSCULTATION: clear to auscultation bilaterally Cardio: COMMON NORMALS: regular rate, regular rhythm, S1 normal heart sound present and S2 normal heart sound present RATE: regular rate RHYTHM: r egular rhythm HEART SOUNDS: S1 normal heart sound present and S2 normal heart sound present GI: COMMON NORMALS: Normal to inspection, nondistended, normoactive bowel sounds present and non-tender Extremity: COMMON NORMALS: no pedal edema Neuro: COMMON NORMALS: patient oriented x3 Psych: COMMON NORMALS: mental status grossly normal Urinary Catheter Management: Garcia: Cath Placed During This Visit: yes Reason for Continuing Indwelling Catheter: Accurate Measurement of Urinary Output in Critically Ill Patients Urinary Catheter Date of Insertion: 07/24/24 Data 07/29/24 05:40 07/29/24 05:40 Micro: Microbiology 07/27/24 03:01 Blood Culture - Preliminary Blood Staphylococcus aureus 07/29/24 05:40 Blood Culture - Preliminary Blood SPECIMEN COLLECTED 07/29/24 05:40 Blood Culture - Preliminary Blood SPECIMEN COLLECTED A&P Assessment and plan (1) Staphylococcus aureus bacteremia: - MSSA bacteremia -Source is likely PICC line that was placed in June 2024 for feeding, poor appetite after her gastric bypass surgery June 2023 -PICC line has been removed -Transthoracic cardiac echocardiogram, no valvular vegetations, no reported IV drug use -But will do CT chest abdomen pelvis no acute findings -She did complain of back pain, she has had a lumbar MRI no evidence of discitis -First 3 blood cultures positive for MSSA species -Continue cefazolin -Repeat blood cultures so far pending -Will consider transesophageal echocardiogram based on clinical progress -Will eventually PICC line placed for long-term IV antibiotics (2) Back pain: MR/MR lumbar spine wo con* [id number] IMPRESSION: Multilevel, multifactorial degenerative changes are present throughout the lumbar spine with varying degrees of canal and neural foramina stenosis as described in detail above. The canal stenosis is severe at the L4-L5 level with compression of the cauda equina. Canal stenosis is moderate to severe at the L2-L3 and L3-L4 levels where the cauda equina are crowded and/or compressed. -Orthopedic service has been consulted -For now given her MSSA bacteremia surgical intervention is on hold (3) Atrial fibrillation: Continue p.o. metoprolol Therapeutic Lovenox (4) Protein calorie malnutrition: - Used to get infusions from peripheral nutrition through her PICC line 7 PM to 7 AM -Patient had a gastric bypass June 2023, had poor appetite since then, and then had PICC line placed roughly June 2024, due to poor appetite, now removed -Will consult dietary -Encourage p.o. intake -If she continues to have poor oral intake will consider PEG tube placement Plan Past history of DVT, currently on low-dose Eliquis at home. Changed to Lovenox secondary to A-fib, and potential need for a surgical procedure. Monitor for risk of bleeding Other medical problems as outlined in past medical history Hyponatremia, likely secondary to poor oral intake, IV fluids, salt tablets, monitor serum sodium Acute encephalopathy, monitor mentation closely, monitor serum sodium levels, CT head no acute findings back to baseline Full code currently Lovenox for DVT prophylaxis Plan for today switch back to Eliquis, start therapeutic Lovenox continue IV fluids Attestations 2 Medical Necessity Statement*: Patient requires hospitalization for MSSA bacteremia Diagnoses Staphylococcus aureus bacteremia R78.81; B95.61 Back pain M54.9 Atrial fibrillation I48.91 Protein calorie malnutrition E46
--- NOTE | 2024-07-29 16:33 | P.PN_ITS ---
Subjective 2 Subjective: Infectious disease progress note. Tmax 100 Fahrenheit today. Leukocytosis appears to be improving. Patient currently on cefazolin 2 g IV every 8 hours. Complains of generalized weakness. Mentation appears to be better today. She is answering questions though is slow to respond. Medications: Reviewed: Yes Vitals/I&O/Wt Last Vital Signs Temp 99.2 F 07/29/24 11:59 Pulse 75 07/29/24 11:59 Resp 20 H 07/29/24 11:59 BP 172/66 07/29/24 11:59 Pulse Ox 92 07/29/24 11:59 O2 Del Method Room Air 07/29/24 11:59 O2 Flow Rate 1 07/27/24 07:47 07/29/24 07/29/24 07/29/24 06:59 14:59 22:59 Intake Total 555 / 1360 480 / 480 Output Total 500 / 1650 1000 / 1000 Balance 55 / -290 -520 / -520 Weight last 48 hrs Weight 94.8 kg Weight 95.4 kg Physical Exam 2 Narrative: General: No acute distress, AO x3, overall lethargic, chronically ill-appearing HEENT: PERRLA, pupils bilaterally equal and reactive, pallors not present Chest: Normal vesicular breath sounds, no added sounds, equal good air entry bilaterally CVS: S1-S2 regular, no murmurs, no tachycardia, no gallops, no rubs Abdomen: Soft, nontender, no organomegaly, bowel sounds present Neuro: Globally weak, states she is not able to lift her leg significantly off the bed. Moving bilateral upper extremities. No obvious facial deformity. Extremities bilateral knee osteoarthritis noted. Right knee joint swelling worse than the left, however no signs of surrounding cellulitis redness warmth or other changes to suggest a septic joint. Urinary Catheter Management: Garcia: Cath Placed During This Visit: yes Reason for Continuing Indwelling Catheter: Accurate Measurement of Urinary Output in Critically Ill Patients Urinary Catheter Date of Insertion: 07/24/24 Data 08/01/24 07:05 08/01/24 07:05 Micro: Microbiology 07/27/24 03:01 Blood Culture - Preliminary Blood Staphylococcus aureus 07/29/24 05:40 Blood Culture - Preliminary Blood SPECIMEN COLLECTED 07/29/24 05:40 Blood Culture - Preliminary Blood SPECIMEN COLLECTED 07/27/24 03:01 Blood Culture - Preliminary Blood 07/27/24 03:04 Blood Culture - Preliminary Blood NEGATIVE TO DATE 07/25/24 04:47 Blood Culture - Preliminary Blood Staphylococcus aureus S aureus M.I.C. RX --------- ------ * Ciprofloxacin <=1 S * Clindamycin 1 I * Erythromycin <=0.5 S * Levofloxacin 2 S * Linezolid >4 R * Moxifloxacin 1 S * Oxacillin 1 S * Penicillin >8 R * Rifampin <=1 S * Tetracycline >8 R * Trimethoprim/Sulfamethoxazole <=0.5/9.5 S Vancomycin 2 S Daptomycin 1 S Peripheral blood culture: 07/24/2024 : 4 of 4 positive for MSSA 07/25/2024: 2/4+ for MSSA 07/27/2024: 2 of 2 positive for Staph aureus MSSA 07/29/2024: Currently pending A&P Assessment and plan (1) Staphylococcus aureus bacteremia: (2) Atrial fibrillation: (3) Lumbar stenosis with neurogenic claudication: (4) PICC line infection: Plan Please see consult note for details with regards to HPI Briefly 64-year-old lady who had a PICC line placement a few weeks ago to enable TPN for failure to thrive after gastric surgery a year ago presented to the hospital with cauda equina syndrome and radiculopathy. Noted to have low-grade fever and leukocytosis upon admission, blood cultures eventually returning positive for MSSA between 07/24/2024 to 07/27/2024. Source of infection may have been PICC line related. No other obvious source on extensive evaluation. CT of the chest abdomen and pelvis without any gross source. MRI of the lumbar spine without any epidural abscess discitis or osteomyelitis. UA unremarkable. Chest x-ray without consolidation. PICC line removed 07/25/2024. Patient was on treatment with linezolid 600 mg IV every 24 hours Agree with switch to nafcillin for organism directed therapy for MSSA. Cefazolin 2 g IV every 8 hours may be an alternative if less frequent dosing desired. Repeat blood cultures to ascertain clearance. TTE without gross vegetations Plan to treat patient with 6 weeks of organism directed therapy for endovascular infection. Can defer DEEPAK for now if blood cultures clear after switching to nafcillin/cefazolin and removal of PICC line as unlikely to change clinical management. Currently no peripheral stigmata of endocarditis. Wait at least until 48 to 72 hours after clearance of blood cultures to place another PICC line. 07/29/2024 Tmax 100 Fahrenheit. Blood cultures taken this morning, will await results to a certain clearance. Continue cefazolin 2 g IV every 8 hours. Plan treatment duration for 6 weeks. Patient is planned to go to senior living facility likely after discharge. If cultures remain persistently positive, will need DEEPAK. Closely monitor for now. Attestations 2 Medical Necessity Statement*: Per admitting Coding Level of Care Code Acute Code for Chg Fwd High MDM includes number and complexity of problems actively addressed during encounter, amount and/or complexity of data reviewed/ordered and described risk of complication, morbidity or mortality of management as documented Diagnoses Staphylococcus aureus bacteremia R78.81; B95.61 Atrial fibrillation I48.91 Lumbar stenosis with neurogenic claudication M48.062 PICC line infection T80.219A
[2024-07-30] VITALS (9 sets, daily range): BP systolic 166–184; BP diastolic 70–84; PULSE 71–81; RESP 16–26; TEMP 36.5–37.2; O2SAT 91–100
[2024-07-30] MEDS: ceFAZolin 2,000 mg SDV 2000 MG IVP ×3 (03:12→17:20)
[2024-07-30 04:51] LABS: Basophils % 0.4 %; Eosinophils % 0.3 %; Hematocrit 28.4 % (36-47); Lymphocytes # 1.1 10^3/uL (0.8-4.8); Lymphocytes % 9.7 %; Mean Corpuscular HGB Conc 32.7 g/dL (30-55); Mean Corpuscular Hemoglobin 30.3 pg (27-33); Mean Corpuscular Volume 92.5 fl (85-98); Mean Platelet Volume 10.8 fL (7.4-10.4); Monocytes # 0.8 10^3/uL (0.2-0.9); Monocytes % 7.6 %; Neutrophils # 8.95 10^3/uL (1.8-7.7); Neutrophils % 80.6 %; Nucleated Red Blood Cells % 0 %; Platelet Count 264 10^3/cmm (157-399); Red Blood Count 3.07 10^6/uL (3.85-5.65); Red Cell Distribution Width 12.7 % (12.1-15.1); White Blood Count 11.08 10^3/uL (3.29-11.43)
[2024-07-30 05:22] LABS: C Reactive Protein 105.8 mg/L (0.0-4.9)
[2024-07-30 05:23] LABS: Alanine Aminotransferase 35 U/L (0-33); Albumin Level 2.1 g/dL (3.5-5.2); Alkaline Phosphatase 277 U/L (35-105); Anion Gap 12.1 (5-19); Aspartate Amino Transferase 77 U/L (0-32); Blood Urea Nitrogen 12 mg/dL (8-23); Carbon Dioxide 23 mmol/L (22-29); Chloride 98 mmol/L (98-107); Creatinine Clr Calc Pharmacy 82.1003; Glomerular Filtration Rate 123.8 mL/min (90-130); Glucose 100 mg/dL (65-115); Osmolality Calculated 268 mOsm/kg (285-295); Potassium 4.1 mmol/L (3.5-5.1); Procalcitonin 0.27 ng/mL (0-0.5); Sodium 129 mmol/L (136-145); Total Bilirubin 0.7 mg/dL (0.15-1.2); Total Protein 5.1 g/dL (6.6-8.7)
[2024-07-30] MEDS: oxyCODONE 5 mg IR Tab/Cap PO ×2 (06:15→20:09)
[2024-07-30] MEDS: sodium chloride 1 gm Tablet PO ×2 (08:48→17:20)
[2024-07-30] MEDS: apixaban 5 mg Tablet 2.5 MG PO ×2 (08:48→20:03)
[2024-07-30] MEDS: levothyroxine 137 mcg Tablet PO (08:48)
[2024-07-30] MEDS: gabapentin 400 mg Capsule PO ×3 (08:48→20:03)
[2024-07-30] MEDS: docusate sodium 100 mg Capsule 200 MG PO (08:48)
[2024-07-30] MEDS: metoprolol tartrate 25 mg Tablet PO ×2 (08:48→20:03)
--- NOTE | 2024-07-30 17:16 | P.PN_ITS ---
Subjective 2 Subjective: Patient was seen this morning, she is alert to person, to place, not to time she follows all commands, no acute events overnight, she does tell me that her appetite is improving, denies any pain complaints, Vitals/I&O/Wt Last Vital Signs Temp 98.0 F 07/30/24 16:00 Pulse 76 07/30/24 16:00 Resp 25 H 07/30/24 16:00 BP 177/72 07/30/24 16:00 Pulse Ox 96 07/30/24 16:00 O2 Del Method Room Air 07/30/24 16:00 O2 Flow Rate 1 07/27/24 07:47 07/30/24 07/30/24 07/30/24 06:59 14:59 22:59 Intake Total 300 / 1980 462 / 462 Output Total 1260 / 2760 750 / 750 450 / 1200 Balance -960 / -780 -288 / -288 -450 / -738 Weight last 48 hrs Weight 96.5 kg Weight 94.8 kg Physical Exam 2 Const: COMMON NORMALS: no acute distress ORIENTATION/CONSCIOUSNESS: Yes awake, Yes oriented to person and Yes oriented to place; not oriented to time Resp: COMMON NORMALS: normal respiratory effort, No retractions, No use of accessory muscles and clear to auscultation bilaterally AUSCULTATION: clear to auscultation bilaterally Cardio: COMMON NORMALS: regular rate, regular rhythm, S1 normal heart sound present and S2 normal heart sound present RATE: regular rate RHYTHM: r egular rhythm HEART SOUNDS: S1 normal heart sound present and S2 normal heart sound present GI: COMMON NORMALS: Normal to inspection, nondistended, normoactive bowel sounds present and non-tender Extremity: COMMON NORMALS: no pedal edema Neuro: SENSORIUM/ORIENTATION: Yes oriented to person, Yes oriented to place and No oriented to time Psych: COMMON NORMALS: mental status grossly normal Urinary Catheter Management: Garcia: Cath Placed During This Visit: yes Reason for Continuing Indwelling Catheter: Accurate Measurement of Urinary Output in Critically Ill Patients Urinary Catheter Date of Insertion: 07/24/24 Data 07/30/24 03:46 07/30/24 03:46 Micro: Microbiology 07/29/24 05:40 Blood Culture - Preliminary Blood NEGATIVE TO DATE 07/29/24 05:40 Blood Culture - Preliminary Blood NEGATIVE TO DATE A&P Assessment and plan (1) Staphylococcus aureus bacteremia: - MSSA bacteremia -Source is likely PICC line that was placed in June 2024 for feeding, poor appetite after her gastric bypass surgery June 2023 -PICC line has been removed -Transthoracic cardiac echocardiogram, no valvular vegetations, no reported IV drug use -But will do CT chest abdomen pelvis no acute findings -She did complain of back pain, she has had a lumbar MRI no evidence of discitis -First 3 blood cultures positive for MSSA species -Continue cefazolin -Repeat blood cultures so far pending -Will consider transesophageal echocardiogram based on clinical progress -Will eventually PICC line placed for long-term IV antibiotics (2) Back pain: MR/MR lumbar spine wo con* [id number] IMPRESSION: Multilevel, multifactorial degenerative changes are present throughout the lumbar spine with varying degrees of canal and neural foramina stenosis as described in detail above. The canal stenosis is severe at the L4-L5 level with compression of the cauda equina. Canal stenosis is moderate to severe at the L2-L3 and L3-L4 levels where the cauda equina are crowded and/or compressed. -Orthopedic service has been consulted -For now given her MSSA bacteremia surgical intervention is on hold (3) Atrial fibrillation: Continue p.o. metoprolol Therapeutic Lovenox (4) Protein calorie malnutrition: - Used to get infusions from peripheral nutrition through her PICC line 7 PM to 7 AM -Patient had a gastric bypass June 2023, had poor appetite since then, and then had PICC line placed roughly June 2024, due to poor appetite, now removed -Will consult dietary -Encourage p.o. intake -If she continues to have poor oral intake will consider PEG tube placement Plan Past history of DVT, currently on low-dose Eliquis at home. Changed to Lovenox secondary to A-fib, and potential need for a surgical procedure. Monitor for risk of bleeding Other medical problems as outlined in past medical history Hyponatremia, likely secondary to poor oral intake, IV fluids, salt tablets, monitor serum sodium Acute encephalopathy, monitor mentation closely, monitor serum sodium levels, CT head no acute findings back to baseline Full code currently Lovenox for DVT prophylaxis Plan for today stop fluids, monitor repeat blood cultures, blood pressure control Attestations 2 Medical Necessity Statement*: Patient requires hospitalization for MSSA bacteremia requiring IV antibiotics Diagnoses Staphylococcus aureus bacteremia R78.81; B95.61 Back pain M54.9 Atrial fibrillation I48.91 Protein calorie malnutrition E46
[2024-07-30] MEDS: amlodipine 10 mg Tablet PO (17:53)
[2024-07-31] VITALS (12 sets, daily range): BP systolic 152–169; BP diastolic 72–86; PULSE 47–88; RESP 18–23; TEMP 36.5–36.9; O2SAT 92–99
[2024-07-31] MEDS: ceFAZolin 2,000 mg SDV 2000 MG IVP ×3 (02:06→17:16)
[2024-07-31] MEDS: oxyCODONE 5 mg IR Tab/Cap PO ×3 (03:39→20:30)
--- NOTE | 2024-07-31 04:24 | PC.NURSE ---
Patient pulled IV out and stated that she wanted to go home and did not want anymore medications. Patient was educated on the importance of staying in hospital to be treated.
[2024-07-31 06:48] LABS: Basophils % 0.3 %; Eosinophils # 0.1 10^3/uL (0.0-0.8); Eosinophils % 0.6 %; Lymphocytes % 9.5 %; Mean Corpuscular HGB Conc 31.3 g/dL (30-55); Mean Corpuscular Hemoglobin 29.2 pg (27-33); Mean Corpuscular Volume 93.2 fl (85-98); Mean Platelet Volume 10.7 fL (7.4-10.4); Monocytes # 0.7 10^3/uL (0.2-0.9); Monocytes % 6.2 %; Neutrophils # 8.97 10^3/uL (1.8-7.7); Neutrophils % 82.3 %; Nucleated Red Blood Cells % 0 %; Platelet Count 295 10^3/cmm (157-399); Red Blood Count 3.22 10^6/uL (3.85-5.65); Red Cell Distribution Width 12.6 % (12.1-15.1); White Blood Count 10.89 10^3/uL (3.29-11.43)
[2024-07-31 07:11] LABS: Alanine Aminotransferase 21 U/L (0-33); Albumin Level 2.1 g/dL (3.5-5.2); Alkaline Phosphatase 269 U/L (35-105); Anion Gap 9.6 (5-19); Aspartate Amino Transferase 47 U/L (0-32); Blood Urea Nitrogen 11 mg/dL (8-23); Calcium 10.5 mg/dL (8.5-10.5); Carbon Dioxide 25 mmol/L (22-29); Chloride 97 mmol/L (98-107); Creatinine Clr Calc Pharmacy 82.9857; Globulin 3.2 g/dL (1.3-4.6); Glomerular Filtration Rate 160.2 mL/min (90-130); Glucose 99 mg/dL (65-115); Osmolality Calculated 265 mOsm/kg (285-295); Potassium 3.6 mmol/L (3.5-5.1); Sodium 128 mmol/L (136-145); Total Bilirubin 0.6 mg/dL (0.15-1.2); Total Protein 5.3 g/dL (6.6-8.7)
[2024-07-31] MEDS: amlodipine 10 mg Tablet PO (08:28)
[2024-07-31] MEDS: metoprolol tartrate 25 mg Tablet PO ×2 (08:28→20:21)
[2024-07-31] MEDS: apixaban 5 mg Tablet 2.5 MG PO (08:28)
[2024-07-31] MEDS: levothyroxine 137 mcg Tablet PO (08:28)
[2024-07-31] MEDS: sodium chloride 1 gm Tablet PO (08:28)
[2024-07-31] MEDS: gabapentin 400 mg Capsule PO ×3 (08:29→20:21)
--- NOTE | 2024-07-31 09:36 | USR_ITS ---
PROCEDURE INFORMATION: Exam: US Duplex Left Upper Extremity Veins, Limited Exam date and time: 07/31/2024 3:22 PM Age: 64 years old Clinical indication: Edema, localized; Upper extremity, left; Additional info: Assess for dvt TECHNIQUE: Imaging protocol: Real-time duplex ultrasound of the left extremity with 2-D tillman scale, color Doppler flow and spectral waveform analysis including responses to compression and other maneuvers (when performed) with image documentation. Limited exam focused on the left upper extremity veins. COM[place] [id number] 07/27/2024 3:30 PM FINDINGS: Left deep veins: Unremarkable. Axillary and brachial veins are patent throughout without thrombus. Normal Doppler waveforms. Normal compressibility and/or augmentation response. Visualized internal jugular and subclavian veins are patent. Superficial veins: Unremarkable. Visualized cephalic and basilic veins are patent without thrombus. Soft tissues: Unremarkable. US/[place] [id number] IMPRESSION: No evidence of deep vein thrombosis.
--- NOTE | 2024-07-31 11:03 | PC.SOCIAL ---
IMM Updated Updated pt on IMM. No questions voiced. Provided pt a copy. Initialed, dated, & timed copy in chart.
--- NOTE | 2024-07-31 11:29 | XR_ITS ---
WS: [id number] PORTABLE CHEST HISTORY: Post PICC insertion COMPARISON: 07/24/2024 Right-sided PICC line with tip terminating near the cavoatrial junction. Lung volumes are decreased. No pleural effusion or pneumothorax. Cardiac size: Normal. Mediastinum/Aorta: Widened mediastinum due to position. No osseous abnormality seen. XR/XR chest 1V portable [id number] IMPRESSION: 1. Satisfactory RIGHT PICC line.
--- NOTE | 2024-07-31 12:45 | PICC.NOTE ---
Single lumen PICC placed to right basilic vein. Referred to vascular access nurse for PICC placement due to need for IV antibiotics. Risks and benefits discussed and informed consent obtained from pt , Jack. Right arm assessed with right basilic vein measuring 5.0 mm, straight, and apparent best choice for placement. Using sterile technique and MST, right basilic vein accessed x 1 stick. Mid-arm circumference measured 10 cm from right AC 34 cm. Trimmed cath 42 cm with 1 cm external length noted. CXR shows tip in cavoatrial junction, in good position for use per radiologist. Line secured with stat-lock. Insertion site covered with Biopatch and TSM. Report given to bedside nurse, ELIE Mattson.
--- NOTE | 2024-07-31 13:45 | P.PN_ITS ---
Subjective 2 Subjective: Patient was seen this morning, no fevers overnight, no chills, no cough, denies any pain complaints, she does tell me that she feels unwell today Vitals/I&O/Wt Last Vital Signs Temp 97.8 F 07/31/24 11:42 Pulse 76 07/31/24 11:42 Resp 18 07/31/24 11:42 BP 152/73 07/31/24 11:42 Pulse Ox 92 07/31/24 11:42 O2 Del Method Room Air 07/31/24 11:42 O2 Flow Rate 1 07/27/24 07:47 07/30/24 07/31/24 07/31/24 22:59 06:59 14:59 Intake Total 1111.670 / 1573.670 240 / 1813.670 Output Total 750 / 1500 851 / 2351 700 / 700 Balance 361.670 / 73.670 -611 / -537.330 -700 / -700 Weight last 48 hrs Weight 98.5 kg Weight 96.5 kg Physical Exam 2 Const: COMMON NORMALS: no acute distress and patient oriented x3 Resp: COMMON NORMALS: normal respiratory effort, No retractions, No use of accessory muscles and clear to auscultation bilaterally AUSCULTATION: clear to auscultation bilaterally Cardio: COMMON NORMALS: regular rate, regular rhythm, S1 normal heart sound present and S2 normal heart sound present RATE: regular rate RHYTHM: r egular rhythm HEART SOUNDS: S1 normal heart sound present and S2 normal heart sound present GI: COMMON NORMALS: Normal to inspection, nondistended, normoactive bowel sounds present and non-tender Extremity: COMMON NORMALS: no pedal edema Neuro: COMMON NORMALS: patient oriented x3 Psych: COMMON NORMALS: mental status grossly normal Urinary Catheter Management: Garcia: Cath Placed During This Visit: yes Reason for Continuing Indwelling Catheter: Accurate Measurement of Urinary Output in Critically Ill Patients Urinary Catheter Date of Insertion: 07/24/24 Data 07/31/24 05:48 07/31/24 05:48 A&P Assessment and plan (1) Staphylococcus aureus bacteremia: - MSSA bacteremia -Source is likely PICC line that was placed in June 2024 for feeding, poor appetite after her gastric bypass surgery June 2023 -PICC line has been removed -Transthoracic cardiac echocardiogram, no valvular vegetations, no reported IV drug use -But will do CT chest abdomen pelvis no acute findings -She did complain of back pain, she has had a lumbar MRI no evidence of discitis -First 3 blood cultures positive for MSSA species ? Full set of blood cultures from 05/29/2024 so far negative -Continue cefazolin -Repeat blood cultures so far pending -Place PICC line today (2) Back pain: MR/MR lumbar spine wo con* [id number] IMPRESSION: Multilevel, multifactorial degenerative changes are present throughout the lumbar spine with varying degrees of canal and neural foramina stenosis as described in detail above. The canal stenosis is severe at the L4-L5 level with compression of the cauda equina. Canal stenosis is moderate to severe at the L2-L3 and L3-L4 levels where the cauda equina are crowded and/or compressed. -Orthopedic service has been consulted -For now given her MSSA bacteremia surgical intervention is on hold (3) Atrial fibrillation: Continue p.o. metoprolol Continue Eliquis 5 twice daily (4) Protein calorie malnutrition: - Used to get infusions from peripheral nutrition through her PICC line 7 PM to 7 AM -Patient had a gastric bypass June 2023, had poor appetite since then, and then had PICC line placed roughly June 2024, due to poor appetite, now removed -Will consult dietary -Encourage p.o. intake -If she continues to have poor oral intake will consider PEG tube placement Plan Past history of DVT, currently on low-dose Eliquis at home. Changed to Lovenox secondary to A-fib, and potential need for a surgical procedure. Monitor for risk of bleeding Other medical problems as outlined in past medical history Hyponatremia, likely secondary to poor oral intake, IV fluids, salt tablets, monitor serum sodium Acute encephalopathy, monitor mentation closely, monitor serum sodium levels, CT head no acute findings back to baseline, resolved Full code currently Lovenox for DVT prophylaxis Plan for today oral hydration therapy, continue IV cefazolin, remove Garcia catheter, place PICC line Attestations 2 Medical Necessity Statement*: Patient requires hospitalization for Staph aureus bacteremia Diagnoses Staphylococcus aureus bacteremia R78.81; B95.61 Back pain M54.9 Atrial fibrillation I48.91 Protein calorie malnutrition E46
[2024-07-31] MEDS: apixaban 5 mg Tablet PO (20:21)
[2024-07-31] MEDS: trazodone 100 mg Tablet PO (20:21)
[2024-08-01] VITALS (10 sets, daily range): BP systolic 132–159; BP diastolic 64–79; PULSE 69–86; RESP 14–23; TEMP 36.7–37.6; O2SAT 92–95
[2024-08-01] MEDS: oxyCODONE 5 mg IR Tab/Cap PO ×2 (00:29→06:40)
[2024-08-01] MEDS: acetaminophen 325 mg Tablet 650 MG PO ×2 (00:29→06:40)
[2024-08-01] MEDS: ceFAZolin 2,000 mg SDV 2000 MG IVP ×3 (01:06→21:08)
--- NOTE | 2024-08-01 04:54 | PC.NURSE ---
The patient requested twice to go to the bathroom, requesting nurse get her up OOB to the BR. The nurse placed a commode at bedside to attempt to get patient OOB. The patient was unable to move her legs to assist with getting OOB. When the nurse and the IMMIGRATION COORDINATOR attempted to sit her up on the bedside the patient would scream out in pain and tell them to wait but was not able to even tolerate sitting up at the bedside. Again the patient requested to get up to the BR with 2 nurses present but was unable to move legs or assist at all to even sit at the bedside. The nurse told the patient that she would have to use the bedpan if she could not get up and the patient said, I guess I'll have to since you refuse to let me get up.
[2024-08-01 07:17] LABS: Basophils % 0.3 %; Eosinophils # 0.1 10^3/uL (0.0-0.8); Eosinophils % 0.6 %; Hematocrit 29.9 % (36-47); Lymphocytes # 0.9 10^3/uL (0.8-4.8); Lymphocytes % 8.9 %; Mean Corpuscular HGB Conc 31.8 g/dL (30-55); Mean Corpuscular Hemoglobin 29.5 pg (27-33); Mean Corpuscular Volume 92.9 fl (85-98); Monocytes # 0.6 10^3/uL (0.2-0.9); Neutrophils # 8.56 10^3/uL (1.8-7.7); Neutrophils % 83.2 %; Nucleated Red Blood Cells % 0 %; Platelet Count 262 10^3/cmm (157-399); Red Blood Count 3.22 10^6/uL (3.85-5.65); Red Cell Distribution Width 12.6 % (12.1-15.1); White Blood Count 10.29 10^3/uL (3.29-11.43)
[2024-08-01 07:31] LABS: Anion Gap 11.4 (5-19); Blood Urea Nitrogen 11 mg/dL (8-23); Calcium 10.4 mg/dL (8.5-10.5); Carbon Dioxide 26 mmol/L (22-29); Chloride 97 mmol/L (98-107); Creatinine Clr Calc Pharmacy 77.8945; Glomerular Filtration Rate 123.8 mL/min (90-130); Glucose 106 mg/dL (65-115); Osmolality Calculated 272 mOsm/kg (285-295); Potassium 3.4 mmol/L (3.5-5.1); Sodium 131 mmol/L (136-145)
[2024-08-01] MEDS: levothyroxine 137 mcg Tablet PO (08:28)
[2024-08-01] MEDS: gabapentin 400 mg Capsule PO ×2 (08:28→21:08)
[2024-08-01] MEDS: sodium chloride 1 gm Tablet PO (08:28)
[2024-08-01] MEDS: metoprolol tartrate 25 mg Tablet PO ×2 (08:28→21:07)
[2024-08-01] MEDS: amlodipine 10 mg Tablet PO (08:28)
[2024-08-01] MEDS: apixaban 5 mg Tablet PO ×2 (08:28→21:08)
--- NOTE | 2024-08-01 12:17 | PM.PN ---
Subjective Subjective: Infectious disease progress note. Last febrile 07/29/2024. WBC count at 10.09. Leukocytosis has resolved. PICC line was placed yesterday in the right arm. I had requested ultrasound Doppler of the left upper extremity to rule out septic thrombophlebitis. Study is negative for any superficial or deep vein thrombosis. Patient is not participating in physical therapy has been refusing at multiple occasions. Medications: Reviewed: Yes Vitals/I&O/Wt Last Vital Signs Temp 98.7 F 08/01/24 11:41 Pulse 69 08/01/24 11:41 Resp 22 H 08/01/24 11:41 BP 141/64 08/01/24 11:41 Pulse Ox 92 08/01/24 11:41 O2 Del Method Room Air 08/01/24 11:41 O2 Flow Rate 1 07/27/24 07:47 07/31/24 08/01/24 08/01/24 22:59 06:59 14:59 Intake Total 240 / 460 360 / 820 360 / 360 Output Total 800 / 1500 800 / 2300 100 / 100 Balance -560 / -1040 -440 / -1480 260 / 260 Weight last 48 hrs Weight 87 kg Weight 98.5 kg Physical Exam Narrative: General: No acute distress, AO x3, overall lethargic, chronically ill-appearing HEENT: PERRLA, pupils bilaterally equal and reactive, pallors not present Chest: Normal vesicular breath sounds, no added sounds, equal good air entry bilaterally CVS: S1-S2 regular, no murmurs, no tachycardia, no gallops, no rubs Abdomen: Soft, nontender, no organomegaly, bowel sounds present Neuro: Globally weak, states she is not able to lift her leg significantly off the bed. Moving bilateral upper extremities. No obvious facial deformity. Extremities bilateral knee osteoarthritis noted. Right knee joint swelling worse than the left, however no signs of surrounding cellulitis redness warmth or other changes to suggest a septic joint. Urinary Catheter Management: Garcia: Cath Placed During This Visit: yes Reason for Continuing Indwelling Catheter: Accurate Measurement of Urinary Output in Critically Ill Patients Urinary Catheter Date of Insertion: 07/24/24 Data 08/01/24 07:05 08/01/24 07:05 Micro: Microbiology 07/27/24 03:04 Blood Culture - Final Blood Staphylococcus aureus 07/27/24 03:01 Blood Culture - Final Blood Staphylococcus aureus 07/25/24 04:48 Blood Culture - Final Blood Staphylococcus aureus 07/25/24 04:47 Blood Culture - Final Blood Staphylococcus aureus 07/27/24 03:01 Blood Culture - Preliminary Blood 07/27/24 03:04 Blood Culture - Preliminary Blood NEGATIVE TO DATE 07/25/24 04:47 Blood Culture - Preliminary Blood Staphylococcus aureus S aureus M.I.C. RX --------- ------ * Ciprofloxacin <=1 S * Clindamycin 1 I * Erythromycin <=0.5 S * Levofloxacin 2 S * Linezolid >4 R * Moxifloxacin 1 S * Oxacillin 1 S * Penicillin >8 R * Rifampin <=1 S * Tetracycline >8 R * Trimethoprim/Sulfamethoxazole <=0.5/9.5 S Vancomycin 2 S Daptomycin 1 S Peripheral blood culture: 07/24/2024 : 4 of 4 positive for MSSA 07/25/2024: 2/4+ for MSSA 07/27/2024: 2 of 2 positive for Staph aureus MSSA 07/29/2024: negative to date A&P Assessment and plan (1) Staphylococcus aureus bacteremia: (2) Atrial fibrillation: (3) Lumbar stenosis with neurogenic claudication: (4) PICC line infection: Plan Please see consult note for details with regards to HPI Briefly 64-year-old lady who had a PICC line placement a few weeks ago to enable TPN for failure to thrive after gastric surgery a year ago presented to the hospital with cauda equina syndrome and radiculopathy. Noted to have low-grade fever and leukocytosis upon admission, blood cultures eventually returning positive for MSSA between 07/24/2024 to 07/27/2024. Source of infection may have been PICC line related. No other obvious source on extensive evaluation. CT of the chest abdomen and pelvis without any gross source. MRI of the lumbar spine without any epidural abscess discitis or osteomyelitis. UA unremarkable. Chest x-ray without consolidation. PICC line removed 07/25/2024. Patient was on treatment with linezolid 600 mg IV every 24 hours Agree with switch to nafcillin for organism directed therapy for MSSA. Cefazolin 2 g IV every 8 hours may be an alternative if less frequent dosing desired. Repeat blood cultures to ascertain clearance. TTE without gross vegetations Plan to treat patient with 6 weeks of organism directed therapy for endovascular infection. Can defer DEEPAK for now if blood cultures clear after switching to nafcillin/cefazolin and removal of PICC line as unlikely to change clinical management. Currently no peripheral stigmata of endocarditis. Wait at least until 48 to 72 hours after clearance of blood cultures to place another PICC line. 07/29/2024 Tmax 100 Fahrenheit. Blood cultures taken this morning, will await results to a certain clearance. Continue cefazolin 2 g IV every 8 hours. Plan treatment duration for 6 weeks. Patient is planned to go to senior care facility likely after discharge. If cultures remain persistently positive, will need DEEPAK. Closely monitor for now. August 01, 2024 Afebrile now over 48 hours. Blood culture from July 29 remain negative to date. Continue cefazolin 2 g IV every 8 hours over the next 6 weeks. Source appears to be infected PICC line which had been in place over the left arm. No signs of superficial or deep vein thrombosis over this arm. New PICC line placed on July 31, 2024 to the right arm. Continue cefazolin 2 g IV every 8 hours for 6 weeks Obtain weekly labs including CBC, LFT and creatinine while patient remains on above treatment and faxed to the infectious disease clinic for review. LFT added to a.m. labs for tomorrow. DEEPAK deferred as would not change treatment duration, source appears to be PICC line related endovascular infection. Follow-up in infectious disease clinic in 1 month Thank you for this consult. Please call with any further questions or concerns. Attestations Medical Necessity Statement*: Per admitting Coding Level of Care Code Acute Code for Chg Fwd High MDM includes number and complexity of problems actively addressed during encounter, amount and/or complexity of data reviewed/ordered and described risk of complication, morbidity or mortality of management as documented Diagnoses Staphylococcus aureus bacteremia R78.81; B95.61 Atrial fibrillation I48.91 Lumbar stenosis with neurogenic claudication M48.062 PICC line infection T80.219A
--- NOTE | 2024-08-01 15:07 | P.PN_ITS ---
Subjective 2 Subjective: Patient was seen this morning, does report poor appetite, no fevers, no chills, no cough, has no pain complaints, Vitals/I&O/Wt Last Vital Signs Temp 98.7 F 08/01/24 11:41 Pulse 69 08/01/24 11:41 Resp 22 H 08/01/24 11:41 BP 141/64 08/01/24 11:41 Pulse Ox 92 08/01/24 11:41 O2 Del Method Room Air 08/01/24 11:41 O2 Flow Rate 1 07/27/24 07:47 08/01/24 08/01/24 08/01/24 06:59 14:59 22:59 Intake Total 360 / 820 360 / 360 Output Total 800 / 2300 100 / 100 Balance -440 / -1480 260 / 260 Weight last 48 hrs Weight 87 kg Weight 98.5 kg Physical Exam 2 Const: COMMON NORMALS: no acute distress and patient oriented x3 GENERAL APPEARANCE: frail appearing Resp: COMMON NORMALS: normal respiratory effort, No retractions, No use of accessory muscles and clear to auscultation bilaterally AUSCULTATION: clear to auscultation bilaterally Cardio: COMMON NORMALS: regular rate, regular rhythm, S1 normal heart sound present and S2 normal heart sound present RATE: regular rate RHYTHM: r egular rhythm HEART SOUNDS: S1 normal heart sound present and S2 normal heart sound present GI: COMMON NORMALS: Normal to inspection, nondistended, normoactive bowel sounds present and non-tender Extremity: COMMON NORMALS: no pedal edema Neuro: COMMON NORMALS: patient oriented x3 Psych: COMMON NORMALS: mental status grossly normal Urinary Catheter Management: Garcia: Cath Placed During This Visit: yes Reason for Continuing Indwelling Catheter: Accurate Measurement of Urinary Output in Critically Ill Patients Urinary Catheter Date of Insertion: 07/24/24 Data 08/01/24 07:05 08/01/24 07:05 Micro: Microbiology 07/27/24 03:04 Blood Culture - Final Blood Staphylococcus aureus 07/27/24 03:01 Blood Culture - Final Blood Staphylococcus aureus 07/25/24 04:48 Blood Culture - Final Blood Staphylococcus aureus 07/25/24 04:47 Blood Culture - Final Blood Staphylococcus aureus A&P Assessment and plan (1) Staphylococcus aureus bacteremia: - MSSA bacteremia -Source is likely PICC line that was placed in June 2024 for feeding, poor appetite after her gastric bypass surgery June 2023 -PICC line has been removed -Transthoracic cardiac echocardiogram, no valvular vegetations, no reported IV drug use -But will do CT chest abdomen pelvis no acute findings -She did complain of back pain, she has had a lumbar MRI no evidence of discitis -First 3 blood cultures positive for MSSA species ? Full set of blood cultures from 05/29/2024 so far negative -Continue cefazolin -Repeat blood cultures so far pending -Place PICC line today (2) Back pain: MR/MR lumbar spine wo con* [id number] IMPRESSION: Multilevel, multifactorial degenerative changes are present throughout the lumbar spine with varying degrees of canal and neural foramina stenosis as described in detail above. The canal stenosis is severe at the L4-L5 level with compression of the cauda equina. Canal stenosis is moderate to severe at the L2-L3 and L3-L4 levels where the cauda equina are crowded and/or compressed. -Orthopedic service has been consulted -For now given her MSSA bacteremia surgical intervention is on hold -Will have to have patient follow-up with Dr. Shah as outpatient (3) Atrial fibrillation: Continue p.o. metoprolol Continue Eliquis 5 twice daily (4) Protein calorie malnutrition: - Used to get infusions from peripheral nutrition through her PICC line 7 PM to 7 AM -Patient had a gastric bypass June 2023, had poor appetite since then, and then had PICC line placed roughly June 2024, due to poor appetite, now removed -Will consult dietary -Encourage p.o. intake -If she continues to have poor oral intake will consider PEG tube placement Plan Past history of DVT, currently on low-dose Eliquis at home. Changed to Lovenox secondary to A-fib, and potential need for a surgical procedure. Monitor for risk of bleeding Other medical problems as outlined in past medical history Hyponatremia, likely secondary to poor oral intake, IV fluids, salt tablets, monitor serum sodium Acute encephalopathy, monitor mentation closely, monitor serum sodium levels, CT head no acute findings back to baseline, resolved Acute low back pain Full code currently Lovenox for DVT prophylaxis Plan for today oral hydration therapy, continue IV cefazolin, PICC line in place Attestations 2 Medical Necessity Statement*: Patient requires hospitalization for MSSA bacteremia Diagnoses Staphylococcus aureus bacteremia R78.81; B95.61 Back pain M54.9 Atrial fibrillation I48.91 Protein calorie malnutrition E46
[2024-08-02] VITALS: BP 153/64; PULSE 76; RESP 23; TEMP 36.8; O2SAT 94
[2024-08-02 04:00] VITALS: BP 149/66; PULSE 78; RESP 19; TEMP 36.9; O2SAT 90
[2024-08-02] MEDS: ceFAZolin 2,000 mg SDV 2000 MG IVP ×2 (04:48→11:53)
[2024-08-02 05:48] LABS: Basophils % 0.2 %; Eosinophils % 0.4 %; Hematocrit 27.3 % (36-47); Lymphocytes # 1.1 10^3/uL (0.8-4.8); Mean Corpuscular HGB Conc 31.9 g/dL (30-55); Mean Corpuscular Hemoglobin 29.1 pg (27-33); Mean Corpuscular Volume 91.3 fl (85-98); Mean Platelet Volume 10.2 fL (7.4-10.4); Monocytes # 0.6 10^3/uL (0.2-0.9); Monocytes % 5.6 %; Neutrophils # 8.28 10^3/uL (1.8-7.7); Neutrophils % 82.1 %; Nucleated Red Blood Cells % 0 %; Platelet Count 267 10^3/cmm (157-399); Red Blood Count 2.99 10^6/uL (3.85-5.65); Red Cell Distribution Width 12.6 % (12.1-15.1); White Blood Count 10.08 10^3/uL (3.29-11.43)
[2024-08-02 06:00] VITALS: PULSE 75
[2024-08-02 06:03] LABS: Alanine Aminotransferase 14 U/L (0-33); Albumin Level 1.9 g/dL (3.5-5.2); Alkaline Phosphatase 289 U/L (35-105); Anion Gap 7.3 (5-19); Aspartate Amino Transferase 44 U/L (0-32); Blood Urea Nitrogen 9 mg/dL (8-23); Calcium 10.5 mg/dL (8.5-10.5); Carbon Dioxide 27 mmol/L (22-29); Chloride 99 mmol/L (98-107); Creatinine Clr Calc Pharmacy 77.8945; Globulin 3.2 g/dL (1.3-4.6); Glomerular Filtration Rate 123.8 mL/min (90-130); Glucose 109 mg/dL (65-115); Osmolality Calculated 269 mOsm/kg (285-295); Potassium 3.3 mmol/L (3.5-5.1); Sodium 130 mmol/L (136-145); Total Bilirubin 0.6 mg/dL (0.15-1.2); Total Protein 5.1 g/dL (6.6-8.7)
[2024-08-02 07:32] VITALS: BP 161/68; PULSE 79; RESP 24; TEMP 36.8; O2SAT 92
[2024-08-02] MEDS: sodium chloride 1 gm Tablet PO (09:17)
[2024-08-02] MEDS: levothyroxine 137 mcg Tablet PO (09:17)
[2024-08-02] MEDS: gabapentin 400 mg Capsule PO (09:17)
[2024-08-02] MEDS: amlodipine 10 mg Tablet PO ×2 (09:18)
[2024-08-02] MEDS: metoprolol tartrate 25 mg Tablet PO (09:18)
[2024-08-02] MEDS: apixaban 5 mg Tablet PO (09:18)
--- NOTE | 2024-08-02 10:50 | P.DS_ITS ---
Discharge Providers Date of Admission: 07/24/24 12:19 Date of Discharge: August 02, 2024 Attending Provider at Admission: Jermaine Rodriguez MD Attending Provider at Discharge: James Fletcher MD Primary Care Provider: Noel Landon MD Diagnoses at Discharge Discharge Diagnosis (1) Staphylococcus aureus bacteremia: Status: Acute (2) Back pain: Status: Acute (3) Atrial fibrillation: Status: Acute (4) Protein calorie malnutrition: Status: Acute Reason for Visit Reason for Visit: Back Pain Hospital Course Hospital Course This is a 64-year-old female who presents to [facility] due to weakness, back pain, recent history of gastric bypass in 2022, started on TPN on June 2024 Patient was admitted to [facility] for MSSA bacteremia, likely source is PICC line, PICC line removed, received broad-spectrum antibiotic therapy, overall repeat blood cultures have been negative so far, remains afebrile, will be discharged on 2 g IV cefazolin every 8 hours for a total of 6 weeks, stop date September 09, 2024. Follow-up with infectious disease as outpatient For patient's poor appetite, dietary was consulted, her diet to some degree has improved, continue to monitor closely. If patient continues to have poor appetite she might require a PEG tube placement will have her follow-up with general surgery as outpatient Her hospitalization was complicated by acute on chronic anemia, hemoglobin discharge 8.7. No hemodynamic compromise no bloody or black stools. Monitor hemoglobin as outpatient recheck on Saturday. Discharged on Protonix, Carafate with a close follow-up with general surgery as outpatient for consideration of EGD. Patient's hospitalization was complicated by hyponatremia, which improved with IV fluids, salt tablets, discharged on oral hydration, salt tablets, multivitamins Acute encephalopathy, likely related to prolonged hospitalization, resolved on discharge For her back pain Back pain: MR/MR lumbar spine wo con* [id number] IMPRESSION: Multilevel, multifactorial degenerative changes are present throughout the lumbar spine with varying degrees of canal and neural foramina stenosis as described in detail above. The canal stenosis is severe at the L4-L5 level with compression of the cauda equina. Canal stenosis is moderate to severe at the L2-L3 and L3-L4 levels where the cauda equina are crowded and/or compressed. -Orthopedic service has been consulted, diagnosed with lumbar stenosis with neurogenic claudication ? Will likely require surgery on an outpatient basis -Will have her follow-up with Dr. Shah as outpatient in the next week for decision to proceed with surgery Continue to monitor closely, discharge to intermediate facility with outpatient PT OT, IV antibiotics, Physical Exam Const: COMMON NORMALS: no acute distress and patient oriented x3 Resp: COMMON NORMALS: normal respiratory effort, No retractions, No use of accessory muscles and clear to auscultation bilaterally AUSCULTATION: clear to auscultation bilaterally Cardio: COMMON NORMALS: regular rate, regular rhythm, S1 normal heart sound present and S2 normal heart sound present RATE: regular rate RHYTHM: regular rhythm HEART SOUNDS: S1 normal heart sound present and S2 normal heart sound present GI: COMMON NORMALS: Normal to inspection, nondistended, normoactive bowel sounds present and non-tender Extremity: COMMON NORMALS: no pedal edema Neuro: COMMON NORMALS: patient oriented x3 Psych: COMMON NORMALS: mental status grossly normal Urinary Catheter Management: Garcia: Cath Placed During This Visit: yes Reason for Continuing Indwelling Catheter: Accurate Measurement of Urinary Output in Critically Ill Patients Urinary Catheter Date of Insertion: 07/24/24 Discharge Data Studies Completed and Pending Completed Studies During Hospitalization Category Date Time Status CT chest abdomen pelvis [[place] [id number] Cat Scan 07/27/24 14:51 Completed ] Routine CT head wo con* [id number] Routine Cat Scan 07/27/24 15:[address] lumbar spine wo con* [id number] Stat Cat Scan 07/24/24 06:[address] neck wo con [id number] Routine Cat Scan 07/27/24 15:09 Completed CXRP [XR chest 1V portable [id number]] Routine Exams 07/31/24 11:29 Completed XR chest 1V portable [id number] Routine Exams 07/24/24 13:21 Completed MR lumbar spine wo con* [id number] Routine MRI 07/24/24 12:57 [place] [id number] Routine Ultrasound 07/31/24 09:36 Completed CV. echo complete* [id number] Routine Ultrasound 07/24/24 12:39 Completed Pending at discharge Category Date Time Status Blood Culture AM LABS Lab 07/29/24 05:40 Results CMP [Comprehensive Metabolic Panel] AM LABS Lab 08/03/24 04:00 Ordered Complete Blood Count w/Auto AM LABS Lab 08/03/24 04:00 Ordered Radiology Impressions Lumbar Spine CT 07/24/24 06:59 IMPRESSION: 1. No acute fractures identified. 2. Grade 1 anterolisthesis of L4, unchanged. 3. Mild progression of stenosis and facet joint arthropathy since 2019. 4. L4-5: Severe central, bilateral subarticular recess and foraminal stenosis. Severe facet joint arthropathy. 5. L5-S1: Mild central with moderate bilateral subarticular recess and mild foraminal stenosis. 6. L2-3: Moderate central, bilateral subarticular recess and mild foraminal stenosis. 7. L3-4: Severe central, bilateral subarticular recess and moderate foraminal stenosis. Lumbar Spine MRI 07/24/24 12:57 IMPRESSION: Multilevel, multifactorial degenerative changes are present throughout the lumbar spine with varying degrees of canal and neural foramina stenosis as described in detail above. The canal stenosis is severe at the L4-L5 level with compression of the cauda equina. Canal stenosis is moderate to severe at the L2-L3 and L3-L4 levels where the cauda equina are crowded and/or compressed. Chest/Abdomen/Pelvis CT 07/27/24 14:51 IMPRESSION: 1. Dependent changes and atelectasis at the lung bases. 2. No pneumothorax or pneumonia. 3. No free air. 4. Diffuse soft tissue anasarca. 5. Very small amount of residual free fluid in the pelvis. 6. Garcia catheter in the urinary bladder. 7. Hepatic steatosis and prior cholecystectomy. 8. Cardiomegaly. Heart appears larger than it did on 06/07/2024. Neck CT 07/27/24 15:09 IMPRESSION: Unremarkable neck CT. Head CT 07/27/24 15:14 IMPRESSION: 1. No acute intracranial hemorrhage or edema. 2. Minimal cerebral atrophy and small vessel disease. 3. No paranasal sinus disease. Venous Duplex 07/31/24 09:36 IMPRESSION: No evidence of deep vein thrombosis. Chest X-Ray 07/31/24 11:29 IMPRESSION: 1. Satisfactory RIGHT PICC line. Laboratory Results WBC 10.08 10^3/uL (3.29-11.43) 08/02/24 04:59 RBC 2.99 10^6/uL (3.85-5.65) L 08/02/24 04:59 Hgb 8.70 g/dL (11.27-16.99) L 08/02/24 04:59 Hct 27.3 % (36-47) L 08/02/24 04:59 MCV 91.3 fl (85-98) 08/02/24 04:59 MCH 29.1 pg (27-33) 08/02/24 04:59 MCHC 31.9 g/dL (30-55) 08/02/24 04:59 RDW 12.6 % (12.1-15.1) 08/02/24 04:59 Plt Count 267 10^3/cmm (157-399) 08/02/24 04:59 MPV 10.2 fL (7.4-10.4) 08/02/24 04:59 Neut % (Auto) 82.1 % 08/02/24 04:59 Lymph % (Auto) 11.0 % 08/02/24 04:59 [place] % (Auto) 5.6 % 08/02/24 04:59 Eos % (Auto) 0.4 % 08/02/24 04:59 Baso % (Auto) 0.2 % 08/02/24 04:59 Neut # (Auto) 8.28 10^3/uL (1.8-7.7) H 08/02/24 04:59 Lymph # (Auto) 1.1 10^3/uL (0.8-4.8) 08/02/24 04:59 [place] # (Auto) 0.6 10^3/uL (0.2-0.9) 08/02/24 04:59 Eos # (Auto) 0.0 10^3/uL (0.0-0.8) 08/02/24 04:59 Baso # (Auto) 0.0 10^3/uL (0.0-0.1) 08/02/24 04:59 Nucleated RBC % (auto) 0 % 08/02/24 04:59 Nucleated RBCs # 0.0 /100WBC 08/02/24 04:59 Sodium 130 mmol/L (136-145) L 08/02/24 04:59 Potassium 3.3 mmol/L (3.5-5.1) L 08/02/24 04:59 Chloride 99 mmol/L (98-107) 08/02/24 04:59 Carbon Dioxide 27 mmol/L (22-29) 08/02/24 04:59 Anion Gap 7.3 (5-19) 08/02/24 04:59 BUN 9 mg/dL (8-23) 08/02/24 04:59 Creatinine 0.5 mg/dL (0.5-0.9) 08/02/24 04:59 GFR Calculation 123.8 mL/min (90-130) 08/02/24 04:59 Glucose 109 mg/dL (65-115) 08/02/24 04:59 Estimat Average Glucose 80 07/24/24 02:09 Hemoglobin A1c 4.4 % (4.0-6.0) 07/24/24 02:09 Calculated Osmolality 269 mOsm/kg (285-295) L 08/02/24 04:59 Lactic Acid 2.3 mmol/L (0.5-2.2) H 07/24/24 02:09 Lactic Acid (Sepsis) 1.7 mmol/L (0.5-2.2) 07/24/24 08:29 Calcium 10.5 mg/dL (8.5-10.5) 08/02/24 04:59 Magnesium 2.0 mg/dL (1.7-2.3) 07/26/24 04:29 Total Bilirubin 0.6 mg/dL (0.15-1.2) 08/02/24 04:59 AST 44 U/L (0-32) H 08/02/24 04:59 ALT 14 U/L (0-33) 08/02/24 04:59 Alkaline Phosphatase 289 U/L (35-105) H 08/02/24 04:59 Troponin T Baseline 92 ng/L (0-10) H 07/24/24 08:29 Troponin T 120 Minute 93.79 ng/L (0-10) H 07/24/24 10:30 Delta Troponin T 1.79 ABS# (0-10) 07/24/24 10:30 Troponin T Hi Sens 6Hr 95.52 ng/L (0-10) H 07/24/24 14:32 Troponin T Hi Sens 6Hr Delta 3.52 ng/L (0-12) 07/24/24 14:32 C-Reactive Protein 105.8 mg/L (0.0-4.9) H 07/30/24 03:46 Total Protein 5.1 g/dL (6.6-8.7) L 08/02/24 04:59 Albumin 1.9 g/dL (3.5-5.2) L 08/02/24 04:59 Globulin 3.2 g/dL (1.3-4.6) 08/02/24 04:59 Procalcitonin 0.27 ng/mL (0-0.5) 07/30/24 03:46 TSH 2.07 uIU/mL (0.27-4.20) 07/24/24 02:09 Urine Color Yellow (Yellow) 07/24/24 02:45 Urine Appearance Clear (CLEAR) 07/24/24 02:45 Urine pH 5.5 (5-7) 07/24/24 02:45 Ur Specific [place] 1.018 (1.005-1.030) 07/24/24 02:45 Urine Protein Trace (Negative) A 07/24/24 02:45 Urine Glucose (UA) Negative (Normal) 07/24/24 02:45 Urine Ketones Negative (Negative) 07/24/24 02:45 Urine Blood Negative (Negative) 07/24/24 02:45 Urine Nitrate Negative (Negative) 07/24/24 02:45 Urine Bilirubin Negative (Negative) 07/24/24 02:45 Urine Urobilinogen 1.0 mg/dL (Negative) 07/24/24 02:45 Ur Leukocyte Esterase Negative (Negative) 07/24/24 02:45 Urine RBC 6-10 /hpf (0-2) 07/24/24 02:45 Urine WBC 0-5 /hpf (0-5) 07/24/24 02:45 Ur Squamous Epith Cells 0-5 /hpf (0-5) 07/24/24 02:45 Amorphous Sediment Not Reportable 07/24/24 02:45 Urine Bacteria None seen /hpf (NONE) 07/24/24 02:45 Hyaline Casts 2.05 /lpf 07/24/24 02:45 Vitals Last Vital Signs Temp 98.3 F 08/02/24 07:32 Pulse 79 08/02/24 07:32 Resp 24 H 08/02/24 07:32 BP 161/68 08/02/24 07:32 Pulse Ox 92 08/02/24 07:32 O2 Del Method Room Air 08/02/24 07:32 O2 Flow Rate 1 07/27/24 07:47 Discharge Plan Discharge Patient Disposition: Xfer SNF Condition: Stable Prescriptions: New amlodipine 10 mg Tablet 10 mg PO DAILY 30 Days Qty: 30 0RF metoprolol tartrate 25 mg Tablet 25 mg PO BID@0900,2100 30 Days Qty: 60 0RF cefazolin 2 gram Recon Soln 2,000 mg IVP Q8H 42 Days Qty: 25 0RF Rx Instructions: start 07/31/2024, 6 weeks, oxycodone 5 mg Tablet 5 mg PO Q6H PRN (Reason: Moderate Pain) 7 Days Qty: 28 0RF multivitamin Tablet 1 tab PO DAILY 30 Days Qty: 30 0RF sodium chloride 1,000 mg tablet,soluble 1,000 mg PO DAILY 30 Days Qty: 30 0RF pantoprazole [Protonix] 40 mg tablet,delayed release (DR/EC) 40 mg PO BID 30 Days Qty: 60 0RF sucralfate [Carafate] 1 gram tablet 1 g PO BID 28 Days Qty: 56 0RF Continued levothyroxine 137 mcg capsule 137 mcg PO DAILY gabapentin 400 mg capsule 400 mg PO TID multivitamin with iron Tablet 1 tab PO DAILY magnesium oxide 400 mg (241.3 mg magnesium) tablet 400 mg PO DAILY docusate sodium [Stool Softener] 250 mg Capsule 250 mg PO BID Changed Eliquis 2.5 mg tablet 5 mg PO BID 30 Days Qty: 120 0RF Discontinued tramadol 50 mg tablet 50 mg PO TID PRN (Reason: Pain) diphenhydramine-acetaminophen [Tylenol PM Extra Strength] 25-500 mg tablet 3 tab PO BEDTIME PRN (Reason: Pain) omeprazole 40 mg capsule,delayed release(DR/EC) 40 mg PO DAILY trazodone 100 mg tablet 100 mg PO DAILY Discharge Orders: Discharge Order (Routine); Ordered 08/02/24 Ordered By: James Fletcher Referrals: [facility] [Provider Group] - 09/01/24 10:00 am [facility] [Outside] Sin Pinto DO [Physician] - 1-3 days Parrish Shah DO [Physician] - 1-3 days Noel Landon MD [Primary Care Provider] - Discharge Diet: As Directed Discharge Activity: Increase activity as tolerated Patient Instructions: Metoprolol (By mouth) (Lopressor, Toprol XL), Oxycodone/Acetaminophen (By mouth), Amlodipine (By mouth), Cefazolin (By injection), Sodium Chloride (By mouth), Opioid Safety, Pain Management, Staph ylococcus Aureus Infection Activity Restrictions/Additional Instructions: I would call your primary provider today and discussed with them that you are having worsening issues with her mobility. Discussed being placed in rehab again. Or intermediate. Thank you for choosing [facility] for your healthcare needs today. Please realize this is an emergency room and that we are providing you with a medical screening exam and this may not be complete and all inclusive of all the testing and or work up that you may need to determine your ailment or severity of your illness. You have been screened and evaluated and felt safe for discharge. Health conditions do change or evolve sometimes and as such it is important that you follow up with your Primary Doctor to be re checked, 3-5 days is a general good time frame for follow up. You are always welcome to return to the ED for re assessment if your symptoms are worsening or you have new concerns Follow-up in orthospine clinic in 1 week -recheck hemoglobin in 24 hours -cefazolin 2g iv q8hrs for 6 weeks, last dose sep 0912/2024 ? For your back pain, please follow-up with Dr. Shah in the next few days ? For your acute anemia please follow-up with general surgery ? If you continue to have poor appetite, you might require PEG tube placement follow general surgery Discharge Attestations Time Spent in Discharge Care*: greater than 30 min Quality Metrics Clinical Quality Measures [ No reported AMI, CVA or VTE this stay] Coding Level of Care Code 07171 Total time (in minutes) for Discharge: 45 Diagnoses Staphylococcus aureus bacteremia R78.81; B95.61 Back pain M54.9 Atrial fibrillation I48.91 Protein calorie malnutrition E46
[2024-08-02 11:40] VITALS: BP 149/56; PULSE 72; RESP 24; TEMP 37.2; O2SAT 92
[2024-08-02] MEDS: pantoprazole 40 mg SDV IVP (11:52)
[2024-08-02] MEDS: potassium chloride ER 20 mEq Tablet PO (11:53)
[2024-08-02 16:18] VITALS: BP 149/66; PULSE 80; RESP 18; O2SAT 92
== END 2024-08-02 16:21 | disposition skilled nursing facility (03) | DRG 309 ==
LOC: ER 05:53 → CSU 12:19
PROVIDERS: Emergency Medicine; Internal Medicine; Student in an Organized Health Care Education/Training Program; Admitting Provider Internal Medicine; Emergency Provider Family Medicine; PCP Family Medicine; Visit Provider Family Medicine
DX: I48.91 Unspecified atrial fibrillation (principal); E46 Unspecified protein-calorie malnutrition; T80.211A Bloodstream infection due to central venous catheter, initial encounter; R78.81 Bacteremia; E87.1 Hypo-osmolality and hyponatremia; G93.40 Encephalopathy, unspecified; B95.61 Methicillin susceptible Staphylococcus aureus infection as the cause of diseases classified elsewhere; D64.89 Other specified anemias; R33.9 Retention of urine, unspecified; E03.9 Hypothyroidism, unspecified; K21.9 Gastro-esophageal reflux disease without esophagitis; M48.062 Spinal stenosis, lumbar region with neurogenic claudication; Y71.1 Therapeutic (nonsurgical) and rehabilitative cardiovascular devices associated with adverse incidents; Z68.31 Body mass index [BMI] 31.0-31.9, adult; Z98.84 Bariatric surgery status; Z86.718 Personal history of other venous thrombosis and embolism; Z79.01 Long term (current) use of anticoagulants
CPT/HCPCS: 36415; 36573; 36592; 51702; 51798; 70450; 70490; 71045; 71250; 72131; 72148; 74176; 80048; 80053; 81001; 83036; 83605; 83735; 84145; 84295; 84443; 84484; 85025; 86140; 87040; 87077; 87150; 87186; 87205; 93005; 93306; 93971; 96365; 96366; 96372; 96375; 96376; 97110; 97161; 97166; 97530; 99285; A9270; J0690; J1171; J1650; J2020; J2405; J2470; J3490; J7030

== ENCOUNTER 2024-08-04 13:00 | Oncology outpatient (recurring) (ONCR) | payer MEDICARE, SELFPAY ==
[2024-07-20 13:17] LABS: Basophils % 0.5 %; Eosinophils % 0.1 %; Lymphocytes # 0.8 10^3/uL (0.8-4.8); Lymphocytes % 9.5 %; Mean Corpuscular HGB Conc 33.1 g/dL (30-55); Mean Corpuscular Hemoglobin 31.2 pg (27-33); Mean Corpuscular Volume 94.1 fl (85-98); Mean Platelet Volume 11.9 fL (7.4-10.4); Monocytes # 0.6 10^3/uL (0.2-0.9); Monocytes % 7.6 %; Neutrophils % 81.9 %; Nucleated Red Blood Cells % 0 %; Platelet Count 180 10^3/cmm (157-399); Red Cell Distribution Width 11.7 % (12.1-15.1)
[2024-07-20 13:38] LABS: Alanine Aminotransferase 25 U/L (0-33); Albumin Level 3.5 g/dL (3.5-5.2); Alkaline Phosphatase 119 U/L (35-105); Anion Gap 17.2 (5-19); Aspartate Amino Transferase 39 U/L (0-32); Blood Urea Nitrogen 19 mg/dL (8-23); Calcium 10.3 mg/dL (8.5-10.5); Carbon Dioxide 24 mmol/L (22-29); Chloride 99 mmol/L (98-107); Globulin 2.7 g/dL (1.3-4.6); Glomerular Filtration Rate 123.8 mL/min (90-130); Glucose 135 mg/dL (65-115); Magnesium 2.1 mg/dL (1.7-2.3); Osmolality Calculated 286 mOsm/kg (285-295); Potassium 4.2 mmol/L (3.5-5.1); Sodium 136 mmol/L (136-145); Total Bilirubin 0.8 mg/dL (0.15-1.2); Total Protein 6.2 g/dL (6.6-8.7)
[2024-07-23 15:29] LABS: Basophils % 0.3 %; Eosinophils # 0.1 10^3/uL (0.0-0.8); Eosinophils % 0.4 %; Hematocrit 31.5 % (36-47); Lymphocytes % 8.1 %; Mean Corpuscular HGB Conc 33.3 g/dL (30-55); Mean Corpuscular Hemoglobin 30.7 pg (27-33); Mean Corpuscular Volume 92.1 fl (85-98); Monocytes % 8.4 %; Neutrophils % 82.2 %; Nucleated Red Blood Cells % 0 %; Platelet Count 193 10^3/cmm (157-399); Red Blood Count 3.42 10^6/uL (3.85-5.65); Red Cell Distribution Width 12.3 % (12.1-15.1); White Blood Count 12.29 10^3/uL (3.29-11.43)
[2024-07-23 15:46] LABS: Alanine Aminotransferase 31 U/L (0-33); Albumin Level 3.2 g/dL (3.5-5.2); Alkaline Phosphatase 139 U/L (35-105); Anion Gap 13.8 (5-19); Aspartate Amino Transferase 35 U/L (0-32); Blood Urea Nitrogen 19 mg/dL (8-23); Calcium 9.9 mg/dL (8.5-10.5); Carbon Dioxide 24 mmol/L (22-29); Chloride 95 mmol/L (98-107); Globulin 2.8 g/dL (1.3-4.6); Glomerular Filtration Rate 100.3 mL/min (90-130); Glucose 141 mg/dL (65-115); Magnesium 1.9 mg/dL (1.7-2.3); Osmolality Calculated 273 mOsm/kg (285-295); Phosphorus 2.6 mg/dL (2.5-4.5); Potassium 3.8 mmol/L (3.5-5.1); Sodium 129 mmol/L (136-145); Total Bilirubin 0.8 mg/dL (0.15-1.2)
== END 2024-08-04 23:59 | disposition home or self-care (01) ==
PROVIDERS: PCP Family Medicine; Visit Provider Family Medicine
DX: Z53.9 Procedure and treatment not carried out, unspecified reason (principal)
CPT/HCPCS: 36592; 80053; 83735; 84100; 85025

== ENCOUNTER → 2024-08-06 09:58 | Outpatient (BNVA) | payer MEDICARE, SELFPAY | PROVIDERS: PCP Family Medicine; Visit Provider Student in an Organized Health Care Education/Training Program | DX: D64.9 Anemia, unspecified (principal) | CPT/HCPCS: 99203 ==

== ENCOUNTER → 2024-08-13 10:19 | Outpatient (BNVA) | payer MEDICARE, SELFPAY | PROVIDERS: PCP Family Medicine; Visit Provider Orthopaedic Surgery | DX: M54.9 Dorsalgia, unspecified (principal); Z09 Encounter for follow-up examination after completed treatment for conditions other than malignant neoplasm; M48.062 Spinal stenosis, lumbar region with neurogenic claudication | CPT/HCPCS: 36415; 80053; 85025; 99214 ==

== ENCOUNTER → 2024-08-25 10:08 | Outpatient (BNVA) | payer MEDICARE, SELFPAY | PROVIDERS: PCP Family Medicine; Visit Provider Family Medicine | DX: Z01.818 Encounter for other preprocedural examination (principal) | CPT/HCPCS: 81003 ==

== ENCOUNTER 2024-09-01 11:04 | Oncology outpatient (recurring) (ONCR) | payer MEDICARE, SELFPAY ==
--- NOTE | 2024-09-01 11:43 | PC.NURSE ---
Pt arrived for lab draw from PICC-right upper FA. Flushed well with only slight blood return. Unable to draw labs from. Labs will need to be drawn peripherally at this time./fide
[2024-09-01 12:21] LABS: Basophils % 0.8 %; Eosinophils # 0.2 10^3/uL (0.0-0.8); Eosinophils % 4.7 %; Hematocrit 30.3 % (36-47); Lymphocytes # 1.2 10^3/uL (0.8-4.8); Lymphocytes % 31.7 %; Mean Corpuscular HGB Conc 31.4 g/dL (30-55); Mean Corpuscular Hemoglobin 26.8 pg (27-33); Mean Corpuscular Volume 85.6 fl (85-98); Mean Platelet Volume 10.1 fL (7.4-10.4); Monocytes # 0.3 10^3/uL (0.2-0.9); Monocytes % 8.4 %; Neutrophils # 2.08 10^3/uL (1.8-7.7); Neutrophils % 54.4 %; Nucleated Red Blood Cells % 0 %; Platelet Count 288 10^3/cmm (157-399); Red Blood Count 3.54 10^6/uL (3.85-5.65); Red Cell Distribution Width 14.5 % (12.1-15.1); White Blood Count 3.82 10^3/uL (3.29-11.43)
[2024-09-01 12:38] LABS: Alanine Aminotransferase < 5 U/L (0-33); Albumin Level 2.6 g/dL (3.5-5.2); Alkaline Phosphatase 154 U/L (35-105); Aspartate Amino Transferase 23 U/L (0-32); C Reactive Protein 14.1 mg/L (0.0-4.9); Globulin 3.3 g/dL (1.3-4.6); Glomerular Filtration Rate 223.3 mL/min (90-130); Total Bilirubin 0.5 mg/dL (0.15-1.2); Total Protein 5.9 g/dL (6.6-8.7)
== END 2024-09-04 23:59 | disposition home or self-care (01) ==
LOC: ONCMED 11:06
PROVIDERS: PCP Family Medicine; Visit Provider Student in an Organized Health Care Education/Training Program
DX: R78.81 Bacteremia (principal); B95.61 Methicillin susceptible Staphylococcus aureus infection as the cause of diseases classified elsewhere; M48.062 Spinal stenosis, lumbar region with neurogenic claudication; Z98.84 Bariatric surgery status; Z79.899 Other long term (current) drug therapy
CPT/HCPCS: 36415; 80076; 82565; 85025; 86140; 99205

== ENCOUNTER 2024-09-11 14:13 | Oncology outpatient (recurring) (ONCR) | payer MEDICARE, SELFPAY ==
--- NOTE | 2024-09-11 14:30 | MR_ITS ---
WS: [id number] MRI CERVICAL SPINE NONCONTRAST TECHNIQUE: Sagittal T1, T2 and STIR imaging. Axial T2, gradient, and fiesta imaging. CLINICAL INFORMATION: osteomyelitis of spine. Recent trauma hitting head on wall at [facility] COMPARISON: MRI 2016 FINDINGS: Straightening of the normal cervical lordosis. Prior postoperative changes ACDF C5-C6. Disc base narrowing at C4-5 has progressed compared to previous. Disc base narrowing at C7-T1 has progressed. Small amount of edema at the C1-2 articulation with a small amount of edema tip of the dens. Associated periarticular edema. No visualized displaced dens fractures or C1-2 widening. Findings could be inflammatory or degenerative although posttraumatic contusion/ligamentous injury can give a similar ba earance considering given history. Small amount of fluid and edema at the craniocervical junction and occipital condyles with normal alignment. This is only completely included on the sagittal imaging. CT can be obtained to exclude small nondisplaced fracture if persistent pain C2-C3: Mild facet arthropathy. Spinal canal and foramen are patent. C3-C4: Mild disc bulge with osteophytic ridging. Severe LEFT bony foraminal narrowing. Moderate RIGHT bony foraminal narrowing. Spinal canal is patent. Advanced facet arthropathy. RIGHT facet synovitis with a small amount of edema. C4-C5: Mild disc osteophyte ridging. Moderate facet arthropathy. Moderate LEFT and mild RIGHT bony foraminal narrowing. C5-C6: Postoperative changes ACDF. Mild central canal stenosis. Moderate bilateral bony foraminal narrowing. C6-C7: Disc osteophyte complex with endplate ridging. Moderate LEFT greater than RIGHT bony foraminal narrowing. Mild central canal stenosis. Moderate facet arthropathy. C7-T1: Slight anterolisthesis C7 on T1. Mild central canal stenosis. Moderate LEFT and mild RIGHT bony foraminal narrowing. Visualized brain stem structures: Normal. Prevertebral soft tissues: Normal. MR/MR cervical spin wo con* [id number] IMPRESSION: 1. Straightening of the normal cervical lordosis with postoperative ACDF C5-6. Disc desiccation at C4-5 and C7-T1 has progressed since 2016. 2. RIGHT facet synovitis C3-4 likely degenerative or inflammatory with a small amount of periarticular edema. 3. Mild central canal stenosis C5-C6 and C6-C7. 4. Multilevel moderate to severe bony foraminal narrowing worse at LEFT C3-C4, bilateral C5-C6, and bilateral C6-7 LEFT greater than RIGHT. 5. Tiny central protrusion at T2-3 in the upper thoracic spine. 6. Small amount of edema at the C1-2 articulation may be degenerative or infla mmatory with a small amount of periarticular and ligamentous edema. Contusion a nd ligamentous injury due to trauma is an additional consideration given histor y but no evidence of C1-2 widening or displaced dens fracture 7. No visualized displaced dens fractures although if persistent pain recommen d CT cervical spine for better anatomic bony detail
== END 2024-10-02 23:59 | disposition home or self-care (01) ==
LOC: RAD 16:15 → ONCMED 09-14 10:17
PROVIDERS: PCP Family Medicine; Visit Provider Student in an Organized Health Care Education/Training Program
DX: M50.321 Other cervical disc degeneration at C4-C5 level (principal); M48.02 Spinal stenosis, cervical region; M50.33 Other cervical disc degeneration, cervicothoracic region; M65.98 Unspecified synovitis and tenosynovitis, other site; M46.20 Osteomyelitis of vertebra, site unspecified; M51.24 Other intervertebral disc displacement, thoracic region
CPT/HCPCS: 72141

== ENCOUNTER 2024-09-21 08:26 | Outpatient (CLI) | payer MEDICARE, SELFPAY | END 2024-09-21 08:27 | disposition home or self-care (01) | LOC: LAB 08:28 | PROVIDERS: PCP Family Medicine; Visit Provider Student in an Organized Health Care Education/Training Program | DX: M46.20 Osteomyelitis of vertebra, site unspecified (principal) | CPT/HCPCS: 36415; 87040 ==

== ENCOUNTER 2024-09-30 08:01 | Day surgery (SDC) | payer MEDICARE, SELFPAY ==
[2024-09-30] VITALS (21 sets, daily range): BP systolic 102–152; BP diastolic 56–94; PULSE 75–88; RESP 14–26; TEMP 36.1–36.8; O2SAT 93–100; BMI 31.4
[2024-09-30] MEDS: sodium chloride 0.9% 1,000 ML 30 ML IV (09:07)
[2024-09-30 09:18] LABS: Basophils % 0.9 %; Eosinophils % 1.2 %; Hematocrit 34.2 % (36-47); Lymphocytes # 0.9 10^3/uL (0.8-4.8); Lymphocytes % 25.1 %; Mean Corpuscular HGB Conc 32.7 g/dL (30-55); Mean Corpuscular Hemoglobin 28.4 pg (27-33); Mean Corpuscular Volume 86.6 fl (85-98); Mean Platelet Volume 10.6 fL (7.4-10.4); Monocytes # 0.2 10^3/uL (0.2-0.9); Monocytes % 6.3 %; Neutrophils % 66.2 %; Nucleated Red Blood Cells % 0 %; Platelet Count 227 10^3/cmm (157-399); Red Blood Count 3.95 10^6/uL (3.85-5.65); Red Cell Distribution Width 16.5 % (12.1-15.1); White Blood Count 3.47 10^3/uL (3.29-11.43)
[2024-09-30 09:27] LABS: Blood Urea Nitrogen 5 mg/dL (8-23); Calcium 9.1 mg/dL (8.5-10.5); Carbon Dioxide 26 mmol/L (22-29); Chloride 106 mmol/L (98-107); Creatinine Clr Calc Pharmacy 78.5369; Glomerular Filtration Rate 123.8 mL/min (90-130); Glucose 95 mg/dL (65-115); Osmolality Calculated 295 mOsm/kg (285-295); Sodium 144 mmol/L (136-145)
--- NOTE | 2024-09-30 09:48 | W.PM.OPSFHP ---
Same Day Surgery H&P Indication for Procedure/HPI DATE OF PROCEDURE: September 30, 2024 CHIEF COMPLAINT/INDICATIONFOR SURGICAL PROCEDURE: Back and leg pain PREOP DIAGNOSIS: Lumbar stenosis with neurogenic claudication PLANNED PROCEDURE: Operation Date: 09/30/24 09:40 Proposed Procedures p Lumbar Decompression(Not Applicable) - Parrish Shah, DO Medications/Allergies* Home Medications ?Medication ?Instructions ?Recorded ?Confirmed ?Type gabapentin 400 mg capsule 400 mg PO TID 10/23/19 09/29/24 History levothyroxine 137 mcg capsule 137 mcg PO DAILY 10/23/19 09/29/24 History multivitamin with iron 1 tab PO DAILY 04/13/24 09/29/24 History docusate sodium 250 mg capsule 250 mg PO BID 07/24/24 09/29/24 History (Stool Softener) magnesium oxide 400 mg (241.3 mg 400 mg PO DAILY 07/24/24 09/29/24 History magnesium) tablet amlodipine 10 mg tablet 10 mg PO DAILY 09/01/24 09/29/24 History ferrous sulfate 325 mg (65 mg 325 mg PO EVERY OTHER DAY 09/01/24 09/29/24 History iron) tablet (FeroSul) metoprolol tartrate 25 mg tablet 25 mg PO BID 09/01/24 09/29/24 History oxycodone-acetaminophen 5 mg-325 1 tab PO Q6H PRN Pain, Mild 09/01/24 09/29/24 History mg tablet pantoprazole 40 mg tablet,delayed 40 mg PO BID 09/01/24 09/29/24 History release sertraline 25 mg tablet 25 mg PO BEDTIME 09/01/24 09/29/24 History Allergies/Adverse Reactions Allergy/AdvReac Type Severity Reaction Status Date / Time lactose Allergy ADR-Diarrhe Verified 09/29/24 14:40 a Milk Containing Products AdvReac Severe ADR-Flatule Verified 09/29/24 14:40 (Dairy) nce Current Medications: Generic Name Dose Route Start Last Admin Trade Name Freq PRN Reason Stop Dose Admin Sodium Chloride 1,000 mls @ 30 mls/hr 09/29/24 13:45 09/30/24 09:07 Sodium Chloride 0.9% IV 09/30/24 13:44 30 mls/hr .Q24H JEFF Administration Pertinent History/Comorbid Conditions* Medical History (Updated 08/03/24 @ 00:00 by BLANCHE Mcgill) GERD (gastroesophageal reflux disease) Hypothyroidism Instability of joint Spondylolisthesis, lumbar region Morbid obesity with BMI of 50.0-59.9, adult Lumbar stenosis with neurogenic claudication Intervertebral disc disorder with radiculopathy of lumbosacral region Spondylolisthesis (~08/15/16) Surgical History (Updated 09/01/24 @ 11:44 by Lizzeth Roman MD) History of gastric bypass History of cholecystectomy History of tonsillectomy History of knee surgery right knee laproscopic History of hysterectomy History of cervical spinal surgery (~2016) Dr. Abran Deleon Makaweli Family History (Updated 10/26/19 @ 09:14 by Zandra Gong LPN) Arthritis Mother Stroke Mother Social History Smoking and tobacco/nicotine status: unknown if used tobacco/nicotine Alcohol intake: never Substance/Drug Use: never Household members: spouse and family Marital status: Current occupational status: retired and disabled Pertinent Exam Findings oriented x 3 and procedure specific exam findings Recommendations Surgery/Procedure today Coding Level of Care Code Acute Code for Harshal Momin
--- NOTE | 2024-09-30 09:53 | ANES.PREANE2 ---
Pre-Anesthetic Assessment Height/Weight: Height 1.68 m Weight 88.451 kg Temp Pulse Resp BP Pulse Ox O2 Del Method 97.6 F 84 18 119/80 100 Room Air 09/30/24 08:18 09/30/24 08:18 09/30/24 08:18 09/30/24 08:18 09/30/24 08:18 09/30/24 08:37 Preop Diagnosis: Lumbar stenosis with neurogenic claudication Operation Date: 09/30/24 09:40 Proposed Procedures p Lumbar Decompression(Not Applicable) - Parrish Shah, DO Familial anesthetic complications: None Was Beta Bruce taken within 24 hours: Yes Was Clonidine taken within 24 hours: N/A Last intake: Intake Last Liquid Date 09/29/24 Last Liquid Time 23:45 Last Solid Date 09/29/24 Last Solid Time 17:30 Social No alcohol and No tobacco Exam alert, oriented x 3, clear to auscultation bilaterally and regular rate & rhythm Airway Mallampati: Class II Dentition: false CV/HEM Atrial Fibrillation (patient denies any knowledge of this issue), Anemia and Hypertension DVT GI gastric bypass, recent TPN d/t failure to thrive Anesthetic Plan ASA status: 3 Anesthesia: General Risk of > 500 ml blood loss (7ml/kg in children): No Other Pertinent Information Patient is poor historian Medications/Allergies Home Medications ?Medication ?Instructions ?Recorded ?Confirmed ?Last Taken ?Type gabapentin 400 mg capsule 400 mg PO TID 10/23/19 09/29/24 09/29/24 History levothyroxine 137 mcg capsule 137 mcg PO DAILY 10/23/19 09/29/24 09/29/24 History multivitamin with iron 1 tab PO DAILY 04/13/24 09/29/24 09/29/24 History docusate sodium 250 mg capsule 250 mg PO BID 07/24/24 09/29/24 09/29/24 History (Stool Softener) magnesium oxide 400 mg (241.3 mg 400 mg PO DAILY 07/24/24 09/29/24 09/29/24 History magnesium) tablet apixaban 2.5 mg tablet (Eliquis) 5 mg (2 x 2.5 mg) PO BID 30 days 07/31/24 09/29/24 09/23/24 Rx #120 tabs amlodipine 10 mg tablet 10 mg PO DAILY 09/01/24 09/29/24 09/29/24 History ferrous sulfate 325 mg (65 mg 325 mg PO EVERY OTHER DAY 09/01/24 09/29/24 09/29/24 History iron) tablet (FeroSul) metoprolol tartrate 25 mg tablet 25 mg PO BID 09/01/24 09/29/24 09/29/24 History oxycodone-acetaminophen 5 mg-325 1 tab PO Q6H PRN Pain, Mild 09/01/24 09/29/24 09/29/24 History mg tablet pantoprazole 40 mg tablet,delayed 40 mg PO BID 09/01/24 09/29/24 09/29/24 History release sertraline 25 mg tablet 25 mg PO BEDTIME 09/01/24 09/29/24 09/29/24 History Allergies Allergy/AdvReac Type Severity Reaction Status Date / Time lactose Allergy ADR-Diarrhe Verified 09/29/24 14:40 a Milk Containing Products AdvReac Severe ADR-Flatule Verified 09/29/24 14:40 (Dairy) nce Current Medications Generic Name Dose Route Start Last Admin Trade Name Freq PRN Reason Stop Dose Admin Sodium Chloride 1,000 mls @ 30 mls/hr 09/29/24 13:45 09/30/24 09:07 Sodium Chloride 0.9% IV 09/30/24 13:44 30 mls/hr .Q24H JEFF Administration PFSH Anesthesia Medical History GERD (gastroesophageal reflux disease) Hypothyroidism Instability of joint Spondylolisthesis, lumbar region Morbid obesity with BMI of 50.0-59.9, adult Lumbar stenosis with neurogenic claudication Intervertebral disc disorder with radiculopathy of lumbosacral region Spondylolisthesis (~08/15/16) Surgical History (Updated 09/01/24 @ 11:44 by Lizzeth Roman MD) History of gastric bypass History of cholecystectomy History of tonsillectomy History of knee surgery right knee laproscopic History of hysterectomy History of cervical spinal surgery (~2016) Dr. Abran Colindres Family History Mother Stroke Arthritis Social History Smoking and tobacco/nicotine status: unknown if used tobacco/nicotine Alcohol intake: never Substance/Drug Use: never Household members: spouse and family Marital status: Current occupational status: retired and disabled Data Anesthesia 09/30/24 09:00 09/30/24 09:00 Short CBC 09/30/24 Range/Units 09:00 WBC 3.47 (3.29-11.43) 10^3/uL Hgb 11.20 L (11.27-16.99) g/dL Hct 34.2 L (36-47) % MCV 86.6 (85-98) fl Plt Count 227 (157-399) 10^3/cmm Neut % (Auto) 66.2 % Neut # (Auto) 2.30 (1.8-7.7) 10^3/uL BMP 09/30/24 09:00 Sodium 144 Potassium 3.0 L Chloride 106 Carbon Dioxide 26 BUN 5 L Creatinine 0.5 Glucose 95 Calcium 9.1 Cardiac Studies: Echocardiogram 07/24/24
[2024-09-30] MEDS: ceFAZolin 2,000 mg SDV 2000 MG IVP (10:12)
[2024-09-30] MEDS: lidocaine-epi 1% 20 mL INJ INJECTION (10:58)
--- NOTE | 2024-09-30 12:07 | P.OP_ITS ---
Operative Report Date of procedure: September 30, 2024 Pre-op diagnosis: Lumbar stenosis with neurogenic claudication Post-op diagnosis: same Procedure done: 1. L2-3 laminectomy with partial facetectomy 2. L3-4 laminectomy with partial facetectomy 3. L4-5 laminectomy with partial facetectomy Surgeon: Parrish Shah DO Estimated blood loss (mL): 50 Procedure: 1. L2-3 laminectomy with partial facetectomy 2. L3-4 laminectomy with partial facetectomy 3. L4-5 laminectomy with partial facetectomy Patient is brought to the operative suite. After undergoing anesthesia they are placed in the prone position. All areas of impingement are well padded. Patient is then prepped and draped in the normal sterile fashion. A skin incision is made over the L2/3 level. This is confirmed under c-arm guidance. A series of dilators are passed and the tubular retractor is docked on the L2/3 lamina. A bovie is used to clear the soft tissue off the lamina and the L 2/3 facet joint. A high speed seng is then used to perform the laminectomy and take down the medial aspect of the L 2/3 facet joint. A kerrison rongeure was then used to take down the remaining lamina and smooth the edge of the laminectomy up to the point where the ligamentum flavum attaches. Attention was then brought to the medial aspect of the facet joint. The remaining medial aspect of the superior and inferior aspect of the facet joint were taken down with the kerrison from the pedicle of L2 to L 3. The facet j oint had significant hypertrophy. Attention was then brought to the Ligamentum Flavum. The ligament was taken down from the lamina of L2 to L3 and out medially to the remaining facet joint. The ligament was thick. The dura was then exposed. The dura was in good repair. The L2 nerve was then traced with a curette out the L2/3 foramen and found to be adequately decompressed. The L3 nerve was traced with a curette around the L3 pedicle. The lateral recess was opened with a kerrison helping to further decompress the L3 nerve. Wound is then irrigated copiously with saline and surgiflo is used to stop any bleeding. The tubular retractor is removed. A skin incision is made over the L3/4 level. This is confirmed under c-arm guidance. A series of dilators are passed and the tubular retractor is docked on the L3/4 lamina. A bovie is used to clear the soft tissue off the lamina and the L 3/4 facet joint. A high speed seng is then used to perform the laminectomy and take down the medial aspect of the L 3/4 facet joint. A kerrison rongeure was then used to take down the remaining lamina and smooth the edge of the laminectomy up to the point where the ligamentum flavum attaches. Attention was then brought to the medial aspect of the facet joint. The remaining medial aspect of the superior and inferior aspect of the facet joint were taken down with the kerrison from the pedicle of L3 to L 4. The facet joint had significant hypertrophy. Attention was then brought to the Ligamentum Flavum. The ligament was taken down from the lamina of L3 to L4 and out medially to the remaining facet joint. The ligament was thick. The dura was then exposed. The dura was in good repair. The L3 nerve was then traced with a curette out the L3/4 foramen and found to be adequately decompressed. The L4 nerve was traced with a curette around the L4 pedicle. The lateral recess was opened with a kerrison helping to further decompress the L4 nerve. Wound is then irrigated copiously with saline and surgiflo is used to stop any bleeding. The tubular retractor is removed. A skin incision is made over the L4/5 level. This is confirmed under c-arm guidance. A series of dilators are passed and the tubular retractor is docked on the L4/5 lamina. A bovie is used to clear the soft tissue off the lamina and the L 4/5 facet joint. A high speed seng is then used to perform the laminec theo and take down the medial aspect of the L 4/5 facet joint. A kerrison rongeure was then used to take down the remaining lamina and smooth the edge of the laminectomy up to the point where the ligamentum flavum attaches. Attention was then brought to the medial aspect of the facet joint. The remaining medial aspect of the superior and inferior aspect of the facet joint were taken down with the kerrison from the pedicle of L4 to L 5. The facet joint had significant hypertrophy. Attention was then brought to the Ligamentum Flavum. The ligament was taken down from the lamina of L4 to L5 and out medially to the remaining facet joint. The ligament was extremely thick. The dura was then exposed. The dura was in good repair. The L4 nerve was then traced with a curette out the L4/5 foramen and found to be adequately decompressed. The L5 nerve was traced with a curette around the L5 pedicle. The lateral recess was opened with a kerrison helping to further decompress the L5 nerve. Wound is then irrigated copiously with saline and surgiflo is used to stop any bleeding. The tubular retractor is removed and the wound is closed with vicryl and monocryl suture. Glue is then used to protect the wound. A sterile dressing is then placed. Patient was then placed in the supine position and transferred to the PACU in stable condition.
[2024-09-30] MEDS: racepinephrine 0.5 mL Neb INHALATION (12:19)
[2024-09-30] MEDS: diphenhydrAMINE 50 mg/mL SDV 1mL IVP (12:23)
[2024-09-30] MEDS: midazolam 1 mg/mL INJ 2 mL 0.5 MG IVP (12:25)
--- NOTE | 2024-09-30 13:12 | PC.NURSE ---
Patient arrived in PACU for phase 1 recovery at 1158 OR nurse was giving report while pt was being placed on monitors pt stated she did not feel as if she could breathe and was then placed on 10L simple mask pt O2 sats were 100% on the simple mask. The GATE OPERATOR that was with the patient administered sugammadex to aid the pt with her feeling of not being able to breathe pt did calm down after this was administered. Pt became more alert and stated she need to clear some sputum from her throat mask was removed at this time for the patient to do this she remained off of the mask and was having Sats at 94 and 94% on room air. At 1215 pt stated she felt as if she could not breathe again patient was placed back on the mask and anesthesia was notified. Anesthesia came to the bedside and assessed the patient racemic epi was ordered and administered to the patient [id number], an order was placed for 50mg Benadryl that was administered at 1223 the final order placed was for 0.5 of versed to help with pt comfort. Anesthesia remained at bedside for remainder of Phase 1 recovery. Pt was converted from a simple mask and 10L with Sats at 100% to a Nasal Cannula and 2L of O2 pt continued to sat at 100%.Pt is to remain in outpatient care until 1435 and released after final evaluation by anesthesia. Report given to Jaylin Juan RN pt released from Phase 1 recovery pt titrated down to 1% NC in Phase 2.
--- NOTE | 2024-09-30 13:13 | SUR.PHASEII ---
RECEIVED PT FROM PACU STAFF. A+O X 3. AIRWAY PATENT WITH GOOD CHEST RISE AND FALL. TOLERATED PO FLUIDS WELL. ROM AND SENSATION TO ALL 4 EXTREMITIES.
--- NOTE | 2024-09-30 13:40 | SUR.PHASEII ---
13:35 indirect warm air applied. Report given to [facility] nursing staff member, Bushra.
--- NOTE | 2024-09-30 13:48 | XR_ITS ---
WS: [id number] Lumbar spine, C-arm fluoroscopy views, 09/30/2024 Clinical Data: decompression, or pic Comparison: Lumbar spine, 11/29/2021 Findings: Dr. Shah performed a lumbar decompression. XR/XR lumbar spine 1V [id number] Impression: Lumbar decompression.
[2024-09-30] MEDS: oxyCODONE 5 mg IR Tab/Cap PO (14:21)
--- NOTE | 2024-09-30 14:27 | SUR.PHASEII ---
14:15 lumbar dressing dry and intact.
--- NOTE | 2024-09-30 15:10 | ANE.PACU2 ---
Inpatient post-anesthesia follow up: Airway intact: Yes Vital signs: Temperature 98.2 F Pulse Rate 76 Respiratory Rate 16 Blood Pressure 109/63 Pulse Oximetry 98 Oxygen Delivery Me thod Room Air Oxygen Flow Rate 1 Fraction of Inspir ed Oxygen Hydration adequate: Yes Nausea and vomiting: No Pain level: 1 Mental status: Baseline Additional Comments: Patient stridorous and anxious upon awakening in recovery, complaining she felt like her throat was closing off. Nebulized racemic epinephrine given for stridor, benadryl 50 mg IV for possible allergic reaction, and versed 0.5 mg IV for anxiety. Patient improved within 3 minutes, coughed up some thick mucus and showed no recurrence of any distress for remainder of recovery. Educated to return to ER or call ambulance if SOB or feeling of throat closing returns.
== END 2024-09-30 15:10 | disposition home or self-care (01) ==
PROVIDERS: PCP Family Medicine; Visit Provider Orthopaedic Surgery
PROC: (CPT 63005; principal; 2024-09-30 09:30)
DX: M48.062 Spinal stenosis, lumbar region with neurogenic claudication (principal); I48.91 Unspecified atrial fibrillation; I10 Essential (primary) hypertension; K21.9 Gastro-esophageal reflux disease without esophagitis; E03.9 Hypothyroidism, unspecified; Z98.84 Bariatric surgery status; Z79.899 Other long term (current) drug therapy; Z79.890 Hormone replacement therapy; Z91.011 Allergy to milk products; Z90.710 Acquired absence of both cervix and uterus; Z90.49 Acquired absence of other specified parts of digestive tract
CPT/HCPCS: 63047; 63048 ×3; 36415; 72020; 76000; 80048; 85025; A7003; J0131; J0690; J1100; J1200; J2250; J2405; J2704; J3010; J3490; J7030

== ENCOUNTER → 2024-10-13 16:12 | Outpatient (BNVA) | payer MEDICARE, SELFPAY | PROVIDERS: PCP Family Medicine; Visit Provider Orthopaedic Surgery | DX: Z98.890 Other specified postprocedural states (principal); M54.2 Cervicalgia | CPT/HCPCS: 72050; 99024 ==

== ENCOUNTER → 2024-10-20 07:50 | Outpatient (BNVA) | payer MEDICARE, SELFPAY | PROVIDERS: PCP Family Medicine; Referring Provider Orthopaedic Surgery; Visit Provider Nurse Practitioner Family | DX: M54.2 Cervicalgia (principal); M54.12 Radiculopathy, cervical region; G89.29 Other chronic pain; M47.812 Spondylosis without myelopathy or radiculopathy, cervical region | CPT/HCPCS: 99214 ==

== ENCOUNTER → 2024-10-26 12:47 | Outpatient (BNVA) | payer MEDICARE, SELFPAY | PROVIDERS: PCP Family Medicine; Visit Provider Student in an Organized Health Care Education/Training Program | DX: R78.81 Bacteremia (principal); B95.61 Methicillin susceptible Staphylococcus aureus infection as the cause of diseases classified elsewhere; M43.16 Spondylolisthesis, lumbar region; M48.062 Spinal stenosis, lumbar region with neurogenic claudication; Z98.84 Bariatric surgery status | CPT/HCPCS: 99215 ==

== ENCOUNTER → 2024-10-27 10:03 | Outpatient (BNVA) | payer MEDICARE, SELFPAY | PROVIDERS: PCP Family Medicine; Visit Provider Nurse Practitioner Family | DX: M79.18 Myalgia, other site (principal); M54.2 Cervicalgia; M54.12 Radiculopathy, cervical region; G89.29 Other chronic pain; M47.812 Spondylosis without myelopathy or radiculopathy, cervical region | CPT/HCPCS: 20553; 99214; J1010; J3490 ==

== ENCOUNTER → 2024-11-10 13:51 | Outpatient (BNVA) | payer MEDICARE, SELFPAY | PROVIDERS: PCP Family Medicine; Visit Provider Nurse Practitioner Family | DX: M54.2 Cervicalgia (principal); M54.12 Radiculopathy, cervical region; G89.29 Other chronic pain; M47.812 Spondylosis without myelopathy or radiculopathy, cervical region; Z98.890 Other specified postprocedural states | CPT/HCPCS: 99024; 99213 ==

== ENCOUNTER → 2024-11-18 09:46 | Outpatient (BNVA) | payer MEDICARE, SELFPAY | PROVIDERS: PCP Family Medicine; Visit Provider Anesthesiology Pain Medicine | DX: M47.812 Spondylosis without myelopathy or radiculopathy, cervical region (principal); M54.2 Cervicalgia | CPT/HCPCS: 64490; 64491; 64492; J3490; J9999 ==

== ENCOUNTER → 2024-12-02 10:56 | Outpatient (BNVA) | payer MEDICARE, SELFPAY | PROVIDERS: PCP Family Medicine; Visit Provider Nurse Practitioner Family | DX: M54.2 Cervicalgia (principal); M54.12 Radiculopathy, cervical region; G89.29 Other chronic pain; M47.812 Spondylosis without myelopathy or radiculopathy, cervical region | CPT/HCPCS: 99213 ==

== ENCOUNTER → 2024-12-22 12:41 | Outpatient (BNVA) | payer MEDICARE, SELFPAY | PROVIDERS: PCP Family Medicine; Visit Provider Orthopaedic Surgery | DX: Z98.890 Other specified postprocedural states (principal) | CPT/HCPCS: 99024 ==

== ENCOUNTER 2024-12-27 12:44 | Emergency (ER) | payer MEDICARE, SELFPAY ==
[2024-12-27 12:46] VITALS: BP 142/84; PULSE 83; TEMP 36.7; O2SAT 99; BMI 27.4
--- NOTE | 2024-12-27 13:11 | CTR_ITS ---
PROCEDURE INFORMATION: Exam: CT Abdomen And Pelvis With Contrast Exam date and time: 12/27/2024 2:04 PM Age: 64 years old Clinical indication: Abdominal pain; Colic; Prior surgery; Surgery date: 6+ months; Surgery type: Gb, gastric bypass; Additional info: Abd pain TECHNIQUE: Imaging protocol: Computed tomography of the abdomen and pelvis with contrast. Radiation optimization: All CT scans at this facility use at least one of these dose optimization techniques: automated exposure control; mA and/or kV adjustment per patient size (includes targeted exams where dose is matched to clinical indication); or iterative reconstruction. Contrast material: OMNIPAQUE 350; Contrast volume: 100 ml; Contrast route: INTRAVENOUS (IV); COMPARISON: [place] [id number] 07/27/2024 3:30 PM RADIATION DOSE METRICS: Total DLP (mGy-cm): 650.33 FINDINGS: Liver: There is a diffuse decrease in hepatic parenchymal density, consistent with fatty infiltration. Gallbladder and biliary ducts: There has been a cholecystectomy. Pancreas: Normal. No ductal dilation. Spleen: Normal. No splenomegaly. Adrenal glands: Normal. No mass. Kidneys and ureters: Normal. No hydronephrosis. Stomach and bowel: There has been a gastric stapling and bypass. Mild wall thickening of the jejunal loops with mucosal enhancement, filled with fluid. Appendix: No evidence of appendicitis. Intraperitoneal space: There is a small amount of free intraperitoneal fluid present. Vasculature: There are numerous benign phleboliths in the pelvis. Lymph nodes: Unremarkable. No enlarged lymph nodes. Urinary bladder: Unremarkable as visualized. Reproductive: Unremarkable as visualized. Bones/joints: Demineralization of the visualized bones, limiting sensitivity for nondisplaced fractures. The lumbar spine demonstrates moderate degenerative changes at multiple levels. Bilateral L4-L5 facet joint arthropathy with mild anterolisthesis of L4 over L5. There are moderate degenerative changes of the hip joints. The pubic symphysis demonstrates moderate degenerative changes. There are moderate degenerative changes of the sacroiliac joints. Mild curvature of the lumbar spine convex to the left. Soft tissues: There is diffuse body anasarca. There is a fat-containing umbilical hernia. CT/CT abdomen pelvis w con* [id number] IMPRESSION: 1. Findings consistent with enteritis. 2. No bowel obstruction.
[2024-12-27] MEDS: sodium chloride 0.9% 1,000 ML 999 ML IV (13:30)
--- NOTE | 2024-12-27 13:30 | W.ED.ABDPA2 ---
HPI - Abdominal Pain General: Chief Complaint: Abdominal Pain Stated Complaint: abd pain, n/v/d, bloody stool Time Seen by Provider: 12/27/24 12:48 Source: patient Mode of arrival: ambulatory Limitations: no limitations History of Present Illness: 64-year-old female who states that she been having abdominal pain over the last 3 days. She states that she been having some diarrhea as well states she had had weight loss surgery 2022 that she has had issues with. She had some dark stools unsure if she had any blood in her stool rates her pain a 7 out of 10 currently denies any worse improving factors. Associated Symptoms: Reports diarrhea, nausea and vomiting; Denies chills, dysuria and fever(s) Related Data Home Medications ?Medication ?Instructions ?Recorded ?Confirmed gabapentin 400 mg capsule 400 mg PO TID 10/23/19 12/27/24 pantoprazole 40 mg tablet,delayed 40 mg PO BID 09/01/24 12/27/24 release sertraline 25 mg tablet 25 mg PO BEDTIME 09/01/24 12/27/24 acetaminophen 325 mg capsule 325 mg PO QID PRN Pain 10/20/24 12/27/24 tramadol 50 mg tablet 50 mg PO Q6H PRN Pain 10/26/24 12/27/24 apixaban 5 mg tablet (Eliquis) 5 mg PO BID 12/27/24 12/27/24 levothyroxine 137 mcg tablet 137 mcg PO QAM 12/27/24 12/27/24 zleyabvt-ehdbdsly-teeq 45 mg-folic 1 cap PO QAM 12/27/24 12/27/24 acid 800 mcg-vit K 120 mcg capsule (Bariatric Multivitamins) Previous Rx's ?Medication ?Instructions ?Recorded ondansetron 4 mg disintegrating 4 mg PO Q6H PRN nausea and 12/27/24 tablet vomiting #14 tabs Allergies Allergy/AdvReac Type Severity Reaction Status Date / Time lactose Allergy ADR-Diarrhe Verified 12/27/24 12:53 a Milk Containing Products AdvReac Severe ADR-Flatule Verified 12/27/24 12:53 (Dairy) nce Review of Systems Const: Denies: fever(s), chills, body aches or change in appetite ENMT: Denies: throat pain or dental pain Card: Denies: chest pain Resp: Denies: dyspnea GI: Reports: abdominal pain, nausea, vomiting and diarrhea : Denies: dysuria Musc: Denies: neck pain or back pain Skin/Breast: Denies: rash Neuro: Denies: headache(s) PFS ED PFSH: Medical History GERD (gastroesophageal reflux disease) Hypothyroidism Instability of joint Spondylolisthesis, lumbar region Morbid obesity with BMI of 50.0-59.9, adult Lumbar stenosis with neurogenic claudication Intervertebral disc disorder with radiculopathy of lumbosacral region Spondylolisthesis (~08/15/16) Surgical History History of gastric bypass History of cholecystectomy History of tonsillectomy History of knee surgery right knee laproscopic History of hysterectomy History of cervical spinal surgery (~2016) Dr. Abran Deleon [place] Family History Mother Stroke Arthritis Social History Smoking and tobacco/nicotine status: unknown if used tobacco/nicotine Alcohol intake: never Substance/Drug Use: never Household members: spouse and family Marital status: Current occupational status: retired and disabled Physical Exam Const: COMMON NORMALS: no acute distress, patient oriented x3 and healthy appearing HENMT: COMMON NORMALS: normocephalic and atraumatic HEAD & SCALP: normocephalic and atraumatic Neck/C-Spine: COMMON NORMALS: full ROM and supple Chest: COMMONS NORMALS: normal inspection of the chest Resp: COMMON NORMALS: normal respiratory effort, No retractions, No use of accessory muscles and clear to auscultation bilaterally AUSCULTATION: clear to auscultation bilaterally Cardio: COMMON NORMALS: regular rate, regular rhythm and No murmurs present (Cardio) RATE: regular rate RHYTHM: regular rhythm GI: COMMON NORMALS: Normal to inspection, nondistended, normoactive bowel sounds present, Soft to palpation and no masses PALPATION: Yes Soft to palpation RECTAL EXAM: No heme positive stool OTHER: mild diffuse tenderness Extremity: COMMON NORMALS: normal to inspection and full ROM Neuro: COMMON NORMALS: patient oriented x3, moves all extremities and no focal motor deficits Psych: COMMON NORMALS: mental status grossly normal, Normal thought process present and cooperative THOUGHT PROCESS: Normal thought process present Skin: COMMON NORMALS: no rashes or lesions noted and no wounds GENERAL SKIN EXAM: no rashes or lesions noted Course Vital Signs: Vital signs: Vital Signs Temperature 98.1 F 12/27/24 12:46 Pulse Rate 78 12/27/24 14:36 Blood Pressure 142/84 12/27/24 12:46 Pulse Oximetry 93 12/27/24 14:36 Oxygen Delivery Me thod Room Air 12/27/24 12:46 MDM - Abdominal Pain Medical Decision Making Patient presents here with vomiting loss abdominal pain CT scan blood work here is normal she feels improved here we will prescribe her Zofran for home she is to follow-up with her PCP return if worsening she understands agrees to plan. Medical Records I reviewed the patient's medical records. Lab Data I reviewed the patient's lab results. 12/27/24 13:22 12/27/24 13:22 Labs/Radiology: Radiology Impressions Abdomen/Pelvis CT 12/27/24 13:11 IMPRESSION: 1. Findings consistent with enteritis. 2. No bowel obstruction. Laboratory Results WBC 6.56 10^3/uL (3.29-11.43) 12/27/24 13:22 RBC 2.86 10^6/uL (3.85-5.65) L 12/27/24 13:22 Hgb 9.10 g/dL (11.27-16.99) L 12/27/24 13:22 Hct 28.9 % (36-47) L 12/27/24 13:22 MCV 101.0 fl (85-98) H 12/27/24 13:22 MCH 31.8 pg (27-33) 12/27/24 13:22 MCHC 31.5 g/dL (30-55) 12/27/24 13:22 RDW 15.2 % (12.1-15.1) H 12/27/24 13:22 Plt Count 98 10^3/cmm (157-399) L 12/27/24 13:22 MPV 10.1 fL (7.4-10.4) 12/27/24 13:22 Neut % (Auto) 80.4 % 12/27/24 13:22 Lymph % (Auto) 15.9 % 12/27/24 13:22 [place] % (Auto) 3.2 % 12/27/24 13:22 Eos % (Auto) 0.0 % 12/27/24 13:22 Baso % (Auto) 0.2 % 12/27/24 13:22 Neut # (Auto) 5.28 10^3/uL (1.8-7.7) 12/27/24 13:22 Lymph # (Auto) 1.0 10^3/uL (0.8-4.8) 12/27/24 13:22 [place] # (Auto) 0.2 10^3/uL (0.2-0.9) 12/27/24 13:22 Eos # (Auto) 0.0 10^3/uL (0.0-0.8) 12/27/24 13:22 Baso # (Auto) 0.0 10^3/uL (0.0-0.1) 12/27/24 13:22 Nucleated RBC % (auto) 0 % 12/27/24 13:22 Nucleated RBCs # 0.0 /100WBC 12/27/24 13:22 PT 18.40 SECONDS (12.1-14.9) H 12/27/24 13:22 INR 1.44 (0.8-1.2) H 12/27/24 13:22 Sodium 137 mmol/L (136-145) 12/27/24 13:22 Potassium 3.1 mmol/L (3.5-5.1) L 12/27/24 13:22 Chloride 100 mmol/L (98-107) 12/27/24 13:22 Carbon Dioxide 20 mmol/L (22-29) L 12/27/24 13:22 Anion Gap 20.1 (5-19) H 12/27/24 13:22 BUN 10 mg/dL (8-23) 12/27/24 13:22 Creatinine 0.7 mg/dL (0.5-0.9) 12/27/24 13:22 GFR Calculation 84.0 mL/min (90-130) L 12/27/24 13:22 Glucose 84 mg/dL (65-115) 12/27/24 13:22 Calculated Osmolality 282 mOsm/kg (285-295) L 12/27/24 13:22 Calcium 8.8 mg/dL (8.5-10.5) 12/27/24 13:22 Total Bilirubin 2.2 mg/dL (0.15-1.2) H 12/27/24 13:22 AST 33 U/L (0-32) H 12/27/24 13:22 ALT 28 U/L (0-33) 12/27/24 13:22 Alkaline Phosphatase 139 U/L (35-105) H 12/27/24 13:22 Total Protein 4.7 g/dL (6.6-8.7) L 12/27/24 13:22 Albumin 2.2 g/dL (3.5-5.2) L 12/27/24 13:22 Globulin 2.5 g/dL (1.3-4.6) 12/27/24 13:22 Lipase 5 U/L (13-60) L 12/27/24 13:22 All radiology interpretation(s) finalized by discharge Discharge Plan Discharge Patient Disposition: Home Clinical Impression: Abdominal pain, Vomiting Condition: Stable Prescriptions: New ondansetron 4 mg tablet,disintegrating 4 mg PO Q6H PRN (Reason: nausea and vomiting) Qty: 14 0RF No Action gabapentin 400 mg capsule 400 mg PO TID pantoprazole 40 mg tablet,delayed release (DR/EC) 40 mg PO BID sertraline 25 mg tablet 25 mg PO BEDTIME tramadol 50 mg tablet 50 mg PO Q6H PRN (Reason: Pain) acetaminophen 325 mg capsule 325 mg PO QID PRN (Reason: Pain) levothyroxine 137 mcg tablet 137 mcg PO QAM Eliquis 5 mg tablet 5 mg PO BID Bariatric Multivitamins 45 mg iron- 800 mcg-120 mcg Capsule 1 cap PO QAM Discharge Orders: Discharge ED (Routine); Ordered 12/27/24 Ordered By: Gabo Huerta Referrals: Noel Landno MD [Primary Care Provider, Family Practice] - 4-7 days Discharge Diet: Advance as tolerated Discharge Activity: Resume usual activity Patient Instructions: Acute Nausea and Vomiting (ED), Abdominal Pain (ED) Print Language: Yakut Coding Level of Care Code 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
[2024-12-27] MEDS: morphine 4 mg/mL SDV 1 mL IVP (13:32)
[2024-12-27] MEDS: ondansetron 2 mg/ML SDV 2 mL 4 MG IVP (13:32)
[2024-12-27 13:38] LABS: Basophils % 0.2 %; Hematocrit 28.9 % (36-47); Lymphocytes % 15.9 %; Mean Corpuscular HGB Conc 31.5 g/dL (30-55); Mean Corpuscular Hemoglobin 31.8 pg (27-33); Mean Platelet Volume 10.1 fL (7.4-10.4); Monocytes # 0.2 10^3/uL (0.2-0.9); Monocytes % 3.2 %; Neutrophils # 5.28 10^3/uL (1.8-7.7); Neutrophils % 80.4 %; Nucleated Red Blood Cells % 0 %; Platelet Count 98 10^3/cmm (157-399); Red Blood Count 2.86 10^6/uL (3.85-5.65); Red Cell Distribution Width 15.2 % (12.1-15.1); White Blood Count 6.56 10^3/uL (3.29-11.43)
[2024-12-27 13:44] LABS: Alanine Aminotransferase 28 U/L (0-33); Albumin Level 2.2 g/dL (3.5-5.2); Alkaline Phosphatase 139 U/L (35-105); Anion Gap 20.1 (5-19); Aspartate Amino Transferase 33 U/L (0-32); Blood Urea Nitrogen 10 mg/dL (8-23); Calcium 8.8 mg/dL (8.5-10.5); Carbon Dioxide 20 mmol/L (22-29); Chloride 100 mmol/L (98-107); Creatinine Clr Calc Pharmacy 73.5166; Globulin 2.5 g/dL (1.3-4.6); Glucose 84 mg/dL (65-115); INR 1.44 (0.8-1.2); Lipase 5 U/L (13-60); Osmolality Calculated 282 mOsm/kg (285-295); Potassium 3.1 mmol/L (3.5-5.1); Sodium 137 mmol/L (136-145); Total Bilirubin 2.2 mg/dL (0.15-1.2); Total Protein 4.7 g/dL (6.6-8.7)
--- NOTE | 2024-12-27 13:51 | PC.PHAR ---
Pt did some time in [facility] for rehab in September 2024. Pt has been taken off of all blood pressure medications and several otc items were removed as pt is no longer taking them. Pt also requesting to be taken off of Eliquis-she is unable to afford it.
[2024-12-27] MEDS: iohexol 350 mg/mL 500 mL Btl (per mL) IV (14:06)
[2024-12-27 14:36] VITALS: PULSE 78; O2SAT 93
[2024-12-27 15:11] VITALS: BP 144/57; PULSE 81; O2SAT 96
== END 2024-12-27 15:12 | disposition home or self-care (01) ==
PROVIDERS: Emergency Provider Emergency Medicine; PCP Family Medicine
DX: R10.9 Unspecified abdominal pain (principal); R11.2 Nausea with vomiting, unspecified; E03.9 Hypothyroidism, unspecified; Z79.899 Other long term (current) drug therapy; Z79.01 Long term (current) use of anticoagulants; Z79.890 Hormone replacement therapy; Z98.84 Bariatric surgery status
CPT/HCPCS: 36415; 74177; 80053; 83690; 85025; 85610; 96361; 96374; 96375; 99285; J2270; J2405; J7030

== ENCOUNTER → 2025-01-05 10:13 | Outpatient (BNVA) | payer MEDICARE, SELFPAY | PROVIDERS: PCP Family Medicine; Visit Provider Orthopaedic Surgery | DX: S60.221A Contusion of right hand, initial encounter (principal); W22.09XA Striking against other stationary object, initial encounter | CPT/HCPCS: 99214 ==

== ENCOUNTER → 2025-01-06 09:39 | Outpatient (BNVA) | payer MEDICARE, SELFPAY | PROVIDERS: PCP Family Medicine; Visit Provider Nurse Practitioner Family | DX: M54.2 Cervicalgia (principal); M54.12 Radiculopathy, cervical region; G89.29 Other chronic pain; M47.812 Spondylosis without myelopathy or radiculopathy, cervical region | CPT/HCPCS: 99214 ==

== ENCOUNTER 2025-01-11 11:08 | Emergency (ER) | payer MEDICARE, SELFPAY ==
[2025-01-11] VITALS (21 sets, daily range): BP systolic 86–127; BP diastolic 44–79; PULSE 71–93; RESP 13–18; TEMP 36.4–37.1; O2SAT 92–100
--- NOTE | 2025-01-11 11:15 | XRR_ITS ---
PROCEDURE INFORMATION: Exam: XR Chest Exam date and time: 01/11/2025 11:31 AM Age: 64 years old Clinical indication: Other: Weakness TECHNIQUE: Imaging protocol: Radiologic exam of the chest. Views: 1 view. Total images: 1 COMPARISON: CR XR chest 1V portable [id number] 07/31/2024 12:08 PM FINDINGS: Lungs: Clear. Pleural spaces: No pleural effusion identified. Heart/Mediastinum: Cardiomediastinal silhouette is stable.. Bones/joints: No acute osseous abnormality identified. XR/XR chest 1V portable [id number] IMPRESSION: No acute cardiopulmonary abnormality identified.
--- NOTE | 2025-01-11 11:15 | CT_ITS ---
WS: [id number] CT HEAD NONCONTRAST HISTORY: ams TECHNIQUE: Contiguous axial imaging performed through the brain. Bone and soft tissue windows. Sagittal and coronal reformats reviewed. All CT scans at [facility] use at least one of these dose optimization techniques: automated exposure control; mA and/or kV adjustment per patient size (includes targeted exams where dose is matched to clinical indication); or iterative reconstruction. DLP: 2178.75 mGy.cm COMPARISON: 07/27/2024 No acute intracranial hemorrhage, midline shift or mass effect. Mild atrophy and small vessel disease. Small lacunar infarct in the RIGHT arroy[place] radiata. This is not an acute infarct but new since 07/27/2024. Ventricles: Normal size with no hydrocephalus. No inferior displacement of the cerebellar tonsils. Paranasal sinuses: As visualized are clear. Mastoid air cells: Well pneumatized. Calvarium and scalp: Skull is intact with no soft tissue edema or swelling. CT/CT head wo con* [id number] IMPRESSION: 1. No acute intracranial hemorrhage or edema. 2. Small RIGHT [place] radi[place] lacunar infarct is not acute. 3. Mild small vessel disease and cerebral atrophy.
--- NOTE | 2025-01-11 11:15 | CT_ITS ---
WS: [id number] CT ABDOMEN AND PELVIS WITH CONTRAST HISTORY: abd pain, pain for 2 days. TECHNIQUE: Imaging performed of the abdomen and pelvis with IV contrast. Single phase imaging of the abdomen. Coronal and sagittal reformats are submitted. All CT scans at [facility] use at least one of these dose optimization techniques: automated exposure control; mA and/or kV adjustment per patient size (includes targeted exams where dose is matched to clinical indication); or iterative reconstruction. IV CONTRAST: Omnipaque 350; 100 mL IV. Oral contrast: No DLP: 2178.75 mGy.cm COMPARISON: 12/27/2024 Lower thorax: New small LEFT pleural effusion. Heart size is normal. Very small pericardial effusion. Heart is normal size. No hiatal hernia. Liver/biliary system: Severe diffuse hepatic steatosis. No intrahepatic duct dilatation. Normal portal vein. Gallbladder: Prior cholecystectomy. Pancreas: Mild atrophy and fatty replacement. Spleen: Normal size spleen. No mass or infarct. Adrenal glands: Normal. Right kidney: Normal. Left kidney: Normal. Aorta: Normal. Lymphadenopathy: None. Free fluid: There is a small amount of free fluid in the pelvis which is slightly increased in amount since 12/27/2024. GI tract: Stomach is nondistended. Prior gastric bypass. No small bowel obstruction. No colon obstruction. No colitis. Less wall thickening of the jejunal loops. Abdominal wall: There is diffuse soft tissue anasarca throughout the abdomen and pelvis which has progressed. Mesenteric edema. Pelvis: Free fluid in the pelvis. Prior hysterectomy. Bones: L4 anterolisthesis by 5 mm. Advanced facet joint arthropathy in the lumbar spine. CT/CT abdomen pelvis w con* [id number] IMPRESSION: 1. Increasing mesenteric edema and soft tissue anasarca. 2. Severe hepatic steatosis. 3. No GI tract obstruction. Improved jejunal wall thickening and edema. 4. Prior cholecystectomy. 5. New small LEFT pleural effusion. 6. Small but slightly increased free fluid in the pelvis.
--- NOTE | 2025-01-11 11:16 | ECG_ITS ---
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 Measurements Intervals [place] Rate: 68 P: 203 UT: 152 QRS: 92 QRSD: 126 T: 84 QT: 431 QTc: 459 Interpretive Statements ECTOPIC ATRIAL RHYTHM RIGHT BUNDLE BRANCH BLOCK [120+ ms QRS DURATION, UPRIGHT V1, 40+ ms S IN I/aVL/V4/V5/V6] Compared to ECG 07/26/2024 03:40:52 Ectopic atrial rhythm now present Atrial fibrillation no longer present Left-axis deviation no longer present Electronically Signed On 01-13-2025 22:09:00 CDT by Derrick Ward M.D. [email or web address]
--- NOTE | 2025-01-11 11:37 | W.ED.AMS ---
Documented by User: Gabo Huerta MD 01/11/25 11:42 HPI - Altered Mental Status General: Chief Complaint: Altered Mental Status Stated Complaint: ams Time Seen by Provider: 01/11/25 11:08 Source: patient and EMS Mode of arrival: EMS Limitations: altered mental status History of Present Illness: 64-year-old female who is here with altered mental status she has been having some altered mental status has been going on for 2 days per EMS she has some mild dementia at baseline she is able answer me, her name but not able to tell me where she is or the date. She is complaining some abdominal pain no focal deficits no fevers Related Data Home Medications ?Medication ?Instructions ?Recorded ?Confirmed acetaminophen 325 mg capsule 325 mg PO QID PRN Pain 10/20/24 01/11/25 tramadol 50 mg tablet 50 mg PO Q6H PRN Pain 10/26/24 01/11/25 apixaban 5 mg tablet (Eliquis) 5 mg PO BID 12/27/24 01/11/25 levothyroxine 137 mcg tablet 137 mcg PO QAM 12/27/24 01/11/25 jouepthu-sjrjoctr-jjak 45 mg-folic 1 cap PO QAM 12/27/24 01/11/25 acid 800 mcg-vit K 120 mcg capsule (Bariatric Multivitamins) cetirizine 10 mg tablet 10 mg PO DAILY 01/11/25 01/11/25 dicyclomine 10 mg capsule 10 mg PO DAILY 01/11/25 01/11/25 gabapentin 400 mg capsule 400 mg PO TID 01/11/25 01/11/25 linezolid 600 mg tablet 600 mg PO Q12H 01/11/25 01/11/25 omeprazole 20 mg capsule,delayed 20 mg PO DAILY 01/11/25 01/11/25 release sertraline 25 mg tablet 25 mg PO BEDTIME 01/11/25 01/11/25 Previous Rx's ?Medication ?Instructions ?Recorded ondansetron 4 mg disintegrating 4 mg PO Q6H PRN nausea and 12/27/24 tablet vomiting #14 tabs Allergies Allergy/AdvReac Type Severity Reaction Status Date / Time lactose Allergy ADR-Diarrhe Verified 01/06/25 09:40 a Milk Containing Products AdvReac Severe ADR-Flatule Verified 01/06/25 09:40 (Dairy) nce Review of Systems General: Reports: ROS unobtainable due to mental status PFSH ED PFSH: Medical History (Updated 01/11/25 @ 19:55 by Edward Chávez DO) Staphylococcus aureus bacteremia GERD (gastroesophageal reflux disease) Hypothyroidism Instability of joint Spondylolisthesis, lumbar region Morbid obesity with BMI of 50.0-59.9, adult Lumbar stenosis with neurogenic claudication Intervertebral disc disorder with radiculopathy of lumbosacral region Spondylolisthesis (~08/15/16) Surgical History (Updated 01/11/25 @ 21:24 by Edward Chávez DO) Hx of colonoscopy History of esophagogastroduodenoscopy (EGD) Adrienne [place] History of gastric bypass History of cholecystectomy History of tonsillectomy History of knee surgery right knee laproscopic History of hysterectomy History of cervical spinal surgery (~2016) Dr. Abran Colindres Family History Mother Stroke Arthritis Social History Smoking and tobacco/nicotine status: unknown if used tobacco/nicotine Alcohol intake: never Substance/Drug Use: never Household members: spouse and family Marital status: Current occupational status: retired and disabled Physical Exam Const: COMMON NORMALS: negative for patient oriented x3 HENMT: COMMON NORMALS: normocephalic and atraumatic HEAD & SCALP: normocephalic and atraumatic Eye: COMMON NORMALS: Equal, round and reactive pupils present and EOMs intact bilaterally PUPIL: Yes Equal, round and reactive pupils present Neck/C-Spine: COMMON NORMALS: full ROM and supple Chest: COMMONS NORMALS: normal inspection of the chest Resp: COMMON NORMALS: normal respiratory effort, No retractions, No use of accessory muscles and clear to auscultation bilaterally AUSCULTATION: clear to auscultation bilaterally Cardio: COMMON NORMALS: regular rate, regular rhythm and No murmurs present (Cardio) RATE: regular rate RHYTHM: regular rhythm GI: COMMON NORMALS: Normal to inspection, nondistended, normoactive bowel sounds present, Soft to palpation, non-tender and no masses PALPATION: Yes Soft to palpation Extremity: COMMON NORMALS: normal to inspection and full ROM Neuro: COMMON NORMALS: moves all extremities and no focal motor deficits; negative for patient oriented x3 Psych: COMMON NORMALS: cooperative Skin: COMMON NORMALS: no rashes or lesions noted and no wounds GENERAL SKIN EXAM: no rashes or lesions noted Course Vital Signs: Vital signs: Vital Signs Temperature 97.8 F 01/11/25 19:59 Pulse Rate 71 01/11/25 21:13 Respiratory Rate 16 01/11/25 21:13 Blood Pressure 127/62 01/11/25 21:13 Pulse Oximetry 100 01/11/25 21:13 Oxygen Delivery Me thod Nasal Cannula 01/11/25 20:03 Oxygen Flow Rate 6 01/11/25 20:03 MDM - Altered Mental Status Lab Data 01/11/25 17:05 01/11/25 13:10 Radiology Impressions Abdomen/Pelvis CT 01/11/25 11:15 IMPRESSION: 1. Increasing mesenteric edema and soft tissue anasarca. 2. Severe hepatic steatosis. 3. No GI tract obstruction. Improved jejunal wall thickening and edema. 4. Prior cholecystectomy. 5. New small LEFT pleural effusion. 6. Small but slightly increased free fluid in the pelvis. Head CT 01/11/25 11:15 IMPRESSION: 1. No acute intracranial hemorrhage or edema. 2. Small RIGHT arroyo radiata lacunar infarct is not acute. 3. Mild small vessel disease and cerebral atrophy. Chest X-Ray 01/11/25 20:49 IMPRESSION: Right IJ line tip now projects at location expected for the superior cavoatrial junction. Laboratory Results WBC 3.96 10^3/uL (3.29-11.43) 01/11/25 13:10 RBC 2.11 10^6/uL (3.85-5.65) L 01/11/25 13:10 Hgb 6.20 g/dL (11.27-16.99) L* 01/11/25 17:05 Hct 18.5 % (36-47) L* 01/11/25 17:05 MCV 96.2 fl (85-98) 01/11/25 13:10 MCH 32.7 pg (27-33) 01/11/25 13:10 MCHC 34.0 g/dL (30-55) 01/11/25 13:10 RDW 18.4 % (12.1-15.1) H 01/11/25 13:10 Plt Count 138 10^3/cmm (157-399) L 01/11/25 13:10 MPV 9.9 fL (7.4-10.4) 01/11/25 13:10 Neut % (Auto) 58.2 % 01/11/25 13:10 Lymph % (Auto) 35.9 % 01/11/25 13:10 Morris % (Auto) 5.3 % 01/11/25 13:10 Eos % (Auto) 0.3 % 01/11/25 13:10 Baso % (Auto) 0.3 % 01/11/25 13:10 Neut # (Auto) 2.31 10^3/uL (1.8-7.7) 01/11/25 13:10 Lymph # (Auto) 1.4 10^3/uL (0.8-4.8) 01/11/25 13:10 Morris # (Auto) 0.2 10^3/uL (0.2-0.9) 01/11/25 13:10 Eos # (Auto) 0.0 10^3/uL (0.0-0.8) 01/11/25 13:10 Baso # (Auto) 0.0 10^3/uL (0.0-0.1) 01/11/25 13:10 Nucleated RBC % (auto) 0 % 01/11/25 13:10 Nucleated RBCs # 0.0 /100WBC 01/11/25 13:10 PT 17.70 SECONDS (12.1-14.9) H 01/11/25 13:10 INR 1.36 (0.8-1.2) H 01/11/25 13:10 Sodium 135 mmol/L (136-145) L 01/11/25 13:10 Potassium 3.0 mmol/L (3.5-5.1) L 01/11/25 13:10 Chloride 94 mmol/L (98-107) L 01/11/25 13:10 Carbon Dioxide 17 mmol/L (22-29) L 01/11/25 13:10 Anion Gap 27.0 (5-19) H 01/11/25 13:10 BUN 15 mg/dL (8-23) 01/11/25 13:10 Creatinine 0.9 mg/dL (0.5-0.9) 01/11/25 13:10 GFR Calculation 62.8 mL/min (90-130) L 01/11/25 13:10 Glucose 98 mg/dL (65-115) 01/11/25 13:10 POC Glucose 114 mg/dL (70-110) H 01/11/25 12:01 Calculated Osmolality 281 mOsm/kg (285-295) L 01/11/25 13:10 Lactic Acid 8.0 mmol/L (0.5-2.2) H* 01/11/25 17:05 Lactic Acid (Sepsis) 6.4 mmol/L (0.5-2.2) H* 01/11/25 20:02 Calcium 9.3 mg/dL (8.5-10.5) 01/11/25 13:10 Total Bilirubin 2.7 mg/dL (0.15-1.2) H 01/11/25 13:10 AST 55 U/L (0-32) H 01/11/25 13:10 ALT 45 U/L (0-33) H 01/11/25 13:10 Alkaline Phosphatase 207 U/L (35-105) H 01/11/25 13:10 Troponin T Baseline 64 ng/L (0-10) H 01/11/25 13:10 Troponin T 120 Minute 59.51 ng/L (0-10) H 01/11/25 15:46 Delta Troponin T -4.49 ABS# (0-10) L 01/11/25 15:46 Troponin T Hi Sens 6Hr 58.16 ng/L (0-10) H 01/11/25 18:47 Troponin T Hi Sens 6Hr Delta -5.84 ng/L (0-12) L 01/11/25 18:47 Total Protein 4.4 g/dL (6.6-8.7) L 01/11/25 13:10 Albumin 2.4 g/dL (3.5-5.2) L 01/11/25 13:10 Globulin 2.0 g/dL (1.3-4.6) 01/11/25 13:10 Lipase 21 U/L (13-60) 01/11/25 13:10 Procalcitonin 1.04 ng/mL (0-0.5) H 01/11/25 14:08 TSH 11.35 uIU/mL (0.27-4.20) H 01/11/25 13:10 Urine Color Hermann (Yellow) A 01/11/25 14:11 Urine Appearance Clear (CLEAR) 01/11/25 14:11 Urine pH 6.0 (5-7) 01/11/25 14:11 Ur Specific [place] 1.032 (1.005-1.030) H 01/11/25 14:11 Urine Protein Trace (Negative) A 01/11/25 14:11 Urine Glucose (UA) Negative (Normal) 01/11/25 14:11 Urine Ketones 1+ (Negative) H 01/11/25 14:11 Urine Blood Negative (Negative) 01/11/25 14:11 Urine Nitrate Positive (Negative) A 01/11/25 14:11 Urine Bilirubin 1+ (Negative) H 01/11/25 14:11 Urine Urobilinogen 0.2 mg/dL (Negative) 01/11/25 14:11 Ur Leukocyte Esterase Negative (Negative) 01/11/25 14:11 Urine RBC 0-2 /hpf (0-2) 01/11/25 14:11 Urine WBC 0-5 /hpf (0-5) 01/11/25 14:11 Ur Squamous Epith Cells 0-5 /hpf (0-5) 01/11/25 14:11 Amorphous Sediment Not Reportable 01/11/25 14:11 Urine Bacteria 4+ /hpf (NONE) H 01/11/25 14:11 Hyaline Casts 6.61 /lpf 01/11/25 14:11 Blood Type A Negative 01/11/25 13:43 Rho(D) Type Rh negative 01/11/25 13:43 Antibody Screen Negative 01/11/25 13:43 Crossmatch See Detail 01/11/25 13:43 Discharge Plan Discharge Patient Disposition: Xfer Short-Term Hosp Clinical Impression: Acute upper GI bleeding, History of gastric bypass Condition: Stable Referrals: Noel Landon MD [Primary Care Provider, [facility]] Patient Instructions: Altered Mental Status (ED) Print Language: Romanian Coding Level of Care Code ED Dextrine Mixer for Chg Fwd Documented by User: Edward Chávez DO 01/11/25 21:24 HPI - Altered Mental Status General: Chief Complaint: Altered Mental Status Stated Complaint: ams Time Seen by Provider: 01/11/25 11:08 Related Data Home Medications ?Medication ?Instructions ?Recorded ?Confirmed acetaminophen 325 mg capsule 325 mg PO QID PRN Pain 10/20/24 01/11/25 tramadol 50 mg tablet 50 mg PO Q6H PRN Pain 10/26/24 01/11/25 apixaban 5 mg tablet (Eliquis) 5 mg PO BID 12/27/24 01/11/25 levothyroxine 137 mcg tablet 137 mcg PO QAM 12/27/24 01/11/25 amtknfhr-yzvuwilq-cnhr 45 mg-folic 1 cap PO QAM 12/27/24 01/11/25 acid 800 mcg-vit K 120 mcg capsule (Bariatric Multivitamins) cetirizine 10 mg tablet 10 mg PO DAILY 01/11/25 01/11/25 dicyclomine 10 mg capsule 10 mg PO DAILY 01/11/25 01/11/25 gabapentin 400 mg capsule 400 mg PO TID 01/11/25 01/11/25 linezolid 600 mg tablet 600 mg PO Q12H 01/11/25 01/11/25 omeprazole 20 mg capsule,delayed 20 mg PO DAILY 01/11/25 01/11/25 release sertraline 25 mg tablet 25 mg PO BEDTIME 01/11/25 01/11/25 Previous Rx's ?Medication ?Instructions ?Recorded ondansetron 4 mg disintegrating 4 mg PO Q6H PRN nausea and 12/27/24 tablet vomiting #14 tabs Allergies Allergy/AdvReac Type Severity Reaction Status Date / Time lactose Allergy ADR-Diarrhe Verified 01/06/25 09:40 a Milk Containing Products AdvReac Severe ADR-Flatule Verified 01/06/25 09:40 (Dairy) kye [facility] ED PFSH: Medical History (Updated 01/11/25 @ 19:55 by Edward Chávez DO) Staphylococcus aureus bacteremia GERD (gastroesophageal reflux disease) Hypothyroidism Instability of joint Spondylolisthesis, lumbar region Morbid obesity with BMI of 50.0-59.9, adult Lumbar stenosis with neurogenic claudication Intervertebral disc disorder with radiculopathy of lumbosacral region Spondylolisthesis (~08/15/16) Surgical History (Updated 01/11/25 @ 21:24 by dEward Chávez DO) Hx of colonoscopy History of esophagogastroduodenoscopy (EGD) Adrienne Colindres [place] History of gastric bypass History of cholecystectomy History of tonsillectomy History of knee surgery right knee laproscopic History of hysterectomy History of cervical spinal surgery (~2016) Dr. Abran Colindres Family History Mother Stroke Arthritis Social History Smoking and tobacco/nicotine status: unknown if used tobacco/nicotine Alcohol intake: never Substance/Drug Use: never Household members: spouse and family Marital status: Current occupational status: retired and disabled Procedures Central Line Placement Right IJ: Time Out Performed: Yes Patient Placed on Monitor/Pulse Ox: Yes MD Prep: mask, gown and gloves Central Line Prep: Chlorhexidine scrub Local Anesthetic: lidocaine 1% Amount of anesthesia used (mL): 4 Ultrasound Used for Placement: Yes Central Line Lumen Inserted: triple Post Procedure: sutured in place, good blood return, all ports aspirated, flushed, capped and sterile dressing applied Post Procedure X-Ray: other (Tip slightly dip deep on first chest x-ray retracted 6 cm) Patient Tolerated Procedure: well Complications: none Additional Comments: After first chest x-ray line retracted 6 cm and resecured in bandage. Repeat chest x-ray good position Procedural Sedation Indication: other (Central line placement) ASA Class: I Time of Last PO Intake: 08:00 Preparation: casting sorter applied, pulse oximeter, supplemental O2 applied, suction/airway equipment at bedside and IV secured Ketamine: IV Ketamine dose (mg): 100 Interventions: oxygen applied, airway repositioned and other (Nasopharyngeal airway) Additional Comments: Patient experienced mild respiratory depression shortly after the administration of ketamine this was abated with placement nasopharyngeal airway and increased supplemental oxygen she tolerated the wrist procedure well Course Vital Signs: Vital signs: Vital Signs Temperature 97.8 F 01/11/25 19:59 Pulse Rate 71 01/11/25 21:13 Respiratory Rate 16 01/11/25 21:13 Blood Pressure 127/62 01/11/25 21:13 Pulse Oximetry 100 01/11/25 21:13 Oxygen Delivery Me thod Nasal Cannula 01/11/25 20:03 Oxygen Flow Rate 6 01/11/25 20:03 MDM - Altered Mental Status Medical Decision Making Initial plan to admit to here however general surgery says they have previously evaluated the patient on outpatient basis she had a duodenal switch and wanted her transferred to a different facility. She had her procedure done at [facility] they are not taking any patients today because of lack of available beds I made arrangements to transfer patient to [facility] in [place]. Waiting back on bed assignment from medicine. Patient transfused 1 unit of blood repeat hemoglobin was actually down despite receiving a unit. She has not had any active bleeding that we have been able to visualize she has been given 1 unit of blood. She was given TXA she is already received Protonix. Will administer 2 more units of blood unit of fresh frozen plasma and unit of platelets. Suspect her lactic acid is due to hypotension from her continued bleeding and tissue ischemia likely from the site of bleeding. Difficult time maintaining access and a central line was placed. Medical Records I reviewed the patient's medical records. Lab Data I reviewed the patient's lab results. 01/11/25 17:05 01/11/25 13:10 Radiology Impressions Abdomen/Pelvis CT 01/11/25 11:15 IMPRESSION: 1. Increasing mesenteric edema and soft tissue anasarca. 2. Severe hepatic steatosis. 3. No GI tract obstruction. Improved jejunal wall thickening and edema. 4. Prior cholecystectomy. 5. New small LEFT pleural effusion. 6. Small but slightly increased free fluid in the pelvis. Head CT 01/11/25 11:15 IMPRESSION: 1. No acute intracranial hemorrhage or edema. 2. Small RIGHT arroyo radiata lacunar infarct is not acute. 3. Mild small vessel disease and cerebral atrophy. Chest X-Ray 01/11/25 20:49 IMPRESSION: Right IJ line tip now projects at location expected for the superior cavoatrial junction. Laboratory Results WBC 3.96 10^3/uL (3.29-11.43) 01/11/25 13:10 RBC 2.11 10^6/uL (3.85-5.65) L 01/11/25 13:10 Hgb 6.20 g/dL (11.27-16.99) L* 01/11/25 17:05 Hct 18.5 % (36-47) L* 01/11/25 17:05 MCV 96.2 fl (85-98) 01/11/25 13:10 MCH 32.7 pg (27-33) 01/11/25 13:10 MCHC 34.0 g/dL (30-55) 01/11/25 13:10 RDW 18.4 % (12.1-15.1) H 01/11/25 13:10 Plt Count 138 10^3/cmm (157-399) L 01/11/25 13:10 MPV 9.9 fL (7.4-10.4) 01/11/25 13:10 Neut % (Auto) 58.2 % 01/11/25 13:10 Lymph % (Auto) 35.9 % 01/11/25 13:10 Morris % (Auto) 5.3 % 01/11/25 13:10 Eos % (Auto) 0.3 % 01/11/25 13:10 Baso % (Auto) 0.3 % 01/11/25 13:10 Neut # (Auto) 2.31 10^3/uL (1.8-7.7) 01/11/25 13:10 Lymph # (Auto) 1.4 10^3/uL (0.8-4.8) 01/11/25 13:10 Morris # (Auto) 0.2 10^3/uL (0.2-0.9) 01/11/25 13:10 Eos # (Auto) 0.0 10^3/uL (0.0-0.8) 01/11/25 13:10 Baso # (Auto) 0.0 10^3/uL (0.0-0.1) 01/11/25 13:10 Nucleated RBC % (auto) 0 % 01/11/25 13:10 Nucleated RBCs # 0.0 /100WBC 01/11/25 13:10 PT 17.70 SECONDS (12.1-14.9) H 01/11/25 13:10 INR 1.36 (0.8-1.2) H 01/11/25 13:10 Sodium 135 mmol/L (136-145) L 01/11/25 13:10 Potassium 3.0 mmol/L (3.5-5.1) L 01/11/25 13:10 Chloride 94 mmol/L (98-107) L 01/11/25 13:10 Carbon Dioxide 17 mmol/L (22-29) L 01/11/25 13:10 Anion Gap 27.0 (5-19) H 01/11/25 13:10 BUN 15 mg/dL (8-23) 01/11/25 13:10 Creatinine 0.9 mg/dL (0.5-0.9) 01/11/25 13:10 GFR Calculation 62.8 mL/min (90-130) L 01/11/25 13:10 Glucose 98 mg/dL (65-115) 01/11/25 13:10 POC Glucose 114 mg/dL (70-110) H 01/11/25 12:01 Calculated Osmolality 281 mOsm/kg (285-295) L 01/11/25 13:10 Lactic Acid 8.0 mmol/L (0.5-2.2) H* 01/11/25 17:05 Lactic Acid (Sepsis) 6.4 mmol/L (0.5-2.2) H* 01/11/25 20:02 Calcium 9.3 mg/dL (8.5-10.5) 01/11/25 13:10 Total Bilirubin 2.7 mg/dL (0.15-1.2) H 01/11/25 13:10 AST 55 U/L (0-32) H 01/11/25 13:10 ALT 45 U/L (0-33) H 01/11/25 13:10 Alkaline Phosphatase 207 U/L (35-105) H 01/11/25 13:10 Troponin T Baseline 64 ng/L (0-10) H 01/11/25 13:10 Troponin T 120 Minute 59.51 ng/L (0-10) H 01/11/25 15:46 Delta Troponin T -4.49 ABS# (0-10) L 01/11/25 15:46 Troponin T Hi Sens 6Hr 58.16 ng/L (0-10) H 01/11/25 18:47 Troponin T Hi Sens 6Hr Delta -5.84 ng/L (0-12) L 01/11/25 18:47 Total Protein 4.4 g/dL (6.6-8.7) L 01/11/25 13:10 Albumin 2.4 g/dL (3.5-5.2) L 01/11/25 13:10 Globulin 2.0 g/dL (1.3-4.6) 01/11/25 13:10 Lipase 21 U/L (13-60) 01/11/25 13:10 Procalcitonin 1.04 ng/mL (0-0.5) H 01/11/25 14:08 TSH 11.35 uIU/mL (0.27-4.20) H 01/11/25 13:10 Urine Color Hermann (Yellow) A 01/11/25 14:11 Urine Appearance Clear (CLEAR) 01/11/25 14:11 Urine pH 6.0 (5-7) 01/11/25 14:11 Ur Specific [place] 1.032 (1.005-1.030) H 01/11/25 14:11 Urine Protein Trace (Negative) A 01/11/25 14:11 Urine Glucose (UA) Negative (Normal) 01/11/25 14:11 Urine Ketones 1+ (Negative) H 01/11/25 14:11 Urine Blood Negative (Negative) 01/11/25 14:11 Urine Nitrate Positive (Negative) A 01/11/25 14:11 Urine Bilirubin 1+ (Negative) H 01/11/25 14:11 Urine Urobilinogen 0.2 mg/dL (Negative) 01/11/25 14:11 Ur Leukocyte Esterase Negative (Negative) 01/11/25 14:11 Urine RBC 0-2 /hpf (0-2) 01/11/25 14:11 Urine WBC 0-5 /hpf (0-5) 01/11/25 14:11 Ur Squamous Epith Cells 0-5 /hpf (0-5) 01/11/25 14:11 Amorphous Sediment Not Reportable 01/11/25 14:11 Urine Bacteria 4+ /hpf (NONE) H 01/11/25 14:11 Hyaline Casts 6.61 /lpf 01/11/25 14:11 Blood Type A Negative 01/11/25 13:43 Rho(D) Type Rh negative 01/11/25 13:43 Antibody Screen Negative 01/11/25 13:43 Crossmatch See Detail 01/11/25 13:43 All radiology interpretation(s) finalized by discharge Discharge Plan Discharge Patient Disposition: Xfer Short-Term Hosp Clinical Impression: Acute upper GI bleeding, History of gastric bypass Condition: Stable Referrals: Noel Landon MD [Primary Care Provider, [facility]] Patient Instructions: Altered Mental Status (ED) Print Language: Romanian Coding Level of Care Code ED Dextrine Mixer for Harshal Momin
[2025-01-11 12:04] LABS: Glucose Point of Care 114 mg/dL (70-110)
[2025-01-11 13:14] LABS: Basophils % 0.3 %; Eosinophils % 0.3 %; Lymphocytes # 1.4 10^3/uL (0.8-4.8); Lymphocytes % 35.9 %; Mean Corpuscular Hemoglobin 32.7 pg (27-33); Mean Corpuscular Volume 96.2 fl (85-98); Mean Platelet Volume 9.9 fL (7.4-10.4); Monocytes # 0.2 10^3/uL (0.2-0.9); Monocytes % 5.3 %; Neutrophils # 2.31 10^3/uL (1.8-7.7); Neutrophils % 58.2 %; Nucleated Red Blood Cells % 0 %; Platelet Count 138 10^3/cmm (157-399); Red Blood Count 2.11 10^6/uL (3.85-5.65); Red Cell Distribution Width 18.4 % (12.1-15.1); White Blood Count 3.96 10^3/uL (3.29-11.43)
[2025-01-11 13:15] LABS: Hematocrit 20.3 % (36-47)
--- NOTE | 2025-01-11 13:16 | ECG_ITS ---
[facility] Pat Name: Suma Rush Department: Room: Gender: Female Clamp Remover: : 1960 Requested By: Gabo Huerta Order Number: [id number] Lisa MD: Derrick Ward M.D. Measurements Intervals [place] Rate: 89 P: 79 HI: 152 QRS: -57 QRSD: 84 T: 0 QT: 184 QTc: 224 Interpretive Statements SINUS RHYTHM LOW QRS VOLTAGE [QRS DEFLECTION < 0.5/1.0 mV IN LIMB/CHEST LEADS] LEFT ANTERIOR FASCICULAR BLOCK [QRS AXIS <= -45, QR IN I, RS IN II] POSSIBLE INFERIOR MYOCARDIAL INFARCTION , PROBABLY OLD [30 ms Q WAVE IN II/aVF] Compared to ECG 01/11/2025 11:53:16 Low QRS voltage now present Left anterior fascicular block now present Myocardial infarct finding now present Ectopic atrial rhythm no longer present Right bundle-branch block no longer present Electronically Signed On 01-13-2025 22:22:47 CDT by Derrick Ward M.D. [email or web address]
--- NOTE | 2025-01-11 13:27 | PC.NURSE ---
this nurse assumed pt care from Melissa GUIDO at 1315.
[2025-01-11] MEDS: iohexol 350 mg/mL 500 mL Btl (per mL) IV (13:30)
[2025-01-11 13:31] LABS: INR 1.36 (0.8-1.2)
[2025-01-11 13:37] LABS: Troponin(5th) Baseline 64 ng/L (0-10)
[2025-01-11 13:38] LABS: Alanine Aminotransferase 45 U/L (0-33); Albumin Level 2.4 g/dL (3.5-5.2); Alkaline Phosphatase 207 U/L (35-105); Aspartate Amino Transferase 55 U/L (0-32); Blood Urea Nitrogen 15 mg/dL (8-23); Calcium 9.3 mg/dL (8.5-10.5); Carbon Dioxide 17 mmol/L (22-29); Chloride 94 mmol/L (98-107); Creatinine Clr Calc Pharmacy 67.1331; Glomerular Filtration Rate 62.8 mL/min (90-130); Glucose 98 mg/dL (65-115); Lipase 21 U/L (13-60); Osmolality Calculated 281 mOsm/kg (285-295); Sodium 135 mmol/L (136-145); Total Bilirubin 2.7 mg/dL (0.15-1.2); Total Protein 4.4 g/dL (6.6-8.7)
[2025-01-11] MEDS: morphine 4 mg/mL SDV 1 mL IVP (13:52)
[2025-01-11] MEDS: ondansetron 2 mg/ML SDV 2 mL 4 MG IVP (13:52)
[2025-01-11] MEDS: sodium chloride 0.9% 1,000 ML 999 ML IV (13:52)
[2025-01-11 14:00] LABS: Thyroid Stimulating Hormone 11.35 uIU/mL (0.27-4.20)
[2025-01-11 14:23] LABS: Bilirubin Urine 1+ (Negative); Blood Urine Negative (Negative); Glucose Urine UA Negative (Normal); Ketones Urine 1+ (Negative); Leukocyte Esterase Urine Negative (Negative); Nitrate Urine Positive (Negative); Protein Urine Trace (Negative); Urine Appearance Clear (CLEAR); Urobilinogen Urine 0.2 mg/dL (Negative)
[2025-01-11 14:25] LABS: Add Urine Microscopic? YES; Bacteria Urine 4+ /hpf; Hyaline Casts Urine 6.61 /lpf; RBC Urine 0-2 /hpf (0-2); Squamous Epithelial Cell Urine 0-5 /hpf (0-5); WBC Urine 0-5 /hpf (0-5)
[2025-01-11 14:30] LABS: Specific Gravity, Urine 1.032 (1.005-1.030); Urine Color Orange (Yellow)
[2025-01-11 14:31] LABS: Add Urine Culture? Yes
[2025-01-11] MEDS: pantoprazole 40 mg SDV 80 MG IVP (14:54)
--- NOTE | 2025-01-11 16:08 | PM.HP ---
Providers/Chief Complaint Admitting Physician: Amor Louise MD Primary Care Provider: Noel Landon MD Chief Complaint: ams History of Present Illness Suma Rush is a 64 year old female with past medical history of duodenal switch surgery back in 2022 at [place], atrial fibrillation, DVT in lower limb for which she is on Eliquis, Staphylococcus bacteremia for which she has finished 6 weeks of IV antibiotics due to PICC line infection presents to the ER today because of ongoing diarrhea for last 3 to 4 days with decreased appetite and abdominal pain, dizziness and confusion which has been getting worse for last 2 days. In the ER she was found to have a hemoglobin of 6.9 with Hemoccult blood positive. TSH was found to be 11.35. Hospital service was consulted for further management. Review of Systems General: Reports: 10 or more systems reviewed and unremarkable except in HPI and below Const: Denies: fever(s), chills, body aches, change in appetite, change in weight, malaise, night sweats, diaphoresis, change in sleep pattern, daytime sleepiness or snoring Eyes: Denies: change in vision, blurry vision, photophobia, eye discomfort or eye discharge ENMT: Denies: throat pain, enlarged tonsils, hoarseness, mouth pain, oral sores, dry mouth, tinnitus, nasal congestion or post nasal drip Card: Denies: chest pain, palpitations, irregular heart rhythm, edema, swelling of feet/ankles, lightheadedness, syncope, pre-syncope, dyspnea on exertion, orthopnea, leg pain with exertion or acrocyanosis Resp: Denies: dyspnea, productive cough, non-productive cough, wheezing, stridor, pain on inspiration, change in phlegm color, hemoptysis or chest congestion GI: Denies: abdominal pain, nausea, vomiting, hematemesis, coffee ground emesis, dysphagia, heartburn, diarrhea, constipation, bloating, GI cramping, change in bowel habits, pain on defecation, hematochezia or melena : Denies: flank pain, dysuria, urinary frequency, urinary urgency, urinary hesitancy, nocturia or hematuria Musc: Denies: neck pain, back pain, extremity pain, joint pain, joint swelling, joint redness, joint stiffness or limited range of motion Neuro: Denies: headache(s), numbness in extremities, weakness in extremities, sensory changes, lack of coordination, difficulty walking, frequent falls, dizziness, vertigo, confusion, Slurred speech present, difficulty communicating thoughts or seizure-like activity Psych: Denies: anxiety, depression, mood swings, panic attacks, hopelessness or irritability Endo: Denies: polyuria, polydipsia, tired all the time, cold intolerance, excessive sweating, flushing or heat intolerance John/Lymph: Denies: easy bruising or easy bleeding All/Imm: Denies: tongue swelling, facial swelling or acute wheezing Medications/Allergies Home Medications ?Medication ?Instructions ?Recorded ?Confirmed ?Last Taken ?Type gabapentin 400 mg capsule 400 mg PO TID 10/23/19 01/06/25 12/27/24 History pantoprazole 40 mg tablet,delayed 40 mg PO BID 09/01/24 01/06/25 12/27/24 History release sertraline 25 mg tablet 25 mg PO BEDTIME 09/01/24 01/06/25 12/26/24 History acetaminophen 325 mg capsule 325 mg PO QID PRN Pain 10/20/24 01/06/25 Unknown History tramadol 50 mg tablet 50 mg PO Q6H PRN Pain 10/26/24 01/06/25 Unknown History apixaban 5 mg tablet (Eliquis) 5 mg PO BID 12/27/24 01/06/25 12/27/24 History levothyroxine 137 mcg tablet 137 mcg PO QAM 12/27/24 01/06/25 12/27/24 History oqwhirxy-aiqkyzon-anja 45 mg-folic 1 cap PO QAM 12/27/24 01/06/25 12/27/24 History acid 800 mcg-vit K 120 mcg capsule (Bariatric Multivitamins) ondansetron 4 mg disintegrating 4 mg PO Q6H PRN nausea and 12/27/24 01/06/25 Unknown Rx tablet vomiting #14 tabs apixaban 5 mg tablet (Eliquis) mg 01/11/25 Unknown History cetirizine 10 mg tablet mg 01/11/25 Unknown History dicyclomine 10 mg capsule mg 01/11/25 Unknown History gabapentin 400 mg capsule mg 01/11/25 Unknown History linezolid 600 mg tablet mg 01/11/25 Unknown History omeprazole 20 mg capsule,delayed mg 01/11/25 Unknown History release ondansetron 4 mg disintegrating mg 01/11/25 Unknown History tablet sertraline 25 mg tablet mg 01/11/25 Unknown History Allergies Allergy/AdvReac Type Severity Reaction Status Date / Time lactose Allergy ADR-Diarrhe Verified 01/06/25 09:40 a Milk Containing Products AdvReac Severe ADR-Flatule Verified 01/06/25 09:40 (Dairy) nce PFSH Acute PFSH: Medical History (Updated 01/11/25 @ 16:13 by Amor Louise MD) Staphylococcus aureus bacteremia GERD (gastroesophageal reflux disease) Hypothyroidism Instability of joint Spondylolisthesis, lumbar region Morbid obesity with BMI of 50.0-59.9, adult Lumbar stenosis with neurogenic claudication Intervertebral disc disorder with radiculopathy of lumbosacral region Spondylolisthesis (~08/15/16) Surgical History (Updated 01/11/25 @ 16:13 by Amor Louise MD) Hx of colonoscopy History of esophagogastroduodenoscopy (EGD) [facility] [place] History of gastric bypass History of cholecystectomy History of tonsillectomy History of knee surgery right knee laproscopic History of hysterectomy History of cervical spinal surgery (~2016) Dr. Abran Colindres Family History Mother Stroke Arthritis Social History Smoking and tobacco/nicotine status: unknown if used tobacco/nicotine Alcohol intake: never Substance/Drug Use: never Household members: spouse and family Marital status: Current occupational status: retired and disabled Vitals/I&O/Wt Last Vital Signs Temp 97.6 F 01/11/25 11:09 Pulse 78 01/11/25 15:00 Resp 16 01/11/25 15:00 BP 93/61 01/11/25 15:00 Pulse Ox 100 01/11/25 15:00 O2 Del Method Room Air 01/11/25 15:00 Weight last 48 hrs Weight 81.647 kg Physical Exam Narrative: General: No acute distress, AO x3, slow to respond, pallor present HEENT: PERRLA, pupils bilaterally equal and reactive Chest: Normal vesicular breath sounds, no added sounds, equal good air entry bilaterally CVS: S1-S2 regular, no murmurs, no tachycardia, no gallops, no rubs Abdomen: Soft, nontender, no organomegaly, bowel sounds present Neuro: No focal deficits, no facial deformity, AO x3, power 5/5 in all limbs Data 01/11/25 13:10 01/11/25 13:10 A&P Assessment and plan (1) Acute anemia: Hemoglobin down to 6.9. Baseline seems to be around 9-9.5 back in August. Ongoing diarrhea. Takes chronic anticoagulation with Eliquis at home. Symptomatic weakness. Transfused 2 unit of PRBC. IV Protonix 40 mg every 12 hourly. Zofran as needed. Telemetry. Patient will need EGD and colonoscopy for further management. Care discussed in detail with surgical team on-call. As per surgery patient has a history of duodenal switch for which she higher tertiary center expertise with gastroenterology and bariatric surgery backup. Will request ER to transfer patient to tertiary center. Communicated with ER physician. (2) GI bleed: Check iron panel, vitamin B12 folate level. 2 unit of PRBC transfusion. Rest as above. (3) Chronic anticoagulation: Hold anticoagulation. (4) Atrial fibrillation: Telemetry. Currently rate controlled. Holding off on Eliquis. (5) Weakness: Combination of GI bleed/anemia along with severe hypothyroidism. TSH of more than 11. Plan Severe hypothyroidism: TSH more than 11. Check free T3 and free T4. Restart home dose of levothyroxine for now. CODE STATUS: Discussed detail with the patient and spouse at bedside. Full code N.p.o. Protonix for PUD prophylaxis. SCD for DVT prophylaxis PDMP PDMP Reviewed: Not Reviewed Attestations Medical Necessity Statement*: Patient requires management for acute anemia with blood transfusion and transfer to a tertiary center where gastroenterology and bariatric surgery backup is present as per surgical directions. Diagnoses Acute anemia D64.9 GI bleed K92.2 Chronic anticoagulation Z79.01 Atrial fibrillation I48.91 Weakness R53.1
[2025-01-11 16:38] LABS: Troponin 5 2HR 59.51 ng/L (0-10)
[2025-01-11 16:39] LABS: Troponin 5 2HR Delta -4.49 ABS# (0-10)
[2025-01-11] MEDS: sodium chloride 0.9% 50 ML IV (17:40)
[2025-01-11 17:41] LABS: Reflex Lactate Order REFLEX LACTIC ORDERD
[2025-01-11 17:45] LABS: Procalcitonin 1.04 ng/mL (0-0.5)
[2025-01-11 18:20] LABS: Hematocrit 18.5 % (36-47)
[2025-01-11] MEDS: tranexamic acid 1,000 MG/100 ML PREMIX 600 MG IV (19:19)
[2025-01-11] MEDS: ketamine 100 mg/mL Inj 5 mL IVP (19:23)
[2025-01-11 19:29] LABS: Troponin 5 6HR 58.16 ng/L (0-10)
[2025-01-11 19:30] LABS: Troponin 5 6HR Delta -5.84 ng/L (0-12)
--- NOTE | 2025-01-11 19:45 | XRR_ITS ---
PROCEDURE INFORMATION: Exam: XR Chest Exam date and time: 01/11/2025 7:52 PM Age: 64 years old Clinical indication: Other vascular access device placement or adjustment; Central line, non-tunnelled; Prior surgery; Surgery date: 6+ months; Surgery type: C-spine; Additional info: Post central line TECHNIQUE: Imaging protocol: Radiologic exam of the chest. Views: 1 view. Total images: 1 COMPARISON: CR XR chest 1V portable [id number] 01/11/2025 11:31 AM FINDINGS: Tubes, catheters and devices: Interval placement of a right IJ central line which extends to the inferior aspect of the right atrium near the diaphragm. This is approximately 7.5 cm inferior to the expected superior cavoatrial junction. Lungs: The lungs are clear. Pleural spaces: No pneumothorax identified. No pleural effusion Heart/Mediastinum: Cardiomediastinal silhouette is not enlarged. Bones/joints: Prior anterior cervical fusion procedure with plate. XR/XR chest 1V portable [id number] IMPRESSION: Right IJ line extends to the inferior aspect of the right atrium. Consider repositioning. No evidence of pneumothorax.
[2025-01-11] MEDS: sodium chlor 0.9% + KCl 20 mEq 20 MEQ/1,000 ML BAG 100 MEQ IV (20:30)
[2025-01-11] MEDS: cefTRIAXone 1,000 mg SDV 1000 MG IVP (20:30)
[2025-01-11] MEDS: sodium chloride 0.9% 500 ML 999 ML IV (20:30)
--- NOTE | 2025-01-11 20:49 | XRR_ITS ---
PROCEDURE INFORMATION: Exam: XR Chest Exam date and time: 01/11/2025 8:51 PM Age: 64 years old Clinical indication: Device placement; Other: Central line repositioning; Additional info: Central line placement reposition TECHNIQUE: Imaging protocol: Radiologic exam of the chest. Views: 1 view. Total images: 1 COMPARISON: CR (CHEST, ) 01/11/2025 7:52 PM FINDINGS: Lungs: Clear. Pleural spaces: There is no pneumothorax identified. Heart/Mediastinum: Stable cardiomediastinal silhouette. Vasculature: Interval repositioning of the right IJ line sites that tip now projects adjacent to the location expected for the superior cavoatrial junction. Bones/joints: No acute osseous abnormality identified. XR/XR chest 1V portable [id number] IMPRESSION: Right IJ line tip now projects at location expected for the superior cavoatrial junction.
[2025-01-11 20:58] LABS: Lactic Acid level (Lactate) 6.4 mmol/L (0.5-2.2)
--- NOTE | 2025-01-11 23:33 | ECG_ITS ---
[facility] Date: 2025-[facility]11 Pat Name: Suma Rush Department: Room: Gender: Female Forensic Science Technician: : 1960 Requested By: Gabo Huerta Order Number: [id number] Lisa MD: Derrick Ward M.D. Measurements Intervals Jansen Rate: 76 P: 70 KS: 163 QRS: -37 QRSD: 86 T: 0 QT: 186 QTc: 209 Interpretive Statements SINUS RHYTHM LEFT AXIS DEVIATION [QRS AXIS < -30] LOW QRS VOLTAGE [QRS DEFLECTION < 0.5/1.0 mV IN LIMB/CHEST LEADS] POSSIBLE RIGHT VENTRICULAR CONDUCTION DELAY [RSR (QR) IN V1/V2] Compared to ECG 01/11/2025 14:53:58 Left-axis deviation now present Left anterior fascicular block no longer present Myocardial infarct finding no longer present Electronically Signed On 01-13-2025 22:21:26 CDT by Derrick Ward M.D. [id number] [id number]
[2025-01-12 00:01] VITALS: BP 111/45; PULSE 82; RESP 18; TEMP 36.6; O2SAT 100
--- NOTE | 2025-01-12 00:07 | PC.NURSE ---
pt b/p dropped to 83/51 at 2315 recheck 78/49, pt placed in trendelenburg. Dr Titus made aware and at bed side. MD states OK to continue the blood transfusion and rate of primary fluids increased to 200 ml/hr. pt states her stomach was starting to hurt and the pain in her left arm was increasing. pt blood pressure increased and decision to fly pt to [facility] made by . subsequent b/p improved and as charted in TAR. pt began to state she was seeing a goose or duck floating around room and attempted to hand me her earring no object noted in her hands. air evac at bed side and pt to be transported at this time. blood transfusion continued on discharge.
[2025-01-12 00:29] VITALS: BP 111/48; PULSE 84; RESP 18; TEMP 36.6; O2SAT 100
== END 2025-01-12 00:32 | disposition short-term general hospital (02) ==
LOC: ER 12:22 → MEDSURG 16:21 → ER 17:53
PROVIDERS: Emergency Medicine; Student in an Organized Health Care Education/Training Program; Emergency Provider Family Medicine; PCP Family Medicine
DX: K92.2 Gastrointestinal hemorrhage, unspecified (principal); Z98.890 Other specified postprocedural states
CPT/HCPCS: 36415; 36416; 36430; 36556; 70450; 71045; 74177; 80053; 81001; 82962; 83605; 83690; 84145; 84443; 84484; 85014; 85018; 85025; 85610; 86850; 86900; 86920; 86927; 87040; 87077; 87086; 87186; 93005; 94799; 96361; 96374; 96375; 99152; 99291; J0696; J2270; J2405; J2470; J3480; J3490; J7030; J7040; J9999; P9016; P9017